=== PATIENT | male | born 1945 | race Caucasian/White ===

== ENCOUNTER 2018-01-01 09:21 | Emergency (ER) | payer BC ==
--- OUTSIDE RECORDS SUMMARY | 2018-01-01 09:54 | XMS REPORT | Continuity of Care Document ---
:1945 External Reference #:[id number] Author Name Dian Crystal Care Team Providers Name Role Phone Jax Hall MD Primary Care Physician Unavailable Payers Type Date Identification Numbers Payment Provider Subscriber Policy Number: [id number] Medicare Blue o Binh Silva PayID: [id number] [facility] [address] [place] [address] Advance Directives Description No Information Available Problems Date Description Provider Status Onset: 08/15/2010 Hyperlipidemia Jax Hall MD Active Onset: 08/15/2010 Obstructive sleep apnea syndrome Jax Hall MD Active Onset: 08/15/2010 Benign hypertensive heart disease without Jax Hall MD Active congestive heart failure Onset: 08/15/2010 Congenital insufficiency of mitral valve Jax Hall MD Active Onset: 08/15/2010 Mitral valve disorder Jax Hall MD Active Onset: 08/15/2010 Coronary arteriosclerosis Jax Hall MD Active Onset: 08/15/2010 Peripheral vascular disease Jax Hall MD Active Onset: 08/15/2010 Palpitations Jax Hall MD Active Onset: 08/15/2010 Carotid artery occlusion Jax Hall MD Active Onset: 08/15/2010 Sinus node dysfunction Jax Hall MD Active Onset: 08/15/2010 Phlebitis and thrombophlebitis Jax Hall MD Active Onset: 08/15/2010 Acute serous otitis media Jax Hall MD Active Onset: 08/15/2010 Primary pulmonary hypertension Jax Hall MD Active Onset: 08/15/2010 Backache Jax Hall MD Active Onset: 08/15/2010 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 Onset: 08/15/2010 Rheumatic disease of tricuspid valve Jax Hall MD Active Onset: 08/15/2010 Hyperkalemia Jax Hall MD Active Family History Date Family Member(s) Problem(s) Comments Father Diabetes Mellitus, II age 70 Father Heart Disease Mother due to Heart Disease () Social History Type Date Description Comments Sex Unknown Cigarette Use Pipe Smoker 30 Years Ago ETOH Use Denies alcohol use Recreational Drug Use Denies Drug Use Tobacco Use Start: Unknown End: Unknown Patient is a former smoker Smoking Status Reviewed: 12/25/16 Patient is a former smoker Seat Belt/Car Seat Always uses a seat belt Allergies, Adverse Reactions, Alerts Description No Known Drug Allergies Medications Medication Date Status Form Strength Qnty SIG Indications Ordering Provider Metformin HCL 10/29/ Active Tablets ER 1000mg 90tabs 1 by mouth E11.65 Jax F. ER (Mod) 2018 24HR every day MD Rafael Freestyle Lite 01/30/ Active 1units test one Jax F. Glucose Meter 2016 time MD Rafael daily. dx e11.65 Freestyle L;Ite 01/30/ Active 90unit test once Jax F. Strips 2016 s daily dx MD Rafael e11.65 Freestyle Lite 01/30/ Active 100uni test once Jax F. Lancets 2016 ts daily dx MD Rafael e11.65 Vitamin D-3 10/19/ Active Capsules 1000Unit 100cap 1 by mouth E55.9 Jax F. 2014 s every day MD Rafael Diltiazem HCL 11/17/ Active Caps ER 360mg 90caps 1 by mouth Jax F. ER Beads 2013 24HR every day MD Rafael Astepro 02/27/ Active Solution 0.15% 1units 1-2 sprays Jax F. 2010 to each MD Rafael nose daily. Enalapril 07/18/ Active Tablets 10mg 180tab 1 by mouth E78.5 Jax F. Maleate 2010 s twice a MD Rafael day Claritin 06/14/ Active Capsules 10mg 30caps 1 po qd Ajx FBlack 2009 MD Rafael Zocor 11/26/ Active Tablets 80mg 90tabs 1 by mouth Jax F. 2007 every day MD Rafael Multivitamins 05/09/ Active Caplets Jax Castellano 2005 MD Rafael Turmeric / Active Capsules 500mg Unknown 0000 Januvia 10/29/ Hx Tablets 50mg 90tabs 1 by mouth E11.65 Jax FBlack 2017 - every day MD Rafael 2017 Metformin HCL 06/26/ Hx Tablets ER 500mg 90tabs tab 1 by E11.65 Jax F. ER 2016 - 24HR mouth MD Rafael 2017 evening Metformin HCL 01/30/ Hx Tablets ER 500mg 90tabs 1 by mouth E11.65 Jax FBlack ER (Mod) 2015 - 24HR every day MD Rafael 2016 Calcium 600-D 10/19/ Hx Tablets 600-400mg- 180tab 1 po bid E55.9 Jax Castellano 2015 - Unit felicity Hall MD 2017 Diltiazem HCL 06/23/ Hx Caps ER 360mg 90caps 1 po qd Jax FBlack ER 2013 - 24HR MD Rafael 2013 Diltiazem XR 12/17/ Hx Caps ER 360mg 90caps 1 po qd Jax Castellano 2012 - 24HR MD Rafael 2012 Diltiazem HCL 12/17/ Hx Caps ER 360mg 90caps 1 po qd Jax Castellano 2012 - 24HR MD Rafael 2013 Zostavax 12/17/ Hx Solution [id number] 1units injection Jax Castellano 2012 - Rec .65ML as ordered MD Rafael 2013 Calcium 600 + D 02/27/ Hx Tablets 600-400mg- 180tab 1 po bid 268.9 Jax Castellano 2011 - Unit felicity Hall MD 2014 Ciprofloxacin 12/20/ Hx Tablets 500mg 20tabs 1 po bid 604.99 Jax Castellano HCL 2010 - MD Rafael 2010 Loratadine 07/13/ Hx Tablets 10mg 90tabs 1 PO qd Jax FBlack 2008 - prn MD Rafael 2008 Levaquin 03/14/ Hx Tablets 500mg 10tabs 1 po qd Josh 2005 Jamila Nguyen MD 2005 Zocor 08/28/ Hx Tablets 80mg 135tab 1 1/2 po q Jax Castellano 2006 - s day MD Rafael 2007 Ibuprofen 05/09/ Hx Caplets 200mg 2 Tabs PO Jax Castellano 2006 - Q 4 HRS MD Rafael 11/17/ prn 2013 Zocor 05/09/ Hx Tablets 80mg 90tabs 1 PO qd. Jax Hall MD 2005 Diltiazem SR 05/09/ Hx Tablets 360 90tabs 1 PO qd Jax Hall MD 2012 Immunizations CPT Code Status Date Vaccine Reaction Lot # [id number] Given 12/25/2016 Flulaval Q2035 Given 12/25/2016 Influenza Virus (Afluria) Split Virus 3 Years Of Age And Older Q2037 Given 01/31/2016 Influenza Vaccine (Fluvirin) 3 Years Of Age Or Older 59891 Given 11/01/2015 Tetanus,Diphtheria,Adut/Adol [id number] Pertussis Q2035 Given 12/23/2014 Influenza Virus (Afluria) Split Virus 3 Years Of Age And Older 26948 Given 10/29/2014 Pneumococcal Conjugate Vaccine [id number] 13 Valent For Intramuscular Use Q2037 Given 01/15/2014 Influenza Vaccine (Fluvirin) 2 Years Of Age Or Older 46912 Given 02/25/2013 Influenza Virus Vaccine Done at [facility] 9h2 (History Only) 16238 Given 02/14/2013 Zostavax Q2037 Given 12/25/2011 Influenza Vaccine (Fluvirin) 3 [id number] Years Of Age Or Older 94180 Given 02/27/2011 Pneumovax Polyvalent Inj Im [id number] Q2036 Given 01/03/2011 Flulaval [id number] 41670 Given 02/28/2010 Influenza Vaccine [id number] 75464 Given 01/01/2008 Influenza Vaccine 52804 42718 Given 01/17/2007 Influenza Vaccine 83393 08980 Given 01/12/2006 Influenza Vaccine 89268 Given 01/12/2006 Influenza Vaccine 22398 00367 Given 01/17/2005 Tetanus And Diptheria Toxiods [id number] 42642 Given 01/17/2005 Tetanus And Diptheria Toxiods Vital Signs Date Vital Result Comment 12/11/2017 2:34pm BP Systolic 110 mmHg BP Diastolic 54 mmHg Heart Rate 58 /min Height 66 inches 5'6" Weight 189.00 lb BMI (Body Mass Index) 30.5 kg/m2 O2 % BldC Oximetry 97 % 10/29/2017 2:18pm BP Systolic 110 mmHg BP Diastolic 58 mmHg Heart Rate 74 /min Height 66 inches 5'6" Weight 197.00 lb BMI (Body Mass Index) 31.8 kg/m2 O2 % BldC Oximetry 95 % 08/22/2017 11:45am BP Systolic 134 mmHg BP Diastolic 70 mmHg Height 66 inches 5'6" Weight 197.00 lb BMI (Body Mass Index) 31.8 kg/m2 07/24/2017 11:17am BP Systolic 144 mmHg BP Diastolic 76 mmHg Heart Rate 74 /min Respiratory Rate 18 /min Height 66 inches 5'6" Weight 197.00 lb BMI (Body Mass Index) 31.8 kg/m2 O2 % BldC Oximetry 97 % 04/30/2017 12:19pm BP Systolic 132 mmHg BP Diastolic 70 mmHg Height 66 inches 5'6" Weight 196.00 lb BMI (Body Mass Index) 31.6 kg/m2 12/25/2016 11:30am BP Systolic 138 mmHg BP Diastolic 70 mmHg Height 66 inches 5'6" Weight 192.00 lb BMI (Body Mass Index) 31.0 kg/m2 06/26/2016 10:41am BP Systolic 140 mmHg BP Diastolic 78 mmHg Height 66 inches 5'6" Weight 192.00 lb BMI (Body Mass Index) 31.0 kg/m2 02/21/2016 11:51am BP Systolic 138 mmHg BP Diastolic 76 mmHg 01/31/2016 11:08am BP Systolic 132 mmHg BP Diastolic 68 mmHg Height 66 inches 5'6" Weight 196.00 lb BMI (Body Mass Index) 31.6 kg/m2 11/01/2015 10:21am BP Systolic 120 mmHg BP Diastolic 62 mmHg Height 66 inches 5'6" Weight 192.00 lb BMI (Body Mass Index) 31.0 kg/m2 06/28/2015 2:21pm BP Systolic 132 mmHg BP Diastolic 68 mmHg Height 66 inches 5'6" Weight 186.00 lb BMI (Body Mass Index) 30.0 kg/m2 02/22/2015 10:19am BP Systolic 140 mmHg BP Diastolic 72 mmHg Height 66 inches 5'6" Weight 202.00 lb BMI (Body Mass Index) 32.6 kg/m2 10/19/2014 9:56am BP Systolic 130 mmHg BP Diastolic 64 mmHg Height 66 inches 5'6" Weight 202.00 lb BMI (Body Mass Index) 32.6 kg/m2 06/29/2014 1:24pm BP Systolic 124 mmHg BP Diastolic 60 mmHg Height 66 inches 5'6" Weight 205.00 lb BMI (Body Mass Index) 33.1 kg/m2 02/23/2014 11:19am BP Systolic 126 mmHg BP Diastolic 78 mmHg Height 66 inches 5'6" Weight 202.00 lb BMI (Body Mass Index) 32.6 kg/m2 11/17/2013 10:48am BP Systolic 118 mmHg BP Diastolic 60 mmHg Height 66 inches 5'6" Weight 204.00 lb BMI (Body Mass Index) 32.9 kg/m2 07/29/2013 9:59am BP Systolic 128 mmHg BP Diastolic 60 mmHg Height 66 inches 5'6" Weight 201.00 lb BMI (Body Mass Index) 32.4 kg/m2 06/23/2013 10:43am BP Systolic 134 mmHg BP Diastolic 80 mmHg Height 66 inches 5'6" Weight 205.00 lb BMI (Body Mass Index) 33.1 kg/m2 12/17/2012 10:01am BP Systolic 124 mmHg BP Diastolic 62 mmHg Height 66 inches 5'6" Weight 202.00 lb BMI (Body Mass Index) 32.6 kg/m2 05/13/2012 10:19am BP Systolic 118 mmHg BP Diastolic 68 mmHg Height 66 inches 5'6" Weight 203.00 lb BMI (Body Mass Index) 32.8 kg/m2 12/25/2011 10:47am BP Systolic 134 mmHg BP Diastolic 64 mmHg Height 66 inches 5'6" Weight 199.00 lb BMI (Body Mass Index) 32.1 kg/m2 06/26/2011 11:01am BP Systolic 142 mmHg BP Diastolic 80 mmHg Height 66 inches 5'6" Weight 198.00 lb BMI (Body Mass Index) 32.0 kg/m2 02/27/2011 11:26am BP Systolic 138 mmHg BP Diastolic 70 mmHg Height 66 inches 5'6" Weight 197.00 lb BMI (Body Mass Index) 31.8 kg/m2 01/03/2011 2:14pm BP Systolic 110 mmHg BP Diastolic 62 mmHg Height 66 inches 5'6" 12/20/2010 3:02pm BP Systolic 120 mmHg BP Diastolic 68 mmHg Body Temperature 97.8 F Height 66 inches 5'6" Weight 193.00 lb BMI (Body Mass Index) 31.1 kg/m2 10/24/2010 3:19pm BP Systolic 124 mmHg BP Diastolic 68 mmHg Height 66 inches 5'6" Weight 200.00 lb BMI (Body Mass Index) 32.3 kg/m2 08/15/2010 2:41pm BP Systolic 122 mmHg pt machine 142/73 BP Diastolic 68 mmHg pt machine 142/73 Height 66 inches 5'6" Weight 202.00 lb BMI (Body Mass Index) 32.6 kg/m2 07/18/2010 11:27am BP Systolic 158 mmHg with pt machine BP Diastolic 86 mmHg with pt machine BP Systolic Recheck 179 mmHg BP Diastolic Recheck 94 mmHg Height 66 inches 5'6" Weight 202.00 lb BMI (Body Mass Index) 32.6 kg/m2 06/27/2010 10:20am BP Systolic 148 mmHg BP Diastolic 80 mmHg Height 66 inches 5'6" Weight 198.00 lb BMI (Body Mass Index) 32.0 kg/m2 02/28/2010 10:43am BP Systolic 146 mmHg BP Diastolic 80 mmHg Height 66 inches 5'6" Weight 198.00 lb BMI (Body Mass Index) 32.0 kg/m2 10/25/2009 10:57am BP Systolic 142 mmHg BP Diastolic 84 mmHg Height 66 inches 5'6" Weight 185.00 lb BMI (Body Mass Index) 29.9 kg/m2 06/14/2009 10:34am BP Systolic 122 mmHg BP Diastolic 70 mmHg Height 66 inches 5'6" Weight 147.00 lb BMI (Body Mass Index) 23.7 kg/m2 03/08/2009 10:06am BP Systolic 126 mmHg BP Diastolic 62 mmHg Height 66 inches 5'6" Weight 193.00 lb BMI (Body Mass Index) 31.1 kg/m2 11/09/2008 10:32am BP Systolic 132 mmHg BP Diastolic 78 mmHg Height 66 inches 5'6" Weight 195.00 lb BMI (Body Mass Index) 31.5 kg/m2 07/13/2008 11:03am BP Systolic 138 mmHg BP Diastolic 78 mmHg Height 66 inches 5'6" Weight 197.00 lb BMI (Body Mass Index) 31.8 kg/m2 03/16/2008 10:15am BP Systolic 136 mmHg BP Diastolic 80 mmHg Height 66 inches 5'6" Weight 196.00 lb BMI (Body Mass Index) 31.6 kg/m2 01/14/2008 2:21pm BP Systolic 128 mmHg BP Diastolic 70 mmHg Height 66 inches 5'6" Weight 192.00 lb BMI (Body Mass Index) 31.0 kg/m2 01/01/2008 3:18pm BP Systolic 144 mmHg L Arm Machine BP Diastolic 72 mmHg L Arm Machine BP Systolic Recheck 128 mmHg R Arm Manual BP Diastolic Recheck 72 mmHg R Arm Manual Height 66 inches 5'6" Weight 190.00 lb BMI (Body Mass Index) 30.7 kg/m2 11/27/2007 11:42am BP Systolic 140 mmHg BP Diastolic 82 mmHg Height 66 inches 5'6" Weight 190.00 lb BMI (Body Mass Index) 30.7 kg/m2 11/05/2007 11:59am BP Systolic 112 mmHg BP Diastolic 64 mmHg Height 66 inches 5'6" Weight 187.00 lb BMI (Body Mass Index) 30.2 kg/m2 12/19/2006 11:07am BP Systolic 122 mmHg BP Diastolic 62 mmHg Height 66 inches 5'6" Weight 191.00 lb BMI (Body Mass Index) 30.8 kg/m2 08/07/2006 3:21pm BP Systolic 112 mmHg BP Diastolic 64 mmHg Height 66 inches 5'6" Weight 192.00 lb BMI (Body Mass Index) 31.0 kg/m2 03/14/2006 10:51am Heart Rate 88 /min Body Temperature 98.2 F Height 66 inches 5'6" O2 % BldC Oximetry 96 % 01/23/2006 10:50am BP Systolic 116 mmHg BP Diastolic 70 mmHg Height 66 inches 5'6" Weight 190.00 lb BMI (Body Mass Index) 30.7 kg/m2 09/12/2005 3:09pm BP Systolic 118 mmHg BP Diastolic 68 mmHg Height 66 inches 5'6" Weight 186.00 lb BMI (Body Mass Index) 30.0 kg/m2 08/28/2005 10:57am BP Systolic 128 mmHg BP Diastolic 80 mmHg Height 66 inches 5'6" Weight 189.00 lb BMI (Body Mass Index) 30.5 kg/m2 2005 10:05am BP Systolic 138 mmHg BP Diastolic 78 mmHg Height 66 inches 5'6" Weight 190.00 lb BMI (Body Mass Index) 30.7 kg/m2 05/10/2005 10:52am BP Systolic 144 mmHg BP Diastolic 84 mmHg Results Test Date Facility Test Result H/L Range Note Laboratory test 10/15/2017 [facility] Hemoglobin A1c 8.4 % High 0-5.[address] [place] [address] [phone] Lipid Panel 10/15/2017 [facility] Cholesterol 161 mg/dL <[address] [place] [address] [phone] HDL Cholesterol 41 mg/dL >40 Cholesterol/HDL Ratio 3.9 CALC <5.0 LDL Chol,Calculated 93 mg/dL 0-100 2 Triglycerides 175 mg/dL High <150 Non-HDL Cholesterol 120 mg/dL <130 3 Basic Metabolic Panel 10/15/2017 [facility] Sodium 141 mmol/L 135-[address] [place] [address] [phone] Potassium 4.2 mmol/L 3.5-5.3 Chloride 106 mmol/L 98-110 Carbon Dioxide 28 mmol/L 20-31 Calcium 9.2 mg/dL 8.6-10.3 Glucose 148 mg/dL High 65-99 4 Urea Nitrogen (BUN) 26 mg/dL High 7-25 Creatinine 1.69 mg/dL High 0.70-1.18 5 BUN/Creatinine Ratio 15.3 6-22 Egfr Non-Afr. [place] 39 ML/MIN/1.73M2 Low > Or=60 Egfr 46 ML/MIN/1.73M2 Low > Or=60 Laboratory test 07/12/2017 [facility] Hemoglobin A1c 8.0 % High 0-5.6 6, [address] [place] [address] [phone] Basic Metab W/O 07/12/2017 [facility] Sodium 139 135-[address] mmol/[place] [address] [phone] Potassium 4.2 mmol/L 3.5-5.3 Chloride 104 mmol/L 98-110 Carbon Dioxide 31 mmol/L 20-31 Glucose 139 mg/dL High 65-99 8 Urea Nitrogen (BUN) 18 mg/dL 7-25 Creatinine 1.43 mg/dL High 0.70-1.18 9 BUN/Creatinine Ratio 12.7 6-22 Lipid Panel 07/12/2017 [facility] Cholesterol 186 mg/dL <199 [address] [place] [address] [phone] HDL Cholesterol 44 mg/dL >40 Cholesterol/HDL Ratio 4.2 CALC <5.0 LDL Chol,Calculated 110 mg/dL High 0-100 10 Triglycerides 196 mg/dL High <150 Non-HDL Cholesterol 142 mg/dL High <130 11 Laboratory test 04/23/2017 [facility] Hemoglobin A1c 7.9 % High 0-5.6 12 finding [address] [facility] [place] [address] [phone] Lipid Panel 04/23/2017 [facility] Cholesterol 152 mg/dL <199 [address] [facility] [place] [address] [phone] HDL Cholesterol 45 mg/dL >40 Cholesterol/HDL Ratio 3.4 CALC <5.0 LDL Chol,Calculated 86 mg/dL 0-100 13 Triglycerides 112 mg/dL <150 Non-HDL Cholesterol 107 mg/dL <130 14 Basic Metabolic Panel 04/23/2017 [facility] Sodium 142 mmol/L 135-146 [address] [facility] [place] [address] [phone] Potassium 5.0 mmol/L 3.5-5.3 Chloride 110 mmol/L 98-110 Carbon Dioxide 28 mmol/L 20-31 Calcium 9.6 mg/dL 8.6-10.3 Glucose 141 mg/dL High 65-99 15 Urea Nitrogen (BUN) 26 mg/dL High 7-25 Creatinine 1.52 mg/dL High 0.70-1.18 16 BUN/Creatinine Ratio 17.4 6-22 Egfr Non-Afr. [place] 45 ML/MIN/1.73M2 Low > Or=60 Egfr 52 ML/MIN/1.73M2 Low > Or=60 Comp Metabolic Panel 11/21/2016 [facility] Sodium 139 mmol/L 135-146 [address] [facility] [place] [address] [phone] Potassium 4.1 mmol/L 3.5-5.3 Chloride 104 mmol/L 98-110 Carbon Dioxide 27 mmol/L 20-31 Calcium 9.2 mg/dL 8.6-10.3 Alkaline Phosphatase 102 U/L 40-115 Ast 25 U/L 10-35 Alt 16 U/L 9-46 Bilirubin,Total 0.5 mg/dL 0.2-1.2 Glucose 131 mg/dL High 65-99 17 Urea Nitrogen 23 mg/dL 7-25 Creatinine 1.45 mg/dL High 0.70-1.18 18 BUN/Creatinine Ratio 15.6 6-22 Protein,Total 7.0 g/dL 6.1-8.1 Albumin 4.1 g/dL 3.6-5.1 Globulin,Calculated 2.9 g/dL 1.9-3.7 A/G Ratio 1.4 1.0-2.5 Egfr Non-Afr. [place] 48 ML/MIN/1.73M2 Low > Or=60 Egfr 55 ML/MIN/1.73M2 Low > Or=60 CBC W/ Diff & PLT 11/21/2016 [facility] WBC 6.7 thous/L 3.8-10.8 [address] [place] [address] [phone] RBC 4.55 mill/L 4.20-5.80 Hemoglobin 13.9 g/dL 13.2-17.1 Hematocrit 41.4 % 38.5-50.0 MCV 91.0 FL 80.0-100.0 MCH 30.6 pg 27.0-33.0 MCHC 33.6 g/dL 32.0-36.0 RDW 14.3 % 11.0-15.0 Platelet Count 151 thous/L 140-400 Platelet Sufficiency PENDING MPV 9.7 FL 7.5-12.5 Neutrophils,Absolute 4290 cells/L 1369-6647 Bands,Absolute PENDING Metamyelocytes,Absolute PENDING Myelocytes,Absolute PENDING Promyelocytes,Absolute PENDING Lymphocytes,Absolute 1690 cells/L 850-3900 Monocytes,Absolute 540 cells/L 200-950 Eosinophils,Absolute 110 cells/L 15-500 Basophils,Absolute 50 cells/L 0-200 Blast Cells,Absolute PENDING Nucleated RBC,Absolute PENDING Total Neutrophils,% 64 % 40-75 Bands,% PENDING Metamyelocytes,% PENDING Myelocytes,% PENDING Promyelocytes,% PENDING Total Lymphocytes,% 25 % 12-47 Monocytes,% 8 % 4-12 Eosinophils,% 2 % 0-4 Basophils,% 1 % 0-1 19 Blasts,% PENDING Nucleated RBC PENDING RBC Morphology PENDING Anisocytosis PENDING Poikilocytosis PENDING Microcytosis PENDING Macrocytosis PENDING Polychromasia PENDING Hypochromasia PENDING Target Cells PENDING Basophilic Stippling PENDING Comment PENDING Laboratory test 11/21/2016 [facility] Hemoglobin A1c 6.9 % High 0-5.6 [address] [place] [address] [phone] Laboratory test 11/21/2016 [facility] Testosterone,To 552 432-[address] elba,LC/MS/MS ng/dL [place], [place] [id number] [phone] Vitamin D,25-Hydroxy,Total,Immunoassay 34 NG/ML 30-100 22 PSA,Total 1.6 NG/ML < Or=4.0 23 Lipid Panel 11/21/2016 [facility] Cholesterol 133 mg/dL 125-[address] [place] [address] [phone] HDL Cholesterol 43 mg/dL > Or=40 Cholesterol/HDL Ratio 3.1 < Or=5.0 LDL Chol,Calculated 65 mg/dL <130 24 Triglycerides 126 mg/dL <150 Non-HDL Cholesterol 90 mg/dL 25 Basic Metabolic Panel 06/19/2016 [facility] Sodium 142 mmol/L 135-[address] [place] [address] [phone] Potassium 4.3 mmol/L 3.5-5.3 Chloride 106 mmol/L 98-110 Carbon Dioxide 28 mmol/L 20-31 Calcium 9.4 mg/dL 8.6-10.3 Glucose 116 mg/dL High 65-99 26 Urea Nitrogen 25 mg/dL 7-25 Creatinine 1.59 mg/dL High 0.70-1.18 27 BUN/Creatinine Ratio 15.5 6-22 Egfr Non-Afr. [place] 43 ML/MIN/1.73M2 Low > Or=60 Egfr 50 ML/MIN/1.73M2 Low > Or=60 Laboratory test 06/19/2016 [facility] Cholesterol 142 mg/dL 125-[address] [place], [place] [address] [phone] Hemoglobin A1c 7.1 % High 0.0-5.6 28 Basic Metabolic Panel 02/14/2016 [facility] Sodium 141 mmol/L 135-[address] [place], [place] [address] [phone] Potassium 4.3 mmol/L 3.5-5.3 Chloride 107 mmol/L 98-110 Carbon Dioxide 28 mmol/L 20-31 Calcium 9.4 mg/dL 8.6-10.3 Glucose 123 mg/dL High 65-99 29 Urea Nitrogen 23 mg/dL 7-25 Creatinine 1.42 mg/dL High 0.70-1.18 30 BUN/Creatinine Ratio 15.9 6-22 Egfr Non-Afr. [place] 49 ML/MIN/1.73M2 Low > Or=60 Egfr 57 ML/MIN/1.73M2 Low > Or=60 Laboratory test 01/24/2016 [facility] Hemoglobin A1c 7.1 % High 0.0-5.6 [address] [place], [place] [address] [phone] Basic Metabolic 01/24/2016 [facility] Sodium 142 135-[address] mmol/[place] [address] [phone] Potassium 4.4 mmol/L 3.5-5.3 Chloride 109 mmol/L 98-110 Carbon Dioxide 26 mmol/L 20-31 Calcium 9.3 mg/dL 8.6-10.3 Glucose 129 mg/dL High 65-99 32 Urea Nitrogen 26 mg/dL High 7-25 Creatinine 1.36 mg/dL High 0.70-1.18 33 BUN/Creatinine Ratio 19.3 6-22 Egfr Non-Afr. [place] 52 ML/MIN/1.73M2 Low > Or=60 Egfr 60 ML/MIN/1.73M2 > Or=60 TSH & T4,Free 10/22/2015 [facility] TSH 2.98 mIU/L 0.40-4.[address] [place] [address] [phone] T4,Free 1.0 ng/dL 0.8-1.8 Laboratory 10/22/2015 [facility] Testosterone,Total,LC/MS/MS 462 250- 1100 34 test finding [address] ng/[place] [address] [phone] PSA,Total 2.1 NG/ML < Or=4.0 35 Vitamin D,25-Hydroxy,Total,Immunoassay 34 NG/ML 30-100 36 CBC W/ Diff & PLT 10/22/2015 [facility] WBC 6.2 thous/L 3.8-10.[address] [place] [address] [phone] RBC 4.51 mill/L 4.20-5.80 Hemoglobin 13.9 g/dL 13.2-17.1 Hematocrit 42.1 % 38.5-50.0 MCV 93.4 FL 80.0-100.0 MCH 30.8 pg 27.0-33.0 MCHC 33.0 g/dL 32.0-36.0 RDW 15.8 % High 11.0-15.0 Platelet Count 167 thous/L 140-400 Platelet Sufficiency PENDING MPV 9.7 FL 7.5-11.5 Neutrophils,Absolute 3790 cells/L [phone] Bands,Absolute PENDING Metamyelocytes,Absolute PENDING Myelocytes,Absolute PENDING Promyelocytes,Absolute PENDING Lymphocytes,Absolute 1640 cells/L 850-3900 Monocytes,Absolute 590 cells/L 200-950 Eosinophils,Absolute 110 cells/L 15-500 Basophils,Absolute 40 cells/L 0-200 Blast Cells,Absolute PENDING Nucleated RBC,Absolute PENDING Total Neutrophils,% 61 % 40-75 Bands,% PENDING Metamyelocytes,% PENDING Myelocytes,% PENDING Promyelocytes,% PENDING Total Lymphocytes,% 27 % 12-47 Monocytes,% 10 % 4-12 Eosinophils,% 2 % 0-4 Basophils,% 1 % 0-1 37 Blasts,% PENDING Nucleated RBC PENDING RBC Morphology PENDING Anisocytosis PENDING Poikilocytosis PENDING Microcytosis PENDING Macrocytosis PENDING Polychromasia PENDING Hypochromasia PENDING Target Cells PENDING Basophilic Stippling PENDING Comment PENDING CMP W/O Egfr 10/22/2015 [facility] Sodium 143 mmol/L 135-[address] [place] [address] [phone] Potassium 4.2 mmol/L 3.5-5.3 Chloride 108 mmol/L 98-110 Carbon Dioxide 24 mmol/L 19-30 Calcium 9.5 mg/dL 8.6-10.3 Alkaline Phosphatase 89 U/L 40-115 Ast 29 U/L 10-35 Alt 18 U/L 9-46 Bilirubin,Total 0.8 mg/dL 0.2-1.2 Glucose 115 mg/dL High 65-99 38 Urea Nitrogen 29 mg/dL High 7-25 Creatinine 1.51 mg/dL High 0.70-1.18 39 BUN/Creatinine Ratio 19.1 6-22 Protein,Total 7.0 g/dL 6.1-8.1 Albumin 4.1 g/dL 3.6-5.1 Globulin,Calculated 2.9 g/dL 1.9-3.7 A/G Ratio 1.4 1.0-2.5 Lipid Panel 10/22/2015 [facility] Cholesterol 165 mg/dL 125-200 [address] [facility] [place] [address] [phone] HDL Cholesterol 50 mg/dL > Or=40 Cholesterol/HDL Ratio 3.3 < Or=5.0 LDL Chol,Calculated 94 mg/dL <130 40 Triglycerides 107 mg/dL <150 Non-HDL Cholesterol 115 mg/dL 41 Lipid Panel 06/21/2015 [facility] Cholesterol 221 mg/dL High 125-200 [address] [facility] [place] [address] [phone] HDL Cholesterol 41 mg/dL > Or=40 Cholesterol/HDL Ratio 5.4 High < Or=5.0 LDL Chol,Calculated 143 mg/dL High <130 42 Triglycerides 185 mg/dL High <150 Non-HDL Cholesterol 180 mg/dL High 43 Lipid Panel 02/08/2015 [facility] Cholesterol 130 mg/dL 125-200 [address] [facility] [place] [address] [phone] HDL Cholesterol 37 mg/dL Low > Or=40 Cholesterol/HDL Ratio 3.5 < Or=5.0 LDL Chol,Calculated 64 mg/dL <130 44 Triglycerides 145 mg/dL <150 Non-HDL Cholesterol 93 mg/dL 45 Laboratory test 10/07/2014 [facility] PSA,Total 1.4 NG/ML 0.0-4.0 46 finding [address] [facility] [place] [address] [phone] Testosterone,Total,LC/MS/MS 446 ng/dL 250-1100 47 Vitamin D,25-Hydroxy,Total,Immunoassay 22 NG/ML Low 30-100 48 CMP W/O Egfr 10/07/2014 [facility] Sodium 140 mmol/L 135-[address] [place] [address] [phone] Potassium 4.1 mmol/L 3.5-5.3 Chloride 105 mmol/L 98-110 Carbon Dioxide 24 mmol/L 19-30 Calcium 9.1 mg/dL 8.6-10.3 Alkaline Phosphatase 87 U/L 40-115 Ast 31 U/L 10-35 Alt 21 U/L 9-46 Bilirubin,Total 0.7 mg/dL 0.2-1.2 Glucose 134 mg/dL High 65-99 49 Urea Nitrogen 17 mg/dL 7-25 Creatinine 1.37 mg/dL High 0.70-1.18 50 BUN/Creatinine Ratio 12.0 6-22 Protein,Total 6.9 g/dL 6.1-8.1 Albumin 3.9 g/dL 3.6-5.1 Globulin,Calculated 3.0 g/dL 1.9-3.7 A/G Ratio 1.3 1.0-2.5 CBC W/ Diff & PLT 10/07/2014 [facility] WBC 6.4 thous/L 3.8-10.[address] [place] [address] [phone] RBC 4.62 mill/L 4.20-5.80 Hemoglobin 14.1 g/dL 13.2-17.1 Hematocrit 43.1 % 38.5-50.0 MCV 93.3 FL 80.0-100.0 MCH 30.5 pg 27.0-33.0 MCHC 32.7 g/dL 32.0-36.0 RDW 15.8 % High 11.0-15.0 Platelet Count 150 thous/L 140-400 Platelet Sufficiency PENDING MPV 10.1 FL 7.5-11.5 Neutrophils,Absolute 4140 cells/L [phone] Bands,Absolute PENDING Metamyelocytes,Absolute PENDING Myelocytes,Absolute PENDING Promyelocytes,Absolute PENDING Lymphocytes,Absolute 1510 cells/L 850-3900 Monocytes,Absolute 560 cells/L 200-950 Eosinophils,Absolute 110 cells/L 15-500 Basophils,Absolute 40 cells/L 0-200 Blast Cells,Absolute PENDING Nucleated RBC,Absolute PENDING Total Neutrophils,% 65 % Not Established Bands,% PENDING Metamyelocytes,% PENDING Myelocytes,% PENDING Promyelocytes,% PENDING Total Lymphocytes,% 24 % Not Established Monocytes,% 9 % Not Established Eosinophils,% 2 % Not Established Basophils,% 1 % Not Established Blasts,% PENDING Nucleated RBC PENDING RBC Morphology PENDING Anisocytosis PENDING Poikilocytosis PENDING Microcytosis PENDING Macrocytosis PENDING Polychromasia PENDING Hypochromasia PENDING Target Cells PENDING Basophilic Stippling PENDING Comment PENDING Lipid Panel 10/07/2014 [facility] Cholesterol 175 mg/dL 125-[address] [place] [address] [phone] HDL Cholesterol 43 mg/dL > Or=40 Cholesterol/HDL Ratio 4.1 < Or=5.0 LDL Chol,Calculated 97 mg/dL <130 51 Triglycerides 173 mg/dL High <150 Non-HDL Cholesterol 132 mg/dL 52 BMP W/O Egfr 06/22/2014 [facility] Sodium 140 mmol/L 135-[address] [place] [address] [phone] Potassium 4.4 mmol/L 3.5-5.3 Chloride 105 mmol/L 98-110 Carbon Dioxide 27 mmol/L 19-30 Calcium 9.0 mg/dL 8.6-10.3 Glucose 149 mg/dL High 65-99 53 Urea Nitrogen 15 mg/dL 7-25 Creatinine 1.35 mg/dL High 0.70-1.18 54 BUN/Creatinine Ratio 10.8 6-22 Lipid Panel 06/22/2014 [facility] Cholesterol 137 mg/dL 125-200 [address] [facility] [place] [address] [phone] HDL Cholesterol 40 mg/dL > Or=40 Cholesterol/HDL Ratio 3.4 < Or=5.0 LDL Chol,Calculated 71 mg/dL <130 55 Triglycerides 129 mg/dL <150 Non-HDL Cholesterol 97 mg/dL 56 Comp Metabolic Panel 02/16/2014 [facility] Sodium 141 mmol/L 135-[address] [place] [address] [phone] Potassium 4.4 mmol/L 3.5-5.3 Chloride 105 mmol/L 98-110 Carbon Dioxide 26 mmol/L 19-30 Calcium 9.1 mg/dL 8.6-10.3 Alkaline Phosphatase 100 U/L 40-115 Ast 29 U/L 10-35 Alt 19 U/L 9-46 Bilirubin,Total 0.4 mg/dL 0.2-1.2 Glucose 111 mg/dL High 65-99 57 Urea Nitrogen 15 mg/dL 7-25 Creatinine 1.32 mg/dL High 0.70-1.25 58 BUN/Creatinine Ratio 11.3 6-22 Protein,Total 7.1 g/dL 6.1-8.1 Albumin 4.0 g/dL 3.6-5.1 Globulin,Calculated 3.1 g/dL 1.9-3.7 A/G Ratio 1.3 1.0-2.5 Egfr Non-Afr. [place] 55 ML/MIN/1.73M2 Low > Or=60 Egfr 63 ML/MIN/1.73M2 > Or=60 Lipid Panel 02/16/2014 [facility] Cholesterol 139 mg/dL 125-[address] [place] [address] [phone] HDL Cholesterol 43 mg/dL > Or=40 Cholesterol/HDL Ratio 3.2 < Or=5.0 LDL Chol,Calculated 71 mg/dL <130 59 Triglycerides 127 mg/dL <150 Non-HDL Cholesterol 97 mg/dL 60 Lipid Panel 11/04/2013 [facility] Cholesterol 128 mg/dL 125-[address] [place] [address] [phone] HDL Cholesterol 37 mg/dL Low > Or=40 Cholesterol/HDL Ratio 3.5 < Or=5.0 LDL Chol,Calculated 62 mg/dL <130 61 Triglycerides 146 mg/dL <150 Non-HDL Cholesterol 91 mg/dL 62 BMP W/O Egfr 11/04/2013 [facility] Sodium 142 mmol/L 135-[address] [place] [address] [phone] Potassium 4.3 mmol/L 3.5-5.3 Chloride 108 mmol/L 98-110 Carbon Dioxide 23 mmol/L 19-30 Calcium 9.2 mg/dL 8.6-10.3 Glucose 109 mg/dL High 65-99 63 Urea Nitrogen 21 mg/dL 7-25 Creatinine 1.42 mg/dL High 0.70-1.25 64 BUN/Creatinine Ratio 14.4 6-22 Comp Metabolic Panel 06/16/2013 [facility] Sodium 143 mmol/L 135-[address] [place] [address] [phone] Potassium 4.5 mmol/L 3.5-5.3 Chloride 107 mmol/L 98-110 Carbon Dioxide 27 mmol/L 19-30 Calcium 9.0 mg/dL 8.6-10.3 Alkaline Phosphatase 99 U/L 40-115 Ast 24 U/L 10-35 Alt 25 U/L 9-46 Bilirubin,Total 0.6 mg/dL 0.2-1.2 Glucose 115 mg/dL High 65-99 65 Urea Nitrogen 14 mg/dL 7-25 Creatinine 1.23 mg/dL 0.70-1.25 66 BUN/Creatinine Ratio 11.5 6-22 Protein,Total 6.6 g/dL 6.1-8.1 Albumin 3.9 g/dL 3.6-5.1 Globulin,Calculated 2.7 g/dL 1.9-3.7 A/G Ratio 1.4 1.0-2.5 Egfr Non-Afr. [place] 60 ML/MIN/1.73M2 > Or=60 Egfr 69 ML/MIN/1.73M2 > Or=60 Lipid Panel 06/16/2013 [facility] Cholesterol 146 mg/dL 125-[address] [place], [place] [id number] [phone] HDL Cholesterol 43 mg/dL > Or=40 Cholesterol/HDL Ratio 3.4 < Or=5.0 LDL Chol,Calculated 74 mg/dL <130 67 Triglycerides 143 mg/dL <150 Non-HDL Cholesterol 104 mg/dL 68 Laboratory test 06/16/2013 [facility] Hemoglobin A1c 7.2 % High 0.0-5.6 [address] [place] [address] [phone] CBC W/ Diff & 06/16/2013 [facility] WBC 6.8 3.8-10.[address] [facility] [place] [address] L [phone] RBC 4.98 mill/L 4.20-5.80 Hemoglobin 15.3 g/dL 13.2-17.1 Hematocrit 45.6 % 38.5-50.0 MCV 91.5 FL 80.0-100.0 MCH 30.6 pg 27.0-33.0 MCHC 33.5 g/dL 32.0-36.0 RDW 13.7 % 11.0-15.0 Platelet Count 152 thous/L 140-400 Neutrophils,Absolute 4330 cells/L 3575-8201 Lymphocytes,Absolute 1610 cells/L 850-3900 Monocytes,Absolute 550 cells/L 200-950 Eosinophils,Absolute 240 cells/L 15-500 Basophils,Absolute 60 cells/L 0-200 Total Neutrophils,% 64 % Not Established Total Lymphocytes,% 24 % Not Established Monocytes,% 8 % Not Established Eosinophils,% 4 % Not Established Basophils,% 1 % Not Established TSH & T4,Free 06/16/2013 [facility] TSH 2.11 mIU/L 0.40-4.[address] [place] [address] [phone] T4,Free 1.1 ng/dL 0.8-1.8 Laboratory 06/16/2013 [facility] Testosterone,Total,LC/MS/MS 428 250- 1100 70 test finding [address] ng/[place] [address] [phone] PSA,Total 1.9 NG/ML 0.0-4.0 71 [facility] 06/16/2013 [facility] Vitamin 30 ng/mL 30-100 25-Hydroxy D [address] D,25-Oh,Total (D2,D3) LC/[place] [address] [phone] Vitamin D,25-Oh,D3 30 ng/mL Vitamin D,25-Oh,D2 <4 ng/mL 72 Laboratory test finding 12/09/2012 [facility] Direct LDL 74 mg/dL <[address] [place], [place] [id number] [phone] Glucose 113 mg/dL High 65-99 74 Vitamin D, 25 04/25/2012 [facility] Vitamin 32 ng/mL 30-[address] D,25-Oh,[place] [address] [phone] Vitamin D,25-Oh,D3 32 ng/mL Vitamin D,25-Oh,D2 <4 ng/mL 75 Comp Metabolic Panel 04/25/2012 [facility] Sodium 143 mmol/L 135-[address] [place] [address] [phone] Potassium 4.4 mmol/L 3.5-5.3 Chloride 109 mmol/L 98-110 Carbon Dioxide 24 mmol/L 21-33 Calcium 9.1 mg/dL 8.6-10.3 Alkaline Phosphatase 90 U/L 40-115 Ast 24 U/L 10-35 Alt 22 U/L 9-60 Bilirubin,Total 0.6 mg/dL 0.2-1.2 Glucose 107 mg/dL High 65-99 76 Urea Nitrogen 21 mg/dL 7-25 Creatinine 1.29 mg/dL High 0.70-1.25 77 BUN/Creatinine Ratio 16.0 6-22 Protein,Total 7.2 g/dL 6.1-8.1 Albumin 4.2 g/dL 3.6-5.1 Globulin,Calculated 3.0 g/dL 1.9-3.7 A/G Ratio 1.4 1.0-2.5 Egfr Non-Afr. [place] 57 ML/MIN/1.73M2 Low > Or=60 Egfr 66 ML/MIN/1.73M2 > Or=60 CBC W/ Diff & PLT 04/25/2012 [facility] WBC 6.8 thous/L 3.8-10.[address] [place] [address] [phone] RBC 4.42 mill/L 4.20-5.80 Hemoglobin 13.7 g/dL 13.2-17.1 Hematocrit 40.5 % 38.5-50.0 MCV 91.8 FL 80.0-100.0 MCH 30.9 pg 27.0-33.0 MCHC 33.7 g/dL 32.0-36.0 RDW 14.9 % 11.0-15.0 Platelet Count 156 thous/L 140-400 Neutrophils,Absolute 4490 cells/L 8497-9703 Lymphocytes,Absolute 1580 cells/L 850-3900 Monocytes,Absolute 490 cells/L 200-950 Eosinophils,Absolute 180 cells/L 15-500 Basophils,Absolute 50 cells/L 0-200 Total Neutrophils,% 66 % 38-80 Total Lymphocytes,% 23 % 15-49 Monocytes,% 7 % 0-13 Eosinophils,% 3 % 0-8 Basophils,% 1 % 0-2 TSH & T4,Free 04/25/2012 [facility] TSH 2.31 mIU/L 0.40-4.50 [address] [facility] [place] [address] [phone] T4,Free 1.2 ng/dL 0.8-1.8 78 Laboratory test 04/25/2012 [facility] PSA,Total 2.0 NG/ML 0.0-4.0 79 finding [address] [facility] [place] [address] [phone] Testosterone,Total,LC/MS/MS 337 ng/dL 250-1100 80 Laboratory 12/11/2011 [facility] LDL Cholesterol,Direct 87 mg/dL <130 81 test finding [address] [facility] [place] [address] [phone] Hepatic 06/12/2011 [facility] Alkaline Phosphatase 98 U/L 40-115 Function Panel [address] [facility] [place] [address] [phone] Ast 21 U/L 10-35 Alt 16 U/L 9-60 Bilirubin,Total 0.6 mg/dL 0.2-1.2 Bilirubin,Direct 0.1 mg/dL < Or=0.2 Protein,Total 7.1 g/dL 6.2-8.3 Albumin 4.0 g/dL 3.6-5.1 Globulin,Calculated 3.1 g/dL 2.1-3.7 A/G Ratio 1.3 1.0-2.1 Lipid Panel 06/12/2011 [facility] Cholesterol 152 mg/dL 125-200 [address] [facility] [place] [address] [phone] HDL Cholesterol 46 mg/dL > Or=40 Cholesterol/HDL Ratio 3.3 < Or=5.0 LDL Chol,Calculated 82 mg/dL <130 82 Triglycerides 120 mg/dL <150 Comp Metabolic Panel 02/09/2011 [facility] Sodium 142 mmol/L 135-146 [address] [place] [address] [phone] Potassium 3.8 mmol/L 3.5-5.3 Chloride 106 mmol/L 98-110 Carbon Dioxide 26 mmol/L 21-33 Calcium 9.0 mg/dL 8.6-10.2 Alkaline Phosphatase 101 U/L 40-115 Ast 26 U/L 10-35 Alt 25 U/L 9-60 Bilirubin,Total 0.7 mg/dL 0.2-1.2 Glucose 86 mg/dL 65-99 83 Urea Nitrogen 18 mg/dL 7-25 Creatinine 1.24 mg/dL 0.76-1.46 BUN/Creatinine Ratio 14.4 6-22 Protein,Total 7.0 g/dL 6.2-8.3 Albumin 4.0 g/dL 3.6-5.1 Globulin,Calculated 3.0 g/dL 2.1-3.7 A/G Ratio 1.3 1.0-2.1 Egfr Non-Afr. [place] 60 ML/MIN/1.73M2 > Or=60 Egfr 70 ML/MIN/1.73M2 > Or=60 CBC W/ Diff & PLT 02/09/2011 [facility] WBC 6.7 thous/L 3.8-10.8 [address] [place] [address] [phone] RBC 4.53 mill/L 4.20-5.80 Hemoglobin 14.4 g/dL 13.2-17.1 Hematocrit 42.8 % 38.5-50.0 MCV 94.6 FL 80.0-100.0 MCH 31.8 pg 27.0-33.0 MCHC 33.6 g/dL 32.0-36.0 RDW 14.6 % 11.0-15.0 Platelet Count 168 thous/L 140-400 Neutrophils,Absolute 4340 cells/L 6998-4485 Lymphocytes,Absolute 1390 cells/L 850-3900 Monocytes,Absolute 600 cells/L 200-950 Eosinophils,Absolute 260 cells/L 15-500 Basophils,Absolute 60 cells/L 0-200 Total Neutrophils,% 65 % 38-80 Total Lymphocytes,% 21 % 15-49 Monocytes,% 9 % 0-13 Eosinophils,% 4 % 0-8 Basophils,% 1 % 0-2 Laboratory 02/09/2011 [facility] LDL Cholesterol,Direct 90 mg/dL <130 84 test finding [address] [place], [place] [address] [phone] Hepatic 02/09/2011 [facility] Alkaline Phosphatase 101 U/L 40-115 Function Panel [address] [place] [address] [phone] Ast 26 U/L 10-35 Alt 25 U/L 9-60 Bilirubin,Total 0.7 mg/dL 0.2-1.2 Bilirubin,Direct 0.2 mg/dL < Or=0.2 Protein,Total 7.0 g/dL 6.2-8.3 Albumin 4.0 g/dL 3.6-5.1 Globulin,Calculated 3.0 g/dL 2.1-3.7 A/G Ratio 1.3 1.0-2.1 TSH & T4,Free 02/09/2011 [facility] TSH,3RD 1.80 mIU/L 0.40-4.[address] [place] [address] [phone] T4,Free 1.2 ng/dL 0.8-1.8 Laboratory 02/09/2011 [facility] Testosterone,Total,Males 394 241-827 85 test finding [address] ng/[place] [address] [phone] Vitamin D, 02/09/2011 [facility] Vitamin D,25-Oh,Total 28 Low 30-[address] ng/[place] [address] [phone] Vitamin D,25-Oh,D3 28 ng/mL Vitamin D,25-Oh,D2 <4 ng/mL 86 Laboratory test 10/13/2010 [facility] LDL Cholesterol,Direct 79 mg/dL < 130 [address] [place] [address] [phone] HDL Cholesterol 41 mg/dL > Or=40 Cholesterol 141 mg/dL 125-200 Triglycerides 139 mg/dL <150 Comp Metabolic Panel 10/13/2010 [facility] Sodium 140 mmol/L 135-[address] [place] [address] [phone] Potassium 4.6 mmol/L 3.5-5.3 Chloride 104 mmol/L 98-110 Carbon Dioxide 27 mmol/L 21-33 Calcium 9.6 mg/dL 8.6-10.2 Alkaline Phosphatase 100 U/L 40-115 Ast 25 U/L 10-35 Alt 27 U/L 9-60 Bilirubin,Total 0.5 mg/dL 0.2-1.2 Glucose 98 mg/dL 65-99 88 Urea Nitrogen 16 mg/dL 7-25 Creatinine 1.31 mg/dL 0.76-1.46 BUN/Creatinine Ratio 12.0 6-22 Protein,Total 7.1 g/dL 6.2-8.3 Albumin 4.2 g/dL 3.6-5.1 Globulin,Calculated 2.9 g/dL 2.1-3.7 A/G Ratio 1.4 1.0-2.1 Egfr Non-Afr. [place] 56 ML/MIN/1.73M2 Low > Or=60 Egfr 65 ML/MIN/1.73M2 > Or=60 Hepatic Function 10/13/2010 [facility] Alkaline 100 U/L 40-[address] [place] [address] [phone] Ast 25 U/L 10-35 Alt 27 U/L 9-60 Bilirubin,Total 0.5 mg/dL 0.2-1.2 Bilirubin,Direct 0.1 mg/dL < Or=0.2 Protein,Total 7.1 g/dL 6.2-8.3 Albumin 4.2 g/dL 3.6-5.1 Globulin,Calculated 2.9 g/dL 2.1-3.7 A/G Ratio 1.4 1.0-2.1 Basic Metabolic Panel 08/08/2010 [facility] Sodium 146 mmol/L 135-[address] [place] [address] [phone] Potassium 4.3 mmol/L 3.5-5.3 Chloride 109 mmol/L 98-110 Carbon Dioxide 28 mmol/L 21-33 Calcium 9.6 mg/dL 8.6-10.2 Glucose 106 mg/dL High 65-99 89 Urea Nitrogen 18 mg/dL 7-25 Creatinine 1.29 mg/dL 0.76-1.46 BUN/Creatinine Ratio 13.6 6-22 Egfr Non-Afr. [place] 57 ML/MIN/1.73M2 Low > Or=60 Egfr 67 ML/MIN/1.73M2 > Or=60 Hepatic Function 06/14/2010 [facility] Alkaline 111 U/L 40-[address] [place] [address] [phone] Ast 34 U/L 10-35 Alt 41 U/L 9-60 Bilirubin,Total 0.5 mg/dL 0.2-1.2 Bilirubin,Direct 0.0 mg/dL < Or=0.2 Protein,Total 7.1 g/dL 6.2-8.3 Albumin 4.0 g/dL 3.6-5.1 Globulin,Calculated 3.1 g/dL 2.1-3.7 A/G Ratio 1.3 1.0-2.1 Laboratory test 02/21/2010 [facility] PSA,Total 2.3 NG/ML 0.0-4.0 [address] [place] [address] [phone] CBC W/ Diff & PLT 02/21/2010 [facility] WBC 5.9 thous/L 3.8-10.[address] [place] [address] [phone] RBC 4.38 mill/L 4.20-5.80 Hemoglobin 14.3 g/dL 13.2-17.1 Hematocrit 41.1 % 38.5-50.0 MCV 94.0 FL 80.0-100.0 MCH 32.6 pg 27.0-33.0 MCHC 34.7 g/dL 32.0-36.0 RDW 14.5 % 11.0-15.0 Platelet Count 181 thous/L 140-400 Platelet Sufficiency NORMAL Normal Neutrophils,Absolute 3820 cells/L [phone] Bands,Absolute DNR cells/L 0-750 Metamyelocytes,Absolute DNR cells/L 0 Myelocytes,Absolute DNR cells/L 0 Promyelocytes,Absolute DNR cells/L 0 Lymphocytes,Absolute 1330 cells/L 850-3900 Monocytes,Absolute 550 cells/L 200-950 Eosinophils,Absolute 210 cells/L 15-500 Basophils,Absolute 40 cells/L 0-200 Blast Cells,Absolute DNR cells/L 0 Nucleated RBC,Absolute DNR cells/L 0 Total Neutrophils,% 64 % 38-80 Bands,% DNR % 0-10 Metamyelocytes,% DNR % Myelocytes,% DNR % Promyelocytes,% DNR % Total Lymphocytes,% 22 % 15-49 Monocytes,% 9 % 0-13 Eosinophils,% 4 % 0-8 Basophils,% 1 % 0-2 Blasts,% DNR % Nucleated RBC DNR /100WBC 0 RBC Morphology NORMAL Anisocytosis DNR Poikilocytosis DNR Microcytosis DNR Macrocytosis DNR Polychromasia DNR Hypochromasia DNR Target Cells DNR Basophilic Stippling DNR Comment DNR Comp Metabolic Panel 02/21/2010 [facility] Sodium 140 mmol/L 135-146 [address] [place] [address] [phone] Potassium 4.8 mmol/L 3.5-5.3 Chloride 104 mmol/L 98-110 Carbon Dioxide 29 mmol/L 21-33 Calcium 9.4 mg/dL 8.6-10.2 Alkaline Phosphatase 119 U/L High 40-115 Ast 27 U/L 10-35 Alt 27 U/L 9-60 Bilirubin,Total 0.5 mg/dL 0.2-1.2 Glucose 99 mg/dL 65-99 91 Urea Nitrogen 18 mg/dL 7-25 Creatinine 1.44 mg/dL 0.76-1.46 BUN/Creatinine Ratio 12.6 6-22 Protein,Total 7.0 g/dL 6.2-8.3 Albumin 4.1 g/dL 3.6-5.1 Globulin,Calculated 2.9 g/dL 2.1-3.7 A/G Ratio 1.4 1.0-2.1 Egfr Non-Afr. [place] 49 ML/MIN/1.73M2 Low > Or=60 Egfr 60 ML/MIN/1.73M2 > Or=60 Lipid Panel 02/21/2010 [facility] Cholesterol 148 mg/dL 125-200 [address] [place] [address] [phone] HDL Cholesterol 45 mg/dL > Or=40 Triglycerides 88 mg/dL <150 Cholesterol/HDL Ratio 3.3 < Or=5.0 LDL Chol,Calculated 85 mg/dL <130 92 Lipid Panel 10/04/2009 [facility] Cholesterol 147 mg/dL 125-[address] [place] [address] [phone] HDL Cholesterol 55 mg/dL > Or=40 Triglycerides 72 mg/dL <150 Cholesterol/HDL Ratio 2.7 < Or=5.0 LDL Chol,Calculated 78 mg/dL <130 93 Hepatic Function 10/04/2009 [facility] Alkaline 105 U/L 40-[address] [place] [address] [phone] Ast 32 U/L 10-35 Alt 25 U/L 9-60 Bilirubin,Total 0.4 mg/dL 0.2-1.2 Bilirubin,Direct 0.1 mg/dL < Or=0.2 Protein,Total 6.8 g/dL 6.2-8.3 Albumin 4.1 g/dL 3.6-5.1 Globulin,Calculated 2.7 g/dL 2.1-3.7 A/G Ratio 1.5 1.0-2.1 Hepatic 05/31/2009 [facility] Alkaline 124 U/L High 40-115 Function Panel [address] [place] [address] [phone] Ast 29 U/L 10-35 Alt 30 U/L 9-60 Bilirubin,Total 0.6 mg/dL 0.2-1.2 Bilirubin,Direct 0.1 mg/dL < Or=0.2 Protein,Total 7.3 g/dL 6.2-8.3 Albumin 4.2 g/dL 3.6-5.1 Globulin,Calculated 3.1 g/dL 2.1-3.7 A/G Ratio 1.4 1.0-2.1 Lipid Panel 05/31/2009 [facility] Cholesterol 157 mg/dL 125-[address] [place] [address] [phone] HDL Cholesterol 49 mg/dL > Or=40 Triglycerides 97 mg/dL <150 Cholesterol/HDL Ratio 3.2 < Or=5.0 LDL Chol,Calculated 89 mg/dL <130 94 Liver Function 02/22/2009 [facility] Total Protein 7.1 g/dL 6.3-8.[address] [place] [address] [phone] Albumin 3.7 g/dL 3.5-5.0 Bilirubin,Total 0.6 mg/dL 0.2-1.2 Bilirubin,Direct 0.1 mg/dL 0.1-0.4 Bilirubin,Indirect 0.5 mg/dL 0.0-0.9 Sgot/Ast 35 U/L 16-40 SGPT/Alt 48 U/L 30-65 Alkaline Phosphatase 122 U/L 50-136 Globulin 3.4 gm/dL 1.9-4.3 Alb/Glob 1.1 LDL Cholesterol 02/22/2009 [facility] Cholesterol 154 mg/dL 120-[address] [place], [place] [id number] [phone] Triglycerides 113 mg/dL 0-210 HDL Cholesterol 45 mg/dL 32-96 LDL-Cholesterol 86 mg/dL 62-185 CBC W/Automated 10/29/2008 [facility] White Blood 7.0 K/uL 3.4-10.[address] [place] [address] [phone] Red Blood Count 4.97 M/uL 4.20-5.80 Hemoglobin 15.4 gm/dL 12.8-17.0 Hematocrit 46.3 % 38.0-48.0 Mean Cell Volume 93.2 fl 80.0-96.0 Mean Corpuscular HGB 31.0 pg 27.0-33.0 Mean Corpuscular HGB Conc 33.3 g/dL 31.7-36.0 Platelet Count 188 K/uL 150-400 Red Cell Distri Width %CV 13.2 % 11.6-15.8 Mean Platelet Volume 11.3 fL High 6.6-10.6 Neut% 70.4 % 33.0-73.0 Lymph % 17.7 % 17.0-56.0 [place] % 9.6 % 0.0-10.0 Eo% 2.0 % 0.0-5.0 Bas% 0.3 % 0.1-1.0 Neut# 4.9 K/uL 1.8-7.0 Lymph # 1.2 K/uL 1.2-4.0 [place] # 0.7 K/uL High 0.0-0.6 Eos # 0.1 K/uL 0.0-0.5 Baso # 0.0 K/uL Low 0.1-0.2 Red Cell Distri Width SD 44 fl 36-51 LDL Cholesterol 10/29/2008 [facility] Cholesterol 168 mg/dL 120-[address] [place] [address] [phone] Triglycerides 85 mg/dL 0-210 HDL Cholesterol 51 mg/dL 32-96 LDL-Cholesterol 100 mg/dL 62-185 Liver Function 10/29/2008 [facility] Total Protein 7.8 g/dL 6.3-8.[address] [place] [address] [phone] Albumin 4.1 g/dL 3.5-5.0 Bilirubin,Total 0.7 mg/dL 0.2-1.2 Bilirubin,Direct 0.1 mg/dL 0.1-0.4 Bilirubin,Indirect 0.6 mg/dL 0.0-0.9 Sgot/Ast 31 U/L 16-40 SGPT/Alt 45 U/L 30-65 Alkaline Phosphatase 123 U/L 50-136 Globulin 3.7 gm/dL 1.9-4.3 Alb/Glob 1.1 Comprehensive 10/29/2008 [facility] Glucose 104 mg/ dL 76-115 Metabolic Panel [address] [place] [address] [phone] BUN 18 mg/dL 5-23 Creatinine 1.3 mg/dL 0.5-1.4 Glom Filtration Rate, Estimate 59 mL/min >60 If >60 mL/min >60 95 BUN/Creat 13.8 Sodium 143 mEq/L 136-145 Potassium 4.3 mEq/L 3.5-5.1 Chloride 109 mEq/L High 98-107 Carbon Dioxide 28 mEq/L 21-32 Anion Gap 10 mEq/L 8-16 Calcium 9.8 mg/dL 8.5-10.1 Total Protein 7.8 g/dL 6.3-8.0 Albumin 4.1 g/dL 3.5-5.0 Globulin 3.7 gm/dL 1.9-4.3 Alb/Glob 1.1 Bilirubin,Total 0.7 mg/dL 0.2-1.2 Sgot/Ast 31 U/L 16-40 SGPT/Alt 45 U/L 30-65 Alkaline Phosphatase 123 U/L 50-136 TSH+Free T4 10/29/2008 [facility] Thyroid Stim 1.89 uIU/mL 0.49-4.67 ([place] & [address] [facility]) [place] [address] [phone] Free T4 0.95 ng/dL 0.71-1.85 Laboratory test 10/29/2008 [facility] Prostate 2.4 ng /mL 0-4.0 [address] Specific Antigen [place], [place] [address] [phone] LDL Cholesterol 07/07/2008 [facility] Cholesterol 173 mg/dL 120-[address] [place] [address] [phone] Triglycerides 124 mg/dL 0-210 HDL Cholesterol 47 mg/dL 32-96 LDL-Cholesterol 101 mg/dL 62-185 Liver Function 07/07/2008 [facility] Total Protein 7.4 g/dL 6.3-8.[address] [place] [address] [phone] Albumin 3.8 g/dL 3.5-5.0 Bilirubin,Total 0.7 mg/dL 0.2-1.2 Bilirubin,Direct 0.1 mg/dL 0.1-0.4 Bilirubin,Indirect 0.6 mg/dL 0.0-0.9 Sgot/Ast 31 U/L 16-40 SGPT/Alt 49 U/L 30-65 Alkaline Phosphatase 127 U/L 50-136 Globulin 3.6 gm/dL 1.9-4.3 Alb/Glob 1.1 Hepatic Function 03/03/2008 [facility] Alkaline Phosphatase 98 U/L 40- [address] [place] [address] [phone] Ast 27 U/L 10-35 Alt 26 U/L 9-60 Bilirubin,Total 0.4 mg/dL 0.2-1.2 Bilirubin,Direct 0.1 mg/dL < Or=0.2 Protein,Total 6.7 g/dL 6.2-8.3 Albumin 3.9 g/dL 3.6-5.1 Globulin,Calculated 2.8 g/dL 2.1-3.7 A/G Ratio 1.4 1.0-2.1 Lipid Panel 03/03/2008 [facility] Cholesterol 158 mg/dL 125-[address] [place] [address] [phone] HDL Cholesterol 44 mg/dL > Or=40 Cholesterol/HDL Ratio 3.6 < Or=5.0 LDL Chol,Calculated 86 mg/dL <130 97 Triglycerides 138 mg/dL <150 CBC With 11/11/2007 [facility] White Blood 6.2 CUMM 4.8-10.8 Electronic Diff [address] [place] [address] [phone] Red Cell Count 4.64 CUMM 4.6-6.2 Hemoglobin 14.4 g/dL 14.0-18.0 Hematocrit 41 % Low 42-52 Mean Corpuscular Volume 89 um3 80-94 Mean Corpuscular Hemoglob 31 pg 27-31 Mean Corpuscular HGB Cone 35 g/dL 32-36 Redcell Distribution WDTH 13 % 10.5-15 Platelet Count 176 CUMM 150-450 Mean Platelet Volume 8.4 um3 7.4-10.4 Gran % 69.3 % 38-83 Lymph % 19.3 % Low 20-45 Mononuclear % 9.2 % High 1-9 Eosinophil % 1.6 % 0-6 Basophil % 0.6 % 0-2 Abs Lymphs 1.2 1.0-4.8 Abs Mononuclear 0.6 0-0.8 Absolute Neutrophil Count 4.3 1.5-7.7 Abs Eosinophils 0.1 0-0.6 Abs Basophils 0 0-0.2 98 Comp Metabolic Panel 11/11/2007 [facility] Sodium 137 mmol/L [phone] [place] [address] [phone] Potassium 4.2 mmol/L 3.5-5.0 Chloride 108 mmol/L 101-111 Co2 (Carbon Dioxide) 29.0 mmol/L 22-32 Anion Gap 0 mmol/L Low 2-11 99 Glucose 107 mg/dL High 70-105 BUN 18 mg/dL 6-24 Creatinine 1.3 mg/dL 0.5-1.4 One Over Creatinine 0.76 BUN/Creatinine Ratio 13.8 8-20 Calcium 8.8 mg/dL 8.1-9.9 100 Total Protein 7.0 GM/DL 6.2-8.1 Albumin 3.6 GM/DL 3.2-5.2 Globulin 3.4 GM/DL 2-4 Albumin/Globulin Ratio 1.1 1-3 Bilirubin Total 0.6 mg/dL 0.4-1.5 Alkaline Phosphatase 92 U/L 39-117 Alt (SGPT) 23 U/L 17-63 Ast (Sgot) 30 U/L 12-42 Lipid Profile 11/11/2007 [facility] Triglyceride 59 mg/dL 40- 200 (Trig/Chol/HDL) [address] [place] [phone] Cholesterol 152 mg/dL Less Than 200 101 High Density Lipoprotein 44 mg/dL 40-60 102 Cholesterol/HDL Ratio 3.45 AVERAGE 1-4.97 Low Density Lipoprotein 96 mg/dL Less Than 100 103 Liver Function 11/11/2007 [facility] Bilirubin Direct 0.2 mg/dL 0.1-0.[address] [place] [phone] Indirect Bilirubin 0.4 mg/dL 0.1-0.75 Laboratory test 11/11/2007 [facility] PSA Screening 3.20 NG/ML 0-4 [address] [place] [phone] Lipid Panel 11/15/2006 [facility] Cholesterol 159 mg/dL 125-200 [address] [place] [address] [phone] HDL Cholesterol 44 mg/dL > Or=40 105 Cholesterol/HDL Ratio 3.6 < Or=5.0 LDL Chol,Calculated 85 mg/dL <130 106 Triglycerides 148 mg/dL <150 Laboratory test finding 11/15/2006 [facility] TSH 2.03 mU/L 0.40-5.50 6 [place] [address] [phone] T4,Free 1.1 ng/dL 0.8-1.8 CBC W/ Diff & PLT 11/15/2006 [facility] WBC 6.5 thous/L 3.8-10.8 6 [place] [address] [phone] RBC 4.62 mill/L 4.20-5.80 Hemoglobin 14.8 g/dL 13.2-17.1 Hematocrit 42.8 % 38.5-50.0 MCV 92.7 FL 80.0-100.0 MCH 32.0 pg 27.0-33.0 MCHC 34.6 g/dL 32.0-36.0 RDW 14.2 % 11.0-15.0 Platelet Count 185 thous/L 140-400 Platelet Sufficiency NORMAL Normal Neutrophils,Absolute 4490 cells/L [phone] Bands,Absolute DNR cells/L 0-750 Metamyelocytes,Absolute DNR cells/L 0 Myelocytes,Absolute DNR cells/L 0 Promyelocytes,Absolute DNR cells/L 0 Lymphocytes,Absolute 1310 cells/L 850-3900 Monocytes,Absolute 550 cells/L 200-950 Eosinophils,Absolute 140 cells/L 15-500 Basophils,Absolute 30 cells/L 0-200 Blast Cells,Absolute DNR cells/L 0 Nucleated RBC,Absolute DNR cells/L 0 Total Neutrophils,% 70 % 38-80 Bands,% DNR % 0-10 Metamyelocytes,% DNR % Myelocytes,% DNR % Promyelocytes,% DNR % Total Lymphocytes,% 20 % 15-49 Monocytes,% 8 % 0-13 Eosinophils,% 2 % 0-8 Basophils,% 0 % 0-2 Blasts,% DNR % Nucleated RBC DNR /100WBC 0 RBC Morphology NORMAL Anisocytosis DNR Poikilocytosis DNR Microcytosis DNR Macrocytosis DNR Polychromasia DNR Hypochromasia DNR Target Cells DNR Basophilic Stippling DNR Comment DNR Comp Metabolic Panel 11/15/2006 [facility] Sodium 140 mmol/L 135-146 [address] [place], [place] [id number] [phone] Potassium 4.2 mmol/L 3.5-5.3 Chloride 106 mmol/L 98-110 Carbon Dioxide 26 mmol/L 21-33 Calcium 9.4 mg/dL 8.6-10.2 Alkaline Phosphatase 96 U/L 40-115 Ast 25 U/L 10-35 Alt 18 U/L 9-60 Bilirubin,Total 0.6 mg/dL 0.2-1.2 Glucose 103 mg/dL High 65-99 107 Urea Nitrogen 17 mg/dL 7-25 Creatinine 1.2 mg/dL 0.5-1.3 BUN/Creatinine Ratio 14.2 6-22 Protein,Total 7.3 g/dL 6.2-8.3 Albumin 4.1 g/dL 3.6-5.1 Globulin,Calculated 3.2 g/dL 2.1-3.7 A/G Ratio 1.3 1.0-2.1 GFR Estimated >60 ML/MIN/1.7 >59 108 Laboratory test 07/17/2006 [facility] PSA,Total 1.7 NG/ML 0.0-4.0 [address] [place] [address] [phone] Hepatic 07/17/2006 [facility] Alkaline 105 U/L 40-115 Function Panel [address] [place] [address] [phone] Ast 28 U/L 10-35 Alt 23 U/L 9-60 Bilirubin,Total 0.6 mg/dL 0.2-1.2 Bilirubin,Direct 0.1 mg/dL < Or=0.2 Protein,Total 7.3 g/dL 6.2-8.3 Albumin 4.1 g/dL 3.6-5.1 Lipid Panel 07/17/2006 [facility] Cholesterol 165 mg/dL 125-[address] [place] [address] [phone] HDL Cholesterol 46 mg/dL > Or=40 110 Cholesterol/HDL Ratio 3.6 < Or=5.0 LDL Chol,Calculated 96 mg/dL <130 111 Triglycerides 116 mg/dL <150 Basic Metabolic Panel 01/12/2006 [facility] Sodium 140 mmol/L 135-[address] [place] [address] [phone] Potassium 4.2 mmol/L 3.5-5.3 Chloride 104 mmol/L 98-110 Carbon Dioxide 28 mmol/L 21-33 Calcium 9.4 mg/dL 8.5-10.4 Glucose 84 mg/dL 65-99 112 Urea Nitrogen 15 mg/dL 7-25 Creatinine 1.3 mg/dL 0.5-1.4 BUN/Creatinine Ratio 11.8 6-25 GFR Estimated 60 ML/MIN/1.7 >59 113 Hepatic Function 01/12/2006 [facility] Alkaline 111 U/L 20-[address] [place] [address] [phone] Ast 35 U/L 3-50 Alt 39 U/L 3-60 Bilirubin,Total 0.6 mg/dL 0.2-1.5 Bilirubin,Direct 0.1 mg/dL 0.0-0.3 Protein,Total 7.3 g/dL 6.0-8.3 Albumin 4.2 g/dL 3.2-4.6 Lipid Panel 01/12/2006 [facility] Cholesterol 165 mg/dL <[address] [place] [address] [phone] HDL Cholesterol 49 mg/dL >40 114 Cholesterol/HDL Ratio 3.4 <5.0 LDL Chol,Calculated 98 mg/dL <130 115 Triglycerides 91 mg/dL <150 Basic Metabolic Panel 08/22/2005 [facility] One Over Creatinine 0.76 [email or web address] [address] [phone] Anion Gap 7.0 mmol/L 2-11 116 BUN 16 mg/dL 6-24 Calcium 8.9 mg/dL 8.7-10.2 Chloride 102 mmol/L 101-111 Co2 (Carbon Dioxide) 27.0 mmol/L 22-32 Glucose 89 mg/dL 70-105 Potassium 3.7 mmol/L 3.5-5.0 Sodium 136 mmol/L 135-145 BUN/Creatinine Ratio 12.3 8-20 Creatinine 1.3 mg/dL 0.5-1.4 Liver Function 08/22/2005 [facility] Albumin/Globulin Ratio 1.3 1-3 Panel [email or web address] [place] [address] [phone] Albumin 3.8 GM/DL 3.2-5.2 Alkaline Phosphatase 92 U/L 39-117 Alt (SGPT) 46 U/L 17-63 Ast (Sgot) 37 U/L 12-42 Bilirubin Direct < 0.1 mg/dL Low 0.1-0.5 Globulin 2.9 GM/DL 2-4 Bilirubin Total 0.7 mg/dL 0.4-1.5 Total Protein 6.7 GM/DL 6.2-8.1 Lipid Profile 08/22/2005 [facility] Cholesterol/HDL 5.10 High 1 -4.97 (Trig/Chol/HDL) [address] [place], [place] [id number] [phone] Cholesterol 204 mg/dL High Less Than 200 117 Triglyceride 165 mg/dL 40-200 High Density Lipoprotein 40 mg/dL 40-60 Low Density Lipoprotein 131 mg/dL High Less Than 100 118 Test Cancellation 05/11/2005 [facility] GONZALEZ [address] [place] [address] [phone] Date & Time 05/11/2005-11:25 Additional Comments DNR 1 For someone without known diabetes, a hemoglobin A1C value of 6.5% or greater indicates that they may have diabetes and this should be confirmed with a follow-up test. For someone with known diabetes, a value <7% indicates that their diabetes is well controlled and a value greater than or equal to 7% indicates suboptimal control. A1C targets should be individualized based on duration of diabetes, age, comorbid conditions, and other considerations. Currently, no consensus exists for use of hemoglobin A1C for diagnosis of diabetes for children. FOR DIAGNOSTIC PURPOSES: A1C VALUE(% OF TOTAL HEMOGLOBIN) INTERPRETATION < 5.7 CONSISTENT WITH THE ABSENCE OF DIABETES 5.7 - 6.4 CONSISTENT WITH INCREASED RISK OF DIABETES > OR=6.5 CONSISTENT WITH DIABETES FOR MONITORING PURPOSES (ADA GUIDELINNES): A1C VALUE(% OF TOTAL HEMOGLOBIN) INTERPRETATION < 6.5 ACHIEVES STRINGENT GLYCEMIC GOAL < 7.0 ACHIEVES GENERAL GLYCEMIC GOAL(NON- ADULTS) < 8.0 ACHIEVES LESS STRINGENT GLYCEMIC GOAL 2 LDL-C is now calculated using the Nohelia calculation, which is a validated novel method providing better accuracy than the Friedewald equation in the estimation of LDL-C. Toni DE OLIVEIRA et al.ARIEL.2013;310(19):7370-7273 Desirable range <100 mg/dL for primary prevention; <70 mg/dL for patients with CHD or diabetic patients with >or=2 CHD risk factors. For additional information, please refer to http://education.[employer]/faq/UTF348(This link is being provided for informational/educational purposes only.) 3 For patients with diabetes plus 1 major ASCVD risk factor, treating to a non-HDL-C goal of <100 mg/dL (LDL-C of <70 mg/ dL) is considered a therapeutic option. 4 GLUCOSE REFERENCE RANGE BASED ON FASTING SPECIMEN. 5 The upper reference limit for Creatinine is approximately 13% higher for people identified as -[place]. 6 FASTING 7 For someone without known diabetes, a hemoglobin A1C value of 6.5% or greater indicates that they may have diabetes and this should be confirmed with a follow-up test. For someone with known diabetes, a value <7% indicates that their diabetes is well controlled and a value greater than or equal to 7% indicates suboptimal control. A1C targets should be individualized based on duration of diabetes, age, comorbid conditions, and other considerations. Currently, no consensus exists for use of hemoglobin A1C for diagnosis of diabetes for children. FOR DIAGNOSTIC PURPOSES: A1C VALUE(% OF TOTAL HEMOGLOBIN) INTERPRETATION < 5.7 CONSISTENT WITH THE ABSENCE OF DIABETES 5.7 - 6.4 CONSISTENT WITH INCREASED RISK OF DIABETES > OR=6.5 CONSISTENT WITH DIABETES FOR MONITORING PURPOSES (ADA GUIDELINNES): A1C VALUE(% OF TOTAL HEMOGLOBIN) INTERPRETATION < 6.5 ACHIEVES STRINGENT GLYCEMIC GOAL < 7.0 ACHIEVES GENERAL GLYCEMIC GOAL(NON- ADULTS) < 8.0 ACHIEVES LESS STRINGENT GLYCEMIC GOAL 8 GLUCOSE REFERENCE RANGE BASED ON FASTING SPECIMEN. 9 The upper reference limit for Creatinine is approximately 13% higher for people identified as -[place]. 10 LDL-C is now calculated using the Toni-Robledo calculation, which is a validated novel method providing better accuracy than the Friedewald equation in the estimation of LDL-C. Toni DE OLIVEIRA et al.ARIEL.2013;310(19):4034-0033 (http://education.Edai.com/faq/LWC820) Desirable range <100 mg/dL for patients with CHD or Diabetes and <70 mg/dL for Diabetic patients with known heart disease 11 For patients with diabetes plus 1 major ASCVD risk factor, treating to a non-HDL-C goal of <100 mg/dL (LDL-C of <70 mg/ dL) is considered a therapeutic option. 12 For someone without known diabetes, a hemoglobin A1C value of 6.5% or greater indicates that they may have diabetes and this should be confirmed with a follow-up test. For someone with known diabetes, a value <7% indicates that their diabetes is well controlled and a value greater than or equal to 7% indicates suboptimal control. A1C targets should be individualized based on duration of diabetes, age, comorbid conditions, and other considerations. Currently, no consensus exists for use of hemoglobin A1C for diagnosis of diabetes for children. FOR DIAGNOSTIC PURPOSES: A1C VALUE(% OF TOTAL HEMOGLOBIN) INTERPRETATION < 5.7 CONSISTENT WITH THE ABSENCE OF DIABETES 5.7 - 6.4 CONSISTENT WITH INCREASED RISK OF DIABETES > OR=6.5 CONSISTENT WITH DIABETES FOR MONITORING PURPOSES (ADA GUIDELINNES): A1C VALUE(% OF TOTAL HEMOGLOBIN) INTERPRETATION < 6.5 ACHIEVES STRINGENT GLYCEMIC GOAL < 7.0 ACHIEVES GENERAL GLYCEMIC GOAL(NON- ADULTS) < 8.0 ACHIEVES LESS STRINGENT GLYCEMIC GOAL 13 LDL-C is now calculated using the Toni-Robledo calculation, which is a validated novel method providing better accuracy than the Friedewald equation in the estimation of LDL-C. Toni SS et al.ARIEL.2013;310(19):6214-8561 (http://education.[employer]i.[employer]track/faq/KYB809) Desirable range <100 mg/dL for patients with CHD or Diabetes and <70 mg/dL for Diabetic patients with known heart disease 14 For patients with diabetes plus 1 major ASCVD risk factor, treating to a non-HDL-C goal of <100 mg/dL (LDL-C of <70 mg/ dL) is considered a therapeutic option. 15 GLUCOSE REFERENCE RANGE BASED ON FASTING SPECIMEN. 16 The upper reference limit for Creatinine is approximately 13% higher for people identified as -[place]. 17 GLUCOSE REFERENCE RANGE BASED ON FASTING SPECIMEN. 18 The upper reference limit for Creatinine is approximately 13% higher for people identified as -[place]. 19 Relative blood cell counts (%) should be compared with absolute cell counts (cells/mcL). Relative counts may not be clinically meaningful if the absolute count of one or more cell type is decreased. Reference ranges for relative cell counts derived from: A Manual of Laboratory and Diagnostics Tests, 9th Ed, Stephanie Elian & Shearer, 2015. Pediatric Reference Intervals, 7th Ed, [employer], 2011. 20 For someone without known diabetes, a hemoglobin A1C value of 6.5% or greater indicates that they may have diabetes and this should be confirmed with a follow-up test. For someone with known diabetes, a value <7% indicates that their diabetes is well controlled and a value greater than or equal to 7% indicates suboptimal control. A1C targets should be individualized based on duration of diabetes, age, comorbid conditions, and other considerations. Currently, no consensus exists for use of hemoglobin A1C for diagnosis of diabetes for children. FOR DIAGNOSTIC PURPOSES: A1C VALUE(% OF TOTAL HEMOGLOBIN) INTERPRETATION < 5.7 CONSISTENT WITH THE ABSENCE OF DIABETES 5.7 - 6.4 CONSISTENT WITH INCREASED RISK OF DIABETES > OR=6.5 CONSISTENT WITH DIABETES FOR MONITORING PURPOSES (ADA GUIDELINNES): A1C VALUE(% OF TOTAL HEMOGLOBIN) INTERPRETATION < 6.5 ACHIEVES STRINGENT GLYCEMIC GOAL < 7.0 ACHIEVES GENERAL GLYCEMIC GOAL(NON- ADULTS) < 8.0 ACHIEVES LESS STRINGENT GLYCEMIC GOAL 21 Men with clinically significant hypogonadal symptoms and testosterone values repeatedly in the range of the 200-300 ng/dL or less, may benefit from testosterone treatment after adequate risk and benefits counseling. For more information on this test, go to http://education.[employer].com/faq/ TotalTestosteroneLCMSMS This test was developed and its analytical performance characteristics have been determined by [employer] [place], [place]. It has not been cleared or approved by the U.S. Food and Drug Administration. This assay has been validated pursuant to the CLIA regulations and is used for clinical purposes. 22 Vitamin D Status 25-OH Vitamin D: Deficiency: <20 ng/mL Insufficiency: 20-29 ng/mL Optimal: > or=30 ng/mL For 25-OH Vitamin D testing on patients on D2-supplementation and patients for whom quantitation of D2 and D3 fractions is required, the [facility] 25-OH Vit D, (D2,D3),LC/MS/MS is recommended: Order code 58695 (patients >2 yrs). 23 The total PSA value from this assay system is standardized against the WHO standard. The test result will be approximately 20% lower when compared to the equimolar-standardized total PSA (Siria Van Lear). Comparison of serial PSA results should be interpreted with this fact in mind. This test was performed using the Siemens chemiluminescent method. Values obtained from different assay methods be used interchangeably. PSA levels, regardless of value, should not be interpreted as absolute evidence of the presence or absence of disease. 24 LDL-CHOLESTEROL RISK CATEGORY* GOAL VERY HIGH (E.G. DIABETES + CVD) <70 MG/DL HIGH (DIABETICS; CHD RISK EQUIVALENTS) <100 MG/DL MODERATELY HIGH (MULTIPLE(2+) RISK FACTORS) <130 MG/DL 0 TO 1 RISK FACTORS <160 MG/DL * NCEP REPORT. CIRCULATION 2004; 110: 227-239 25 Target for non-HDL cholesterol is 30 mg/dL higher than LDL cholesterol target. 26 GLUCOSE REFERENCE RANGE BASED ON FASTING SPECIMEN. 27 The upper reference limit for Creatinine is approximately 13% higher for people identified as -[place]. 28 According to ADA guidelines, hemoglobin A1c <7.0% represents optimal control in non- diabetic patients. Different metrics may apply to specific patient populations. Standards of Medical Care in Diabetes-2013. Diabetes Care. 2013;36:s11-s66 For the purpose of screening for the presence of diabetes: A1C VALUE INTERPRETATION <5.7% Consistent with the absence of diabetes 5.7 - 6.4% Consistent with increased risk for diabetes (prediabetes) > or=6.5% Consistent with diabetes Currently, no consensus exists regarding use of hemoglobin A1C for diagnosis of diabetes in children. 29 GLUCOSE REFERENCE RANGE BASED ON FASTING SPECIMEN. 30 The upper reference limit for Creatinine is approximately 13% higher for people identified as -[place]. 31 According to ADA guidelines, hemoglobin A1c <7.0% represents optimal control in non- diabetic patients. Different metrics may apply to specific patient populations. Standards of Medical Care in Diabetes-2013. Diabetes Care. 2013;36:s11-s66 For the purpose of screening for the presence of diabetes: A1C VALUE INTERPRETATION <5.7% Consistent with the absence of diabetes 5.7 - 6.4% Consistent with increased risk for diabetes (prediabetes) > or=6.5% Consistent with diabetes Currently, no consensus exists regarding use of hemoglobin A1C for diagnosis of diabetes in children. 32 GLUCOSE REFERENCE RANGE BASED ON FASTING SPECIMEN. 33 The upper reference limit for Creatinine is approximately 13% higher for people identified as -[place]. 34 Men with clinically significant hypogonadal symptoms and testosterone values repeatedly in the range of the 200-300 ng/dL or less, may benefit from testosterone treatment after adequate risk and benefits counseling. For more information on this test, go to http://education.[employer].com/faq/ TotalTestosteroneLCMSMS 35 THIS TEST WAS PERFORMED USING THE SIEMENS CHEMILUMINESCENT METHOD. VALUES OBTAINED FROM DIFFERENT ASSAY METHODS CANNOT BE USED INTERCHANGEABLY. PSA LEVELS, REGARDLESS OF VALUE, SHOULD NOT BE INTERPRETED ABSOLUTE EVIDENCE OF THE PRESENCE OR ABSENCE OF DISEASE. 36 Vitamin D Status 25-OH Vitamin D: Deficiency: <20 ng/mL Insufficiency: 20-29 ng/mL Optimal: > or=30 ng/mL For 25-OH Vitamin D testing on patients on D2-supplementation and patients for whom quantitation of D2 and D3 fractions is required, the [facility] 25-OH Vit D, (D2,D3),LC/MS/MS is recommended: Order code [id number] (patients >2 yrs). 37 Relative blood cell counts (%) should be compared with absolute cell counts (cells/mcL). Relative counts may not be clinically meaningful if the absolute count of one or more cell type is decreased. Reference ranges for relative cell counts derived from: A Manual of Laboratory and Diagnostics Tests, 9th Ed, Stephanie Elian & Shearer, 2015. Pediatric Reference Intervals, 7th Ed, [employer], 2011. 38 GLUCOSE REFERENCE RANGE BASED ON FASTING SPECIMEN. 39 The upper reference limit for Creatinine is approximately 13% higher for people identified as -[place]. 40 LDL-CHOLESTEROL RISK CATEGORY* GOAL VERY HIGH (E.G. DIABETES + CVD) <70 MG/DL HIGH (DIABETICS; CHD RISK EQUIVALENTS) <100 MG/DL MODERATELY HIGH (MULTIPLE(2+) RISK FACTORS) <130 MG/DL 0 TO 1 RISK FACTORS <160 MG/DL * NCEP REPORT. CIRCULATION 2004; 110: 227-239 41 Target for non-HDL cholesterol is 30 mg/dL higher than LDL cholesterol target. 42 LDL-CHOLESTEROL RISK CATEGORY* GOAL VERY HIGH (E.G. DIABETES + CVD) <70 MG/DL HIGH (DIABETICS; CHD RISK EQUIVALENTS) <100 MG/DL MODERATELY HIGH (MULTIPLE(2+) RISK FACTORS) <130 MG/DL 0 TO 1 RISK FACTORS <160 MG/DL * NCEP REPORT. CIRCULATION 2004; 110: 227-239 43 Target for non-HDL cholesterol is 30 mg/dL higher than LDL cholesterol target. 44 LDL-CHOLESTEROL RISK CATEGORY* GOAL VERY HIGH (E.G. DIABETES + CVD) <70 MG/DL HIGH (DIABETICS; CHD RISK EQUIVALENTS) <100 MG/DL MODERATELY HIGH (MULTIPLE(2+) RISK FACTORS) <130 MG/DL 0 TO 1 RISK FACTORS <160 MG/DL * [facility]CEP REPORT. CIRCULATION 2004; 110: 227-239 45 Target for non-HDL cholesterol is 30 mg/dL higher than LDL cholesterol target. 46 THIS TEST WAS PERFORMED USING THE SIEMENS CHEMILUMINESCENT METHOD. VALUES OBTAINED FROM DIFFERENT ASSAY METHODS CANNOT BE USED INTERCHANGEABLY. PSA LEVELS, REGARDLESS OF VALUE, SHOULD NOT BE INTERPRETED ABSOLUTE EVIDENCE OF THE PRESENCE OR ABSENCE OF DISEASE. 47 Men with clinically significant hypogonadal symptoms and testosterone values repeatedly in the range of the 200-300 ng/dL or less, may benefit from testosterone treatment after adequate risk and benefits counseling. For more information on this test, go to http://education.[facility].com/faq/ TotalTestosteroneMSMS 48 Vitamin D Status 25-OH Vitamin D: Deficiency: <20 ng/mL Insufficiency: 20-29 ng/mL Optimal: > or=30 ng/mL For 25-OH Vitamin D testing on patients on D2-supplementation and patients for whom quantitation of D2 and D3 fractions is required, the [facility] 25-OH Vit D, (D2,D3),LC/MS/MS is recommended: Order code [id number] (patients >2 yrs). 49 GLUCOSE REFERENCE RANGE BASED ON FASTING SPECIMEN. 50 The upper reference limit for Creatinine is approximately 13% higher for people identified as -[place]. 51 LDL-CHOLESTEROL RISK CATEGORY* GOAL VERY HIGH (E.G. DIABETES + CVD) <70 MG/DL HIGH (DIABETICS; CHD RISK EQUIVALENTS) <100 MG/DL MODERATELY HIGH (MULTIPLE(2+) RISK FACTORS) <130 MG/DL 0 TO 1 RISK FACTORS <160 MG/DL * [facility]CEP REPORT. CIRCULATION 2004; 110: 227-239 52 Target for non-HDL cholesterol is 30 mg/dL higher than LDL cholesterol target. 53 GLUCOSE REFERENCE RANGE BASED ON FASTING SPECIMEN. 54 The upper reference limit for Creatinine is approximately 13% higher for people identified as -[place]. 55 LDL-CHOLESTEROL RISK CATEGORY* GOAL VERY HIGH (E.G. DIABETES + CVD) <70 MG/DL HIGH (DIABETICS; CHD RISK EQUIVALENTS) <100 MG/DL MODERATELY HIGH (MULTIPLE(2+) RISK FACTORS) <130 MG/DL 0 TO 1 RISK FACTORS <160 MG/DL * [facility]CEP REPORT. CIRCULATION 2004; 110: 227-239 56 Target for non-HDL cholesterol is 30 mg/dL higher than LDL cholesterol target. 57 GLUCOSE REFERENCE RANGE BASED ON FASTING SPECIMEN. 58 The upper reference limit for Creatinine is approximately 13% higher for people identified as -[place]. 59 LDL-CHOLESTEROL RISK CATEGORY* GOAL VERY HIGH (E.G. DIABETES + CVD) <70 MG/DL HIGH (DIABETICS; CHD RISK EQUIVALENTS) <100 MG/DL MODERATELY HIGH (MULTIPLE(2+) RISK FACTORS) <130 MG/DL 0 TO 1 RISK FACTORS <160 MG/DL * [facility]CEP REPORT. CIRCULATION 2004; 110: 227-239 60 Target for non-HDL cholesterol is 30 mg/dL higher than LDL cholesterol target. 61 LDL-CHOLESTEROL RISK CATEGORY* GOAL VERY HIGH (E.G. DIABETES + CVD) <70 MG/DL HIGH (DIABETICS; CHD RISK EQUIVALENTS) <100 MG/DL MODERATELY HIGH (MULTIPLE(2+) RISK FACTORS) <130 MG/DL 0 TO 1 RISK FACTORS <160 MG/DL * [facility]CEP REPORT. CIRCULATION 2004; 110: 227-239 62 Target for non-HDL cholesterol is 30 mg/dL higher than LDL cholesterol target. 63 GLUCOSE REFERENCE RANGE BASED ON FASTING SPECIMEN. 64 The upper reference limit for Creatinine is approximately 13% higher for people identified as -[place]. 65 GLUCOSE REFERENCE RANGE BASED ON FASTING SPECIMEN. 66 The upper reference limit for Creatinine is approximately 13% higher for people identified as -[place]. 67 LDL-CHOLESTEROL RISK CATEGORY* GOAL VERY HIGH (E.G. DIABETES + CVD) <70 MG/DL HIGH (DIABETICS; CHD RISK EQUIVALENTS) <100 MG/DL MODERATELY HIGH (MULTIPLE(2+) RISK FACTORS) <130 MG/DL 0 TO 1 RISK FACTORS <160 MG/DL * [facility]CEP REPORT. CIRCULATION 2004; 110: 227-239 68 Target for non-HDL cholesterol is 30 mg/dL higher than LDL cholesterol target. 69 According to ADA guidelines, hemoglobin A1c <7.0% represents optimal control in non- diabetic patients. Different metrics may apply to specific patient populations. Standards of Medical Care in Diabetes-2013. Diabetes Care. 2013;36:s11-s66 For the purpose of screening for the presence of diabetes: A1C VALUE INTERPRETATION <5.7% Consistent with the absence of diabetes 5.7 - 6.4% Consistent with increased risk for diabetes (prediabetes) > or=6.5% Consistent with diabetes Currently, no consensus exists regarding use of hemoglobin A1C for diagnosis of diabetes in children. 70 Men with clinically significant hypogonadal symptoms and testosterone values repeatedly in the range of the 200-300 ng/dL or less, may benefit from testosterone treatment after adequate risk and benefits counseling. For more information on this test, go to http://[email or web address]/ TotalTestosteroneLCMSMS 71 THIS TEST WAS PERFORMED USING THE SIEMENS CHEMILUMINESCENT METHOD. VALUES OBTAINED FROM DIFFERENT ASSAY METHODS CANNOT BE USED INTERCHANGEABLY. PSA LEVELS, REGARDLESS OF VALUE, SHOULD NOT BE INTERPRETED ABSOLUTE EVIDENCE OF THE PRESENCE OR ABSENCE OF DISEASE. 72 25-OHD3 indicates both endogenous production and supplementation. 25-OHD2 is an indicator of exogenous sources such as diet or supplementation. Therapy is based on measurement of Total 25-OHD, with levels <20 ng/mL indicative of Vitamin D deficiency while levels between 20 ng/mL and 30 ng/mL suggest insufficiency. Optimal levels are > or=30ng/mL. For more information on this test, go to http://Safehis/faq/25-OHVitaminD 73 LDL-CHOLESTEROL RISK CATEGORY* GOAL VERY HIGH (E.G. DIABETES + CVD) <70 MG/DL HIGH (DIABETICS; CHD RISK EQUIVALENTS) <100 MG/DL MODERATELY HIGH (MULTIPLE(2+) RISK FACTORS) <130 MG/DL 0 TO 1 RISK FACTORS <160 MG/DL * NCEP REPORT. CIRCULATION 2004; 110: 227-239 74 GLUCOSE REFERENCE RANGE BASED ON FASTING SPECIMEN. 75 25-OHD3 indicates both endogenous production and supplementation. 25-OHD2 is an indicator of exogenous sources such as diet or supplementation. Therapy is based on measurement of Total 25-OHD, with levels <20 ng/mL indicative of Vitamin D deficiency while levels between 20 ng/mL and 30 ng/mL suggest insufficiency. Optimal levels are > or=30ng/mL. For more information on this test, go to http://education.[employer].[email or web address]/25-OHVitaminD 76 GLUCOSE REFERENCE RANGE BASED ON FASTING SPECIMEN. 77 The upper reference limit for Creatinine is approximately 13% higher for people identified as -[place]. 78 THE CURRENT LOT OF FREE T4 REAGENT AVAILABLE FROM THE [employer]STRUCTION [employer] PRODUCES RESULTS THAT ARE APPROXIMATELY 9% HIGHER THAN PREVIOUS REAGENT LOTS. PLEASE INTERPRET THESE RESULTS ACCORDINGLY. 79 THIS TEST WAS PERFORMED USING THE SIEMENS CHEMILUMINESCENT METHOD. VALUES OBTAINED FROM DIFFERENT ASSAY METHODS CANNOT BE USED INTERCHANGEABLY. PSA LEVELS, REGARDLESS OF VALUE, SHOULD NOT BE INTERPRETED ABSOLUTE EVIDENCE OF THE PRESENCE OR ABSENCE OF DISEASE. 80 Aging men with clinically significant hypogonadal symptoms and testosterone values repeatedly in the range of the 200-300 ng/dL or less, may benefit from testosterone treatment after adequate risk and benefits counseling. For more information on this test, go to http://education.[facility].com/faq/ TotalTestosteroneLCMSMS 81 LDL-CHOLESTEROL RISK CATEGORY* GOAL VERY HIGH (E.G. DIABETES + CVD) <70 MG/DL HIGH (DIABETICS; CHD RISK EQUIVALENTS) <100 MG/DL MODERATELY HIGH (MULTIPLE(2+) RISK FACTORS) <130 MG/DL 0 TO 1 RISK FACTORS <160 MG/DL * NCEP REPORT. CIRCULATION 2004; 110: 227-239 82 LDL-CHOLESTEROL RISK CATEGORY* GOAL VERY HIGH (E.G. DIABETES + CVD) <70 MG/DL HIGH (DIABETICS; CHD RISK EQUIVALENTS) <100 MG/DL MODERATELY HIGH (MULTIPLE(2+) RISK FACTORS) <130 MG/DL 0 TO 1 RISK FACTORS <160 MG/DL * [facility]CEP REPORT. CIRCULATION 2004; 110: 227-239 83 GLUCOSE REFERENCE RANGE BASED ON FASTING SPECIMEN. 84 LDL-CHOLESTEROL RISK CATEGORY* GOAL VERY HIGH (E.G. DIABETES + CVD) <70 MG/DL HIGH (DIABETICS; CHD RISK EQUIVALENTS) <100 MG/DL MODERATELY HIGH (MULTIPLE(2+) RISK FACTORS) <130 MG/DL 0 TO 1 RISK FACTORS <160 MG/DL * NCEP REPORT. CIRCULATION 2004; 110: 227-239 85 AGING MEN WITH CLINICALLY SIGNIFICANT HYPOGONADAL SYMPTOMS AND TESTOSTERONE VALUES REPEATEDLY IN THE RANGE OF 200-300 NG/DL OR LESS, MAY BENEFIT FROM TESTOSTERONE TREATMENT AFTER ADEQUATE RISK AND BENEFITS COUNSELING. IN HYPOGONADAL MALES, TESTOSTERONE, TOTAL, LC/MS/MS, IS THE RECOMMENDED ASSAY. THIS TEST CODE (35811V) MUST BE COLLECTED IN A RED-TOP TUBE WITH NO GEL. THE ENDOCRINE SOCIETY RECOMMENDS OBTAINING AT LEAST TWO MORNING (8-10 A.M.) SAMPLES ON DIFFERENT DAYS WHEN SCREENING FOR HYPOGONADISM. 86 25-OHD3 indicates both endogenous production and supplementation. 25-OHD2 is an indicator of exogenous sources such as diet or supplementation. Therapy is based on measurement of Total 25-OHD, with levels <20 ng/mL indicative of Vitamin D deficiency while levels between 20 ng/mL and 30 ng/mL suggest insufficiency. Optimal levels are > or=30ng/mL. 87 LDL-CHOLESTEROL RISK CATEGORY* GOAL VERY HIGH (E.G. DIABETES + CVD) <70 MG/DL HIGH (DIABETICS; CHD RISK EQUIVALENTS) <100 MG/DL MODERATELY HIGH (MULTIPLE(2+) RISK FACTORS) <130 MG/DL 0 TO 1 RISK FACTORS <160 MG/DL * NCEP REPORT. CIRCULATION 2004; 110: 227-239 88 GLUCOSE REFERENCE RANGE BASED ON FASTING SPECIMEN. 89 GLUCOSE REFERENCE RANGE BASED ON FASTING SPECIMEN. 90 THIS TEST WAS PERFORMED USING THE [employer] CHEMILUMINESCENT METHOD. VALUES OBTAINED FROM DIFFERENT ASSAY METHODS CANNOT BE USED INTERCHANGEABLY. PSA LEVELS, REGARDLESS OF VALUE, SHOULD NOT BE INTERPRETED ABSOLUTE EVIDENCE OF THE PRESENCE OR ABSENCE OF DISEASE. 91 GLUCOSE REFERENCE RANGE BASED ON FASTING SPECIMEN. 92 LDL-CHOLESTEROL RISK CATEGORY* GOAL VERY HIGH (E.G. DIABETES + CVD) <70 MG/DL HIGH (DIABETICS; CHD RISK EQUIVALENTS) <100 MG/DL MODERATELY HIGH (MULTIPLE(2+) RISK FACTORS) <130 MG/DL 0 TO 1 RISK FACTORS <160 MG/DL * NCEP REPORT. CIRCULATION 2004; 110: 227-239 93 LDL-CHOLESTEROL RISK CATEGORY* GOAL VERY HIGH (E.G. DIABETES + CVD) <70 MG/DL HIGH (DIABETICS; CHD RISK EQUIVALENTS) <100 MG/DL MODERATELY HIGH (MULTIPLE(2+) RISK FACTORS) <130 MG/DL 0 TO 1 RISK FACTORS <160 MG/DL * NCEP REPORT. CIRCULATION 2004; 110: 227-239 94 LDL-CHOLESTEROL RISK CATEGORY* GOAL VERY HIGH (E.G. DIABETES + CVD) <70 MG/DL HIGH (DIABETICS; CHD RISK EQUIVALENTS) <100 MG/DL MODERATELY HIGH (MULTIPLE(2+) RISK FACTORS) <130 MG/DL 0 TO 1 RISK FACTORS <160 MG/DL * NCEP REPORT. CIRCULATION 2004; 110: 227-239 95 Note: Persistent reduction for 3 months or more in an eGFR <60 mL/min/1.73 m2 defines CKD. Patients with eGFR values >/=60 mL/min/1.73 m2 may also have CKD if evidence of persistent proteinuria is present. The original MDRD equation for estimated GFR is not valid for patients less than 18 years of age. Additional information may be found at [email or web address]. 96 THIS ASSAY IS NOT INTENDED A CANCER SCREENING TEST. *Total_PSA methodology Axsym-MEIA, standardized to WHO 1st IS for PSA 96/670 The concentration of PSA in a given specimen, determined with assays from different manufacturers, can vary due to differences in assay methods and reagent specificity. Values obtained from different assay methods cannot be used interchangeably. 97 LDL-CHOLESTEROL RISK CATEGORY* GOAL VERY HIGH (E.G. DIABETES + CVD) <70 MG/DL HIGH (DIABETICS; CHD RISK EQUIVALENTS) <100 MG/DL MODERATELY HIGH (MULTIPLE(2+) RISK FACTORS) <130 MG/DL 0 TO 1 RISK FACTORS <160 MG/DL * NCEP REPORT. CIRCULATION 2004; 110: 227-239 98 Lymphopenia % 99 Anion gap measurement may be of limited value in the presence of any alkalosis, especially in a combined acid base disorder. . 100 Please note change in reference range effective 07 . 101 CHOLESTEROL INTERPRETATION: Desirable: Less than 200 MG/DL Borderline-High Risk: 200-239 MG/DL High-Risk: 240 MG/DL and over 102 HDL INTERPRETATION: Undesirable: High Risk: Less than 40 MG/DL Desirable: Low Risk: Greater than 60 MG/DL 103 LDL INTERPRETATION: Low Risk Optimal Level: LDL Less than 100 MG/DL Near or Above Optimal: LDL 100-129 MG/DL Borderline High Risk: LDL 130-159 MG/DL High Risk: LDL 160-189 MG/DL Very High Risk: LDL Greater than 189 MG/DL 104 * SERUM LEVELS OF PSA MEASURED USING THE [employer] Complete ACCESS HYBRITECH IMMUNOASSAY SHOULD NOT BE INTERPRETED ABSOLUTE EVIDENCE OF THE PRESENCE OR ABSENCE OF DISEASE. THE PSA VALUE SHOULD BE USED IN CONJUNCTION WITH OTHER PERTINENT CLINICAL DIAGNOSTIC PROCEDURES. 105 HDL REFERENCE RANGES ADULTS (20 YEARS & OLDER) DESIRABLE: > OR=60 MG/DL HIGHER RISK: <40 MG/DL 106 LDL-CHOLESTEROL RISK CATEGORY* GOAL VERY HIGH (E.G. DIABETES + CVD) <70 MG/DL HIGH (DIABETICS; CHD RISK EQUIVALENTS) <100 MG/DL MODERATELY HIGH (MULTIPLE(2+) RISK FACTORS) <130 MG/DL 0 TO 1 RISK FACTORS <160 MG/DL * NCEP REPORT. CIRCULATION 2004; 110: 227-239 107 GLUCOSE REFERENCE RANGE BASED ON FASTING SPECIMEN. 108 THE GFR ESTIMATE IS NOT ADJUSTED FOR RACE, IF THE PATIENT RACE IS -MOZAMBICAN, THE GFR ESTIMATE MUST BE MULTIPLIED BY A FACTOR OF 1.21. 109 PSA VALUES FROM DIFFERENT ASSAY METHODS CANNOT BE USED INTERCHANGEABLY. THIS ASSAY WAS PERFORMED USING THE [employer] CHEMILUMINESCENCE METHOD. 110 HDL REFERENCE RANGES ADULTS (20 YEARS & OLDER) DESIRABLE: > OR=60 MG/DL HIGHER RISK: <40 MG/DL 111 LDL-CHOLESTEROL RISK CATEGORY* GOAL VERY HIGH (E.G. DIABETES + CVD) <70 MG/DL HIGH (DIABETICS; CHD RISK EQUIVALENTS) <100 MG/DL MODERATELY HIGH (MULTIPLE(2+) RISK FACTORS) <130 MG/DL 0 TO 1 RISK FACTORS <160 MG/DL * NCEP REPORT. CIRCULATION 2004; 110: 227-239 112 GLUCOSE REFERENCE RANGE BASED ON FASTING SPECIMEN. 113 THE GFR ESTIMATE IS NOT ADJUSTED FOR RACE, IF THE PATIENT RACE IS -MOZAMBICAN, THE GFR ESTIMATE MUST BE MULTIPLIED BY A FACTOR OF 1.21. 114 HDL REFERENCE RANGES ADULTS (20 YEARS & OLDER) DESIRABLE: > OR=60 MG/DL HIGHER RISK: <40 MG/DL 115 LDL-CHOLESTEROL RISK CATEGORY* GOAL VERY HIGH (E.G. DIABETES + CVD) <70 MG/DL HIGH (DIABETICS; CHD RISK EQUIVALENTS) <100 MG/DL MODERATELY HIGH (MULTIPLE(2+) RISK FACTORS) <130 MG/DL 0 TO 1 RISK FACTORS <160 MG/DL * NCEP REPORT. CIRCULATION 2004; 110: 227-239 116 Anion gap measurement may be of limited value in the presence of any alkalosis, especially in a combined acid base disorder. . 117 Classification: Borderline High . 118 CALCULATED LDL APPROXIMATES THE VALUE OF A DIRECT LDL MEASUREMENT. Classification: Borderline High . Procedures Date Code Description Status 11/21/2016 69145 EKG-Tracing & Report Completed 11/20/2016 46938 Holter Monitor Office Completed 11/09/2016 06977 Echocardiography Completed 11/06/2016 26924 Non-Invcorrotid/Comp /Bilat Study Completed 10/22/2015 28834 Spirometry Graphic Record/Max Voluntary Vent Completed 10/22/2015 88783 EKG-Tracing & Report Completed 10/21/2015 56692 PVR-Atrerial Study Completed 10/21/2015 87521 Holter Monitor Office Completed 10/14/2015 [id number] Bone Mineral Density Test Completed 10/14/2015 75579 Dxa Bone Density [employer] Vertebral Fracture Completed Assessment 10/11/2015 94359 Non-Invcorrotid/Comp /Bilat Study Completed 10/11/2015 86278 Echocardiography Completed 10/09/2014 97885 EKG-Tracing & Report Completed 10/07/2014 36695 Holter Monitor Office Completed 09/24/2014 24445 Non-Invcorrotid/Comp /Bilat Study Completed 09/21/2014 75117 Echocardiography Completed 07/15/2013 97031 EKG-Tracing & Report Completed 07/14/2013 32214 Holter Monitor Office Completed 07/10/2013 17857 Bone Density Completed 07/08/2013 06521 Spirometry Graphic Record/Max Voluntary Vent Completed 07/07/2013 71670 Echocardiography Completed 07/01/2013 35762 Non-Invcorrotid/Comp /Bilat Study Completed 06/30/2013 99228 PVR-Atrerial Study Completed 04/26/2012 87302 EKG-Tracing & Report Completed 04/25/2012 40787 PVR-Atrerial Study Completed 04/25/2012 97077 Spirometry Graphic Record/Max Voluntary Vent Completed 04/25/2012 54171 Holter Monitor Office Completed 04/25/2012 01886 Bone Density Completed 04/23/2012 69287 Non-Invcorrotid/Comp /Bilat Study Completed 04/23/2012 06087 Echocardiography Completed 02/09/2011 48720 Bone Density,Vertebral Fracture Completed 02/09/2011 11827 Bone Density Completed 02/08/2011 63090 EKG-Tracing & Report Completed 02/08/2011 14966 PVR-Atrerial Study Completed 02/08/2011 51844 Non-Invcorrotid/Comp /Bilat Study Completed 02/08/2011 19480 Echocardiography Completed 02/08/2011 38552 Holter Monitor Office Completed 02/21/2010 50334 PFT Evaluation Completed 02/21/2010 55554 PVR-Atrerial Study Completed 02/21/2010 47251 Holter Monitor Office Completed 02/21/2010 33270 EKG-Tracing & Report Completed 02/14/2010 49215 Non-Invcorrotid/Comp /Bilat Study Completed 02/14/2010 84316 Echocardiography Completed 10/29/2008 75417 Holter Monitor Office Completed 10/29/2008 12256 EKG-Tracing & Report Completed 10/21/2008 04578 Non-Invcorrotid/Comp /Bilat Study Completed 10/21/2008 49337 Echocardiography Completed 01/06/2008 27795 PVR-Atrerial Study Completed 11/11/2007 14115 PVR-Atrerial Study Completed 11/11/2007 87258 Holter Monitor Office Completed 11/11/2007 64086 EKG-Tracing & Report Completed 11/05/2007 91186 Doppler Color Flow Velocity Completed 11/05/2007 22193 Doppler/ECHO Completed 11/05/2007 82728 ECHO-2D W/Wo M-Mode Completed 11/05/2007 30466 Non-Invcorrotid/Comp /Bilat Study Completed 03/05/2007 [id number] Colonoscopy Completed 11/23/2006 77888 PFT Evaluation Completed 11/23/2006 30256 Non-Invcorrotid/Comp /Bilat Study Completed 11/23/2006 04474 Doppler Color Flow Velocity Completed 11/23/2006 90980 Doppler/ECHO Completed 11/23/2006 49611 ECHO-2D W/Wo M-Mode Completed 11/23/2006 82039 Holter Monitor Office Completed 11/23/2006 99515 EKG-Tracing & Report Completed 01/12/2006 86186 Non-Invcorrotid/Comp /Bilat Study Completed 01/12/2006 19854 Doppler Color Flow Velocity Completed 01/12/2006 63004 Doppler/ECHO Completed 01/12/2006 81143 ECHO-2D W/Wo M-Mode Completed 01/12/2006 43833 Holter Monitor Office Completed 01/12/2006 67600 EKG-Tracing & Report Completed 01/05/2005 45123 Holter Monitor Office Completed 01/05/2005 15058 EKG-Tracing & Report Completed 01/02/2005 47914 Non-Invcorrotid/Comp /Bilat Study Completed 01/02/2005 14947 Doppler Color Flow Velocity Completed 01/02/2005 54539 Doppler/ECHO Completed 01/02/2005 69698 ECHO-2D W/Wo M-Mode Completed Encounters Type Date Location Provider Dx Diagnosis Office Visit 12/11/2017 Main Office Jax Hall MD R10.30 Lower abdominal pain, 2:30p unspecified E78.5 Hyperlipidemia, unspecified G47.33 Obstructive sleep apnea (adult) (pediatric) E11.65 Type 2 diabetes mellitus with hyperglycemia E55.9 Vitamin D deficiency, unspecified I11.9 Hypertensive heart disease without heart failure Office Visit 10/29/2017 2:10p Main Office Jax Hall, E78.5 HyperlipidemiaMD unspecified I34.0 Nonrheumatic mitral (valve) insufficiency I65.23 Occlusion and stenosis of bilateral carotid arteries G47.33 Obstructive sleep apnea (adult) (pediatric) E11.65 Type 2 diabetes mellitus with hyperglycemia E55.9 Vitamin D deficiency, unspecified I11.9 Hypertensive heart disease without heart failure I35.0 Nonrheumatic aortic (valve) stenosis E66.09 Other obesity due to excess calories Office Visit 08/22/2017 11:10a Main Office Jax Hall E78.5 MD Feliz unspecified Office Visit 07/24/2017 11:10a Main Office Jax Hall E78.5 MD Feliz unspecified I34.0 Nonrheumatic mitral (valve) insufficiency I65.23 Occlusion and stenosis of bilateral carotid arteries G47.33 Obstructive sleep apnea (adult) (pediatric) E11.65 Type 2 diabetes mellitus with hyperglycemia E55.9 Vitamin D deficiency, unspecified I11.9 Hypertensive heart disease without heart failure I35.0 Nonrheumatic aortic (valve) stenosis Office Visit 04/30/2017 11:40a Main Office Jax Hall E78.5 MD Feliz unspecified I34.0 Nonrheumatic mitral (valve) insufficiency I65.23 Occlusion and stenosis of bilateral carotid arteries G47.33 Obstructive sleep apnea (adult) (pediatric) E11.65 Type 2 diabetes mellitus with hyperglycemia E55.9 Vitamin D deficiency, unspecified Office Visit 12/25/2016 11:30a Main Office Jax Hall E78.5 MD Feliz unspecified I34.0 Nonrheumatic mitral (valve) insufficiency I65.23 Occlusion and stenosis of bilateral carotid arteries G47.33 Obstructive sleep apnea (adult) (pediatric) I11.9 Hypertensive heart disease without heart failure I35.0 Nonrheumatic aortic (valve) stenosis Z23 Encounter for immunization Z00.00 Encntr for general adult medical exam w/o abnormal findings Office Visit 06/26/2016 10:40a Main Office Jax Hall G47.33 Obstructive sleep MD apnea (adult) (pediatric) Q23.3 Congenital mitral insufficiency I11.9 Hypertensive heart disease without heart failure E11.65 Type 2 diabetes mellitus with hyperglycemia E78.5 Hyperlipidemia, unspecified Office Visit 02/21/2016 11:50a Main Office Jax Hall, G47.33 Obstructive sleep apnea (adult) (pediatric) Q23.3 Congenital mitral insufficiency I11.9 Hypertensive heart disease without heart failure E11.65 Type 2 diabetes mellitus with hyperglycemia Office Visit 01/31/2016 11:00a Main Office Jax Hall G47.33 Obstructive sleep apnea (adult) (pediatric) Q23.3 Congenital mitral insufficiency I11.9 Hypertensive heart disease without heart failure E78.5 Hyperlipidemia, unspecified E11.65 Type 2 diabetes mellitus with hyperglycemia Office Visit 11/01/2015 10:20a Main Office Jax Hall, G47.33 Obstructive sleep MD apnea (adult) (pediatric) R00.2 Palpitations Q23.3 Congenital mitral insufficiency I11.9 Hypertensive heart disease without heart failure E78.5 Hyperlipidemia, unspecified I73.89 Other specified peripheral vascular diseases Z00.00 Encntr for general adult medical exam w/o abnormal findings E55.9 Vitamin D deficiency, unspecified Z23 Encounter for immunization Office Visit 06/28/2015 2:10p Main Office Jax Hall, G47.33 Obstructive sleep apnea (adult) (pediatric) E78.5 Hyperlipidemia, unspecified Q23.3 Congenital mitral insufficiency I11.9 Hypertensive heart disease without heart failure Office Visit 02/22/2015 10:10a Main Office Jax Hall, G47.33 Obstructive sleep apnea (adult) (pediatric) I11.9 Hypertensive heart disease without heart failure E78.5 Hyperlipidemia, unspecified Office Visit 10/19/2014 10:00a Main Office Jax Hall, 433.10 Occlusion & MD Stenosis Carotid Artery W/O Cerebral Infarction 424.0 Mitral Valve Disorder 327.23 Obstructive Sleep Apnea Adult Pediatric 402.10 Hypertensive Heart Disease Benign W/O Heart Failure 268.9 Vitamin D Deficiency Unspec 272.4 Hyperlipidemia Other Unspec Office Visit 06/29/2014 1:30p Main Office Jax Hall, 272.4 Hyperlipidemia Other Unspec 327.23 Obstructive Sleep Apnea Adult Pediatric 250.00 Diabetes Mellitus W/O Compl Type II Or Unspec Controlled Office Visit 02/23/2014 11:10a Main Office Jax Hall, 272.4 Hyperlipidemia Other Unspec 327.23 Obstructive Sleep Apnea Adult Pediatric 414.01 Coronary Atherosclerosis [place] 402.10 Hypertensive Heart Disease Benign W/O Heart Failure Office Visit 11/17/2013 10:30a Main Office Jax Hall, 402.10 Hypertensive Heart MD Disease Benign W/O Heart Failure 272.4 Hyperlipidemia Other Unspec 424.0 Mitral Valve Disorder Office Visit 07/29/2013 10:00a Main Office Jax Hall, 746.6 Mitral Insufficiency MD Congenital 402.10 Hypertensive Heart Disease Benign W/O Heart Failure 272.4 Hyperlipidemia Other Unspec 424.0 Mitral Valve Disorder 433.10 Occlusion & Stenosis Carotid Artery W/O Cerebral Infarction 327.23 Obstructive Sleep Apnea Adult Pediatric Office Visit 06/23/2013 10:40a Main Office Jax Hall, 272.4 Hyperlipidemia Other Unspec 327.23 Obstructive Sleep Apnea Adult Pediatric 402.10 Hypertensive Heart Disease Benign W/O Heart Failure 414.01 Coronary Atherosclerosis [place] 746.6 Mitral Insufficiency Congenital 433.10 Occlusion & Stenosis Carotid Artery W/O Cerebral Infarction 278.00 Obesity Unspec Office Visit 12/17/2012 10:00a Main Office Jax Hall, 272.4 Hyperlipidemia Other Unspec 327.23 Obstructive Sleep Apnea Adult Pediatric 402.10 Hypertensive Heart Disease Benign W/O Heart Failure 414.01 Coronary Atherosclerosis [place] Office Visit 05/13/2012 10:20a Main Office Jax Hall, 272.4 Hyperlipidemia Other Unspec 327.23 Obstructive Sleep Apnea Adult Pediatric 402.10 Hypertensive Heart Disease Benign W/O Heart Failure 414.01 Coronary Atherosclerosis [place] 746.6 Mitral Insufficiency Congenital Office Visit 12/25/2011 10:40a Main Office Jax Hall, 272.4 Hyperlipidemia Other Unspec 402.10 Hypertensive Heart Disease Benign W/O Heart Failure 414.01 Coronary Atherosclerosis [place] 327.23 Obstructive Sleep Apnea Adult Pediatric 746.6 Mitral Insufficiency Congenital Office Visit 06/26/2011 11:00a Main Office Jax Hall, 272.4 Hyperlipidemia Other Unspec Office Visit 02/27/2011 11:20a Main Office Jax Hall, 733.00 Osteoporosis Unspec MD 433.10 Occlusion & Stenosis Carotid Artery W/O Cerebral Infarction 272.4 Hyperlipidemia Other Unspec 402.10 Hypertensive Heart Disease Benign W/O Heart Failure 414.01 Coronary Atherosclerosis [place] 278.00 Obesity Unspec 327.23 Obstructive Sleep Apnea Adult Pediatric V03.82 Streptococcus Pneumoniae Vaccination Spec Other 268.9 Vitamin D Deficiency Unspec Office Visit 01/03/2011 2:00p Main Office Jax Hall, 272.4 Hyperlipidemia Other Unspec 402.10 Hypertensive Heart Disease Benign W/O Heart Failure 414.01 Coronary Atherosclerosis [place] 327.23 Obstructive Sleep Apnea Adult Pediatric 276.70 Hyperkalemia V04.81 Need For Prophylactic Vaccination & Inoculation/Influenza Office Visit 12/20/2010 2:50p Main Office Jax Hall, 604.99 Orchitis & MD Epididymitis Other Office Visit 10/24/2010 3:20p Main Office Jax Hall, 272.4 Hyperlipidemia Other Unspec 402.10 Hypertensive Heart Disease Benign W/O Heart Failure 414.01 Coronary Atherosclerosis [place] 327.23 Obstructive Sleep Apnea Adult Pediatric 746.6 Mitral Insufficiency Congenital 424.0 Mitral Valve Disorder 786.59 Pain Chest Other Office Visit 08/15/2010 2:40p Main Office Jax Hall, 272.4 Hyperlipidemia Other Unspec 402.10 Hypertensive Heart Disease Benign W/O Heart Failure 414.01 Coronary Atherosclerosis [place] 327.23 Obstructive Sleep Apnea Adult Pediatric Office Visit 07/18/2010 11:20a Main Office Jax Hall, 272.4 Hyperlipidemia Other Unspec 327.23 Obstructive Sleep Apnea Adult Pediatric 402.10 Hypertensive Heart Disease Benign W/O Heart Failure Office Visit 06/27/2010 10:20a Main Office Jax Hall, 272.4 Hyperlipidemia Other Unspec 327.23 Obstructive Sleep Apnea Adult Pediatric 746.6 Mitral Insufficiency Congenital 424.0 Mitral Valve Disorder 414.01 Coronary Atherosclerosis [place] Office Visit 02/28/2010 10:30a Main Office Jax Hall, 272.4 Hyperlipidemia Other Unspec 327.23 Obstructive Sleep Apnea Adult Pediatric 746.6 Mitral Insufficiency Congenital 424.0 Mitral Valve Disorder 402.10 Hypertensive Heart Disease Benign W/O Heart Failure 414.01 Coronary Atherosclerosis [place] V04.81 Need For Prophylactic Vaccination & Inoculation/Influenza Office Visit 10/25/2009 10:50a Main Office Jax Hall, 272.4 Hyperlipidemia Other Unspec 424.0 Mitral Valve Disorder 402.10 Hypertensive Heart Disease Benign W/O Heart Failure 327.23 Obstructive Sleep Apnea Adult Pediatric 427.81 Sinoatrial Node Dysfunction Office Visit 06/14/2009 10:00a Main Office Jax F. Gauss, 272.4 Hyperlipidemia Other Unspec 424.0 Mitral Valve Disorder 402.10 Hypertensive Heart Disease Benign W/O Heart Failure 327.23 Obstructive Sleep Apnea Adult Pediatric 414.01 Coronary Atherosclerosis [place] Office Visit 03/08/2009 10:10a Main Office Jax Hall, 272.4 Hyperlipidemia Other Unspec 424.0 Mitral Valve Disorder 402.10 Hypertensive Heart Disease Benign W/O Heart Failure 327.23 Obstructive Sleep Apnea Adult Pediatric Office Visit 11/09/2008 10:30a Main Office Jax Hall, 272.4 Hyperlipidemia Other Unspec 424.0 Mitral Valve Disorder 402.10 Hypertensive Heart Disease Benign W/O Heart Failure 414.01 Coronary Atherosclerosis [place] 327.23 Obstructive Sleep Apnea Adult Pediatric Office Visit 07/13/2008 10:50a Main Office Jax Hall, 402.10 Hypertensive Heart MD Disease Benign W/O Heart Failure 272.4 Hyperlipidemia Other Unspec 427.81 Sinoatrial Node Dysfunction GENERAL General Office Visit 03/16/2008 10:00a Main Office Jax Hall, 402.10 Hypertensive Heart MD Disease Benign W/O Heart Failure 272.4 Hyperlipidemia Other Unspec 427.81 Sinoatrial Node Dysfunction 746.6 Mitral Insufficiency Congenital Office Visit 01/14/2008 2:20p Main Office Jax Hall, 402.10 Hypertensive Heart MD Disease Benign W/O Heart Failure 272.4 Hyperlipidemia Other Unspec 427.81 Sinoatrial Node Dysfunction 746.6 Mitral Insufficiency Congenital 746.60 Mitral Regurgitation 272.40 Hyperlipidemia Office Visit 01/01/2008 3:10p Main Office Jax Hall, 402.10 Hypertensive Heart MD Disease Benign W/O Heart Failure 451.90 DVT-Unspec Site 381.01 Otitis Media Serous Acute V04.81 Need For Prophylactic Vaccination & Inoculation/Influenza Office Visit 11/27/2007 11:20a Main Office Jax Hall, 272.4 Hyperlipidemia Other MD Unspec 427.81 Sinoatrial Node Dysfunction 746.6 Mitral Insufficiency Congenital 746.60 Mitral Regurgitation 416.0 Hypertension Pulmonary Primary GENERAL General Office Visit 11/05/2007 11:30a Main Office Jax Hall, 746.6 Mitral Insufficiency MD Congenital 746.60 Mitral Regurgitation 433.10 Occlusion & Stenosis Carotid Artery W/O Cerebral Infarction 272.40 Hyperlipidemia 414.01 Coronary Atherosclerosis [place] 402.10 Hypertensive Heart Disease Benign W/O Heart Failure 724.5 Backache Unspec Office Visit 12/19/2006 11:00a Main Office Jax Hall, 746.60 Mitral Regurgitation 427.81 Sinoatrial Node Dysfunction 433.10 Occlusion & Stenosis Carotid Artery W/O Cerebral Infarction 427.90 Arrhythmia 272.40 Hyperlipidemia 414.01 Coronary Atherosclerosis [place] 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 276.70 Hyperkalemia 592.0 Calculus Of Kidney 402.10 Hypertensive Heart Disease Benign W/O Heart Failure Office Visit 08/07/2006 3:20p Main Office Jax Hall, 746.60 Mitral Regurgitation 272.40 Hyperlipidemia 414.01 Coronary Atherosclerosis [place] 427.90 Arrhythmia 397.0 Tricuspid Valve Disease 433.10 Occlusion & Stenosis Carotid Artery W/O Cerebral Infarction 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 276.70 Hyperkalemia 785.20 Heart Murmur Office Visit 03/14/2006 10:30a Main Office Josh Nguyen MD 465.9 URI Upper Respiratory Infections Acute Unspec Sites Office Visit 01/23/2006 10:40a Main Office Jax Hall, 746.60 Mitral Regurgitation 272.40 Hyperlipidemia 414.01 Coronary Atherosclerosis [place] 427.90 Arrhythmia 592.0 Calculus Of Kidney 724.30 Sciatica 397.0 Tricuspid Valve Disease Office Visit 09/12/2005 2:50p Main Office Jax Hall, 572.8 Liver Disease Chronic MD Other Sequelae Office Visit 08/28/2005 10:50a Main Office Jax Hall, 272.40 Hyperlipidemia 433.10 Occlusion & Stenosis Carotid Artery W/O Cerebral Infarction 414.01 Coronary Atherosclerosis [place] 786.59 Pain Chest Other 746.60 Mitral Regurgitation 427.90 Arrhythmia 402.10 Hypertensive Heart Disease Benign W/O Heart Failure 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 724.5 Backache Unspec 276.70 Hyperkalemia 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 Office Visit 2005 10:00a Main Office Jax Hall MD 592.0 Calculus Of Kidney V03.7 Tetanus Toxoid Vaccination & Inoculation 272.40 Hyperlipidemia 433.10 Occlusion & Stenosis Carotid Artery W/O Cerebral Infarction 414.01 Coronary Atherosclerosis [place] 786.59 Pain Chest Other 746.60 Mitral Regurgitation 427.90 Arrhythmia 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 724.5 Backache Unspec Office Visit 05/10/2005 10:40a Main Office Jax Hall, 592.0 Calculus Of Kidney MD Office Visit 01/17/2005 10:40a Main Office Jax Hall, 402.10 Hypertensive Heart MD Disease Benign W/O Heart Failure V03.7 Tetanus Toxoid Vaccination & Inoculation Office Visit 08/29/2004 10:50a Main Office Jax Castellano 414.01 Coronary MD Rafael Atherosclerosis [place] 272.40 Hyperlipidemia Office Visit 05/30/2004 10:10a Main Office Jax Hall, 276.70 Hyperkalemia MD Office Visit 05/02/2004 10:50a Main Office Jax Hall 402.10 Hypertensive Heart Disease Benign W/O Heart Failure Office Visit 03/28/2004 11:10a Main Office Jax Hall 272.40 Hyperlipidemia 402.10 Hypertensive Heart Disease Benign W/O Heart Failure Office Visit 03/08/2004 3:10p Main Office Jax Castellano 274.11 Nephrolithiasis Uric MD Rafael Acid Office Visit 12/28/2003 10:00a Main Office Jax Castellano 402.10 Hypertensive Heart MD Rafael Disease Benign W/O Heart Failure 272.40 Hyperlipidemia Office Visit 11/09/2003 11:30a Main Office Jax Hall MD 272.40 Hyperlipidemia Office Visit 07/29/2003 2:00p Main Office Jax Hall MD 272.40 Hyperlipidemia Office Visit 07/20/2003 3:20p Main Office Jax Hall MD 724.30 Sciatica 272.40 Hyperlipidemia Plan of Treatment Future Appointment(s):01/28/2018 1:30 pm - [facility] Kmcriz5501/24/2018 8:00 am - Nurse at Main Eezokq6601/23/2018 9:15 am - Nurse at Main [id number] 11:00 am - Jax Hall MD at Main Crijfv3512/11/2017 - Jax Hall, MDR10.30 Lower abdominal pain, unspecifiedNew Xrays:CT Abdomen/Pelvis With Contrast, Ordered: 12/11/17Comments:greater than 10 years since last colonoscopychange in bowel habits, bloating lower abdo sxE78.5 Hyperlipidemia, unspecifiedComments:Counselled on role of diet and excersize and importance to keep compliance with medication if prescribed and side effects. The importance of routine monitoring of blood lipids and liver tests to managetreatment and avoid side effects were discussed. Usual follow up is 3 months for LFT and Lipid profile. Patient education including dietary guidelines and materials provided.G47.33 Obstructive sleep apnea (adult) (pediatric)Comments:Continue CPAPWeight LossE11.65 Type 2 diabetes mellitus with hyperglycemiaComments: Continue with medication as directed. Continue with reduced carb diet. To continue with fingerstick monitoring Q Day Continue to follow reduced carbohydrate low fat diet. Exercise regularly. Needs annual blood sugar evaluation. Emphasized weight control to manage blood sugar longterm.E55.9 Vitamin D deficiency, [id number] Hypertensive heart disease without heart failureComments:CONT. TO MONITOR BP, CONT. LOW SALT DIET Discussed lifestyle factors and role of diet and excerns incontrol of disease and treatment goals and targets. Medication side effects and compliance issues addressed as indicated. The importance of ongoing self monitoring of BP and the symptoms of complications such as TIA, CVA and AMI reviewed. The importance of reporting changes in between visits and side effects stressed. monitoring of patient provided BP checks and laboratory tests related to medicationreviewed. Discussed lifestyle factors and role of diet and excerns in control of disease and treatment goals and targets. Medication side effects and compliance issues addressed as indicated. The importance of ongoing self monitoring of BP and the symptoms of complications such as TIA, CVA and AMI reviewed. The importance of reporting changes in between visits and side effects stressed. monitoring of patient provided BP checks and laboratory tests related to medication reviewed.
--- OUTSIDE RECORDS SUMMARY | 2018-01-01 09:56 | XMS REPORT | Continuity of Care Document ---
:1945 External Reference #:[id number] Author Name Do Ruiz Care Team Providers Name Role Phone Jax Hall MD Primary Care Physician Unavailable Payers Type Date Identification Numbers Payment Provider Subscriber Policy Number: [id number] Medicare Blue Ppo Binh Silva PayID: [id number] [facility] [address] [place] [id number] Advance Directives Description No Information Available Problems [...] 1 by mouth Jax F. ER Beads 2014 24HR every day MD Rafael Astepro 02/27/ Active Solution 0.15% 1units 1-2 sprays Jax F. 2010 to each MD Rafael nose daily. Enalapril 07/18/ Active Tablets 10mg 180tab 1 by mouth E78.5 Jax F. Maleate 2010 s twice a MD Rafael day Claritin 06/14/ Active Capsules 10mg 30caps 1 po qd Jax FBlack 2009 MD Rafael Zocor 11/26/ Active Tablets 80mg 90tabs 1 by mouth Jax F. 2007 every day MD Rafael Multivitamins 05/09/ Active Caplets Jax FBlack 2005 MD Rafael Turmeric / Active Capsules 500mg Unknown 0000 Januvia 10/29/ Hx Tablets 50mg 90tabs 1 by mouth E11.65 Jax F. 2017 - every day MD Rafael 2017 Metformin HCL 06/26/ Hx Tablets ER 500mg 90tabs tab 1 by E11.65 Jax F. ER 2017 - 24HR mouth MD Rafael 2017 evening Metformin HCL 01/30/ Hx Tablets ER 500mg 90tabs 1 by mouth E11.65 Jax F. ER (Mod) 2015 - 24HR every day MD Rafael 2016 Calcium 600-D 10/19/ Hx Tablets 600-400mg- 180tab 1 po bid E55.9 Jax F. 2015 - Unit felicity Hall MD 2017 Diltiazem HCL 06/23/ Hx Caps ER 360mg 90caps 1 po qd Jax FBlack ER 2013 - 24HR MD Rafael 2013 Diltiazem XR 12/17/ Hx Caps ER 360mg 90caps 1 po qd Jax FBlack 2012 - 24HR MD Rafael 2012 Diltiazem HCL 12/17/ Hx Caps ER 360mg 90caps 1 po qd Jax FBlack 2012 - 24HR MD Rafael 2013 Zostavax 12/17/ Hx Solution [id number] 1units injection Jax FBlack 2012 - Rec .65ML as ordered MD Rafael 2013 Calcium 600 + D 02/27/ Hx Tablets 600-400mg- 180tab 1 po bid 268.9 Jax FBlack 2011 - Unit felicity Hall MD 2014 Ciprofloxacin 12/20/ Hx Tablets 500mg 20tabs 1 po bid 604.99 Jax F. HCL 2010 - MD Rafael 2010 Loratadine 07/13/ Hx Tablets 10mg 90tabs 1 PO qd Jax F. 2008 - prnivia Hall MD 2008 Levaquin 03/14/ Hx Tablets 500mg 10tabs [...] (Fluvirin) 2 Years Of Age Or Older [address] Given 11/01/2015 Tetanus,Diphtheria,Adut/Adol [id number] Pertussis Q2035 Given 12/23/2014 Influenza Virus (Afluria) Split Virus 2 Years Of Age And Older 61447 Given 10/29/2014 Pneumococcal Conjugate Vaccine [id number] 13 Valent For Intramuscular Use Q2037 Given 01/15/2014 Influenza Vaccine (Fluvirin) 2 Years Of Age Or Older 49543 Given 02/25/2013 Influenza Virus Vaccine Done at [facility] [id number] (History Only) 01490 Given 02/14/2013 Zostavax Q2037 Given 12/25/2011 Influenza Vaccine (Fluvirin) 2 [id number] Years Of Age Or Older [address]1270 Given 02/27/2011 Pneumovax Polyvalent Inj Im [id number] Q2036 Given 01/03/2011 Flulaval [id number] 74304 Given 02/28/2010 Influenza Vaccine [id number] 14669 Given 01/01/2008 Influenza Vaccine 99953 74641 Given 01/17/2007 Influenza Vaccine 21535 92956 Given 01/12/2006 Influenza Vaccine 57155 Given 01/12/2006 Influenza Vaccine 22747 93900 Given 01/17/2005 Tetanus And Diptheria Toxiods [id number] 41112 Given 01/17/2005 Tetanus And Diptheria Toxiods Vital [...] Date Facility Test Result H/L Range Note Lipid Panel 10/15/2017 [facility] Cholesterol 161 mg/dL <[address] [place] [address] [phone] HDL Cholesterol 41 mg/dL >40 Cholesterol/HDL Ratio 3.9 CALC <5.0 LDL Chol,Calculated 93 mg/dL 0-100 1 Triglycerides 175 mg/dL High <150 Non-HDL Cholesterol 120 mg/dL <130 2 Basic Metabolic Panel 10/15/2017 [facility] Sodium 141 mmol/L 135-[address] [place] [address] [phone] Potassium 4.2 mmol/L 3.5-5.3 Chloride 106 mmol/L 98-110 Carbon Dioxide 28 mmol/L 20-31 Calcium 9.2 mg/dL 8.6-10.3 Glucose 148 mg/dL High 65-99 3 Urea Nitrogen (BUN) 26 mg/dL High 7-25 Creatinine 1.69 mg/dL High 0.70-1.18 4 BUN/Creatinine Ratio 15.3 6-22 Egfr Non-Afr. Guatemalan 39 ML/MIN/1.73M2 Low > Or=60 Egfr 46 ML/MIN/1.73M2 Low > Or=60 Laboratory test 10/15/2017 [facility] Hemoglobin A1c 8.4 % High 0-5.6 [address] [place] [address] [phone] Basic Metab W/O 07/12/2017 [facility] Sodium 139 135-146 [address] mmol/[place] [address] [phone] Potassium 4.2 mmol/L 3.5-5.3 Chloride 104 mmol/L 98-110 Carbon Dioxide 31 mmol/L 20-31 Glucose 139 mg/dL High 65-99 7 Urea Nitrogen (BUN) 18 mg/dL 7-25 Creatinine 1.43 mg/dL High 0.70-1.18 8 BUN/Creatinine Ratio 12.7 6-22 Lipid Panel 07/12/2017 [facility] Cholesterol 186 mg/dL <[address] [place] [address] [phone] HDL Cholesterol 44 mg/dL >40 Cholesterol/HDL Ratio 4.2 CALC <5.0 LDL Chol,Calculated 110 mg/dL High 0-100 9 Triglycerides 196 mg/dL High <150 Non-HDL Cholesterol 142 mg/dL High <130 10 Laboratory test 07/12/2017 [facility] Hemoglobin A1c 8.0 % High 0-5.6 [address] [place], [place] [address] [phone] Lipid Panel 04/23/2017 [facility] Cholesterol 152 mg/dL <[address] [place] [address] [phone] HDL Cholesterol 45 mg/dL >40 Cholesterol/HDL Ratio 3.4 CALC <5.0 LDL Chol,Calculated 86 mg/dL 0-100 12 Triglycerides 112 mg/dL <150 Non-HDL Cholesterol 107 mg/dL <130 13 Basic Metabolic Panel 04/23/2017 [facility] Sodium 142 mmol/L 135-[address] [place] [address] [phone] Potassium 5.0 mmol/L 3.5-5.3 Chloride 110 mmol/L 98-110 Carbon Dioxide 28 mmol/L 20-31 Calcium 9.6 mg/dL 8.6-10.3 Glucose 141 mg/dL High 65-99 14 Urea Nitrogen (BUN) 26 mg/dL High 7-25 Creatinine 1.52 mg/dL High 0.70-1.18 15 BUN/Creatinine Ratio 17.4 6-22 Egfr Non-Afr. Guatemalan 45 ML/MIN/1.73M2 Low > Or=60 Egfr 52 ML/MIN/1.73M2 Low > Or=60 Laboratory test 04/23/2017 [facility] Hemoglobin A1c 7.9 % High 0-5.6 [address] [place] [address] [phone] Comp Metabolic 11/21/2016 [facility] Sodium 139 135-[address] mmol/[place] [address] [phone] Potassium 4.1 mmol/L 3.5-5.3 Chloride 104 mmol/L [...] 1.9-3.7 A/G Ratio 1.4 1.0-2.5 Egfr Non-Afr. Guatemalan 48 ML/MIN/1.73M2 Low > Or=60 Egfr 55 ML/MIN/1.73M2 Low > Or=60 CBC W/ Diff & PLT 11/21/2016 [facility] WBC 6.7 thous/L 3.8-10.8 [address] [place] [address] [phone] RBC 4.55 mill/L 4.20-5.80 Hemoglobin 13.9 g/dL 13.2-17.1 Hematocrit 41.4 % 38.5-50.0 MCV 91.0 FL 80.0-100.0 MCH 30.6 pg 27.0-33.0 MCHC 33.6 g/dL 32.0-36.0 RDW 14.3 % 11.0-15.0 Platelet Count 151 thous/L 140-400 Platelet Sufficiency PENDING MPV 9.7 FL 7.5-12.5 Neutrophils,Absolute 4290 cells/L [phone] Bands,Absolute PENDING Metamyelocytes,Absolute PENDING Myelocytes,Absolute PENDING Promyelocytes,Absolute [...] PENDING Basophilic Stippling PENDING Comment PENDING Laboratory 11/21/2016 [facility] Testosterone,Total,LC/MS/MS 398 250- 1100 20 test finding [address] ng/[place] [address] [phone] Vitamin D,25-Hydroxy,Total,Immunoassay 34 NG/ML 30-100 21 PSA,Total 1.6 NG/ML < Or=4.0 22 Lipid Panel 11/21/2016 [facility] Cholesterol 133 mg/dL 125-[address] [place], [place] [id number] [phone] HDL Cholesterol 43 mg/dL > Or=40 Cholesterol/HDL Ratio 3.1 < Or=5.0 LDL Chol,Calculated 65 mg/dL <130 23 Triglycerides 126 mg/dL <150 Non-HDL Cholesterol 90 mg/dL 24 Laboratory test 11/21/2016 [facility] Hemoglobin A1c 6.9 % High 0-5.6 [address] [place] [address] [phone] Laboratory test 06/19/2016 [facility] Cholesterol 142 125-[address] mg/[place] [address] [phone] Hemoglobin A1c 7.1 % High 0.0-5.6 26 Basic Metabolic Panel 06/19/2016 [facility] Sodium 142 mmol/L 135-[address] [place] [address] [phone] Potassium 4.3 mmol/L 3.5-5.3 Chloride 106 mmol/L 98-110 Carbon Dioxide 28 mmol/L 20-31 Calcium 9.4 mg/dL 8.6-10.3 Glucose 116 mg/dL High 65-99 27 Urea Nitrogen 25 mg/dL 7-25 Creatinine 1.59 mg/dL High 0.70-1.18 28 BUN/Creatinine Ratio 15.5 6-22 Egfr Non-Afr. Guatemalan 43 ML/MIN/1.73M2 Low > Or=60 Egfr 50 ML/MIN/1.73M2 Low > Or=60 Basic Metabolic Panel 02/14/2016 [facility] Sodium 141 mmol/L 135-[address] [place] [address] [phone] Potassium 4.3 mmol/L 3.5-5.3 Chloride 107 mmol/L 98-110 Carbon Dioxide 28 mmol/L 20-31 Calcium 9.4 mg/dL 8.6-10.3 Glucose 123 mg/dL High 65-99 29 Urea Nitrogen 23 mg/dL 7-25 Creatinine 1.42 mg/dL High 0.70-1.18 30 BUN/Creatinine Ratio 15.9 6-22 Egfr Non-Afr. Guatemalan 49 ML/MIN/1.73M2 Low > Or=60 Egfr 57 ML/MIN/1.73M2 Low > Or=60 Laboratory test 01/24/2016 [facility] Hemoglobin A1c 7.1 % High 0.0-5.6 [address] [place] [address] [phone] Basic Metabolic 01/24/2016 [facility] Sodium 142 135-[address] mmol/[place] [address] [phone] Potassium 4.4 mmol/L 3.5-5.3 Chloride 109 mmol/L 98-110 Carbon Dioxide 26 mmol/L 20-31 Calcium 9.3 mg/dL 8.6-10.3 Glucose 129 mg/dL High 65-99 32 Urea Nitrogen 26 mg/dL High 7-25 Creatinine 1.36 mg/dL High 0.70-1.18 33 BUN/Creatinine Ratio 19.3 6-22 Egfr Non-Afr. Guatemalan 52 ML/MIN/1.73M2 Low > Or=60 Egfr 60 ML/MIN/1.73M2 > Or=60 Laboratory 10/22/2015 [facility] Testosterone,Total,LC/MS/MS 462 250- 1100 34 test finding [address] ng/[place] [address] [phone] PSA,Total 2.1 NG/ML < Or=4.0 35 Vitamin D,25-Hydroxy,Total,Immunoassay 34 NG/ML 30-100 36 CBC W/ Diff & PLT 10/22/2015 [facility] WBC 6.2 thous/L 3.8-10.8 6 [place] [address] [phone] RBC 4.51 mill/L 4.20-5.80 Hemoglobin 13.9 g/dL 13.2-17.1 Hematocrit 42.1 % 38.5-50.0 MCV 93.4 FL 80.0-100.0 MCH 30.8 pg 27.0-33.0 MCHC 33.0 g/dL 32.0-36.0 RDW 15.8 % High 11.0-15.0 Platelet Count 167 thous/L 140-400 Platelet Sufficiency PENDING MPV 9.7 FL 7.5-11.5 Neutrophils,Absolute 3790 cells/L 9739-3412 Bands,Absolute PENDING Metamyelocytes,Absolute PENDING Myelocytes,Absolute PENDING Promyelocytes,Absolute [...] Cells PENDING Basophilic Stippling PENDING Comment PENDING TSH & T4,Free 10/22/2015 [facility] TSH 2.98 mIU/L 0.40-4.50 6 [place] [address] [phone] T4,Free 1.0 ng/dL 0.8-1.8 Lipid Panel 10/22/2015 [facility] Cholesterol 165 mg/dL 125-200 6 [place] [address] [phone] HDL Cholesterol 50 mg/dL > Or=40 Cholesterol/HDL Ratio 3.3 < Or=5.0 LDL Chol,Calculated 94 mg/dL <130 38 Triglycerides 107 mg/dL <150 Non-HDL Cholesterol 115 mg/dL 39 CMP W/O Egfr 10/22/2015 [facility] Sodium 143 mmol/L 135-[address] [place] [address] [phone] Potassium 4.2 mmol/L 3.5-5.3 Chloride 108 mmol/L 98-110 Carbon Dioxide 24 mmol/L 19-30 Calcium 9.5 mg/dL 8.6-10.3 Alkaline Phosphatase 89 U/L 40-115 Ast 29 U/L 10-35 Alt 18 U/L 9-46 Bilirubin,Total 0.8 mg/dL 0.2-1.2 Glucose 115 mg/dL High 65-99 40 Urea Nitrogen 29 mg/dL High 7-25 Creatinine 1.51 mg/dL High 0.70-1.18 41 BUN/Creatinine Ratio 19.1 6-22 Protein,Total 7.0 g/dL 6.1-8.1 Albumin 4.1 g/dL 3.6-5.1 Globulin,Calculated 2.9 g/dL 1.9-3.7 A/G Ratio 1.4 1.0-2.5 Lipid Panel 06/21/2015 [facility] Cholesterol 221 mg/dL High 125-200 [address] [facility] [place] [address] [phone] HDL Cholesterol 41 mg/dL > Or=40 Cholesterol/HDL Ratio 5.4 High < Or=5.0 LDL Chol,Calculated 143 mg/dL High <130 42 Triglycerides 185 mg/dL High <150 Non-HDL Cholesterol 180 mg/dL High 43 Lipid Panel 02/08/2015 [facility] Cholesterol 130 mg/dL 125-[address] [place] [address] [phone] HDL Cholesterol 37 mg/dL Low > Or=40 Cholesterol/HDL Ratio 3.5 < Or=5.0 LDL Chol,Calculated 64 mg/dL <130 44 Triglycerides 145 mg/dL <150 Non-HDL Cholesterol 93 mg/dL 45 CMP W/O Egfr 10/07/2014 [facility] Sodium 140 mmol/L 135-146 [address] [facility] [place] [address] [phone] Potassium 4.1 mmol/L 3.5-5.3 Chloride 105 mmol/L 98-110 Carbon Dioxide 24 mmol/L 19-30 Calcium 9.1 mg/dL 8.6-10.3 Alkaline Phosphatase 87 U/L 40-115 Ast 31 U/L 10-35 Alt 21 U/L 9-46 Bilirubin,Total 0.7 mg/dL 0.2-1.2 Glucose 134 mg/dL High 65-99 46 Urea Nitrogen 17 mg/dL 7-25 Creatinine 1.37 mg/dL High 0.70-1.18 47 BUN/Creatinine Ratio 12.0 6-22 Protein,Total 6.9 g/dL 6.1-8.1 Albumin 3.9 g/dL 3.6-5.1 Globulin,Calculated 3.0 g/dL 1.9-3.7 A/G Ratio 1.3 1.0-2.5 CBC W/ Diff & PLT 10/07/2014 [facility] WBC 6.4 thous/L 3.8-10.8 [address] [place] [address] [phone] RBC 4.62 mill/L 4.20-5.80 Hemoglobin 14.1 g/dL 13.2-17.1 Hematocrit 43.1 % 38.5-50.0 MCV 93.3 FL 80.0-100.0 MCH 30.5 pg 27.0-33.0 MCHC 32.7 g/dL 32.0-36.0 RDW 15.8 % High 11.0-15.0 Platelet Count 150 thous/L 140-400 Platelet Sufficiency PENDING MPV 10.1 FL 7.5-11.5 Neutrophils,Absolute 4140 cells/L 7946-7629 Bands,Absolute PENDING Metamyelocytes,Absolute PENDING Myelocytes,Absolute PENDING Promyelocytes,Absolute [...] [facility] Cholesterol 175 mg/dL 125-[address] [place], [place] [id number] [phone] HDL Cholesterol 43 mg/dL > Or=40 Cholesterol/HDL Ratio 4.1 < Or=5.0 LDL Chol,Calculated 97 mg/dL <130 48 Triglycerides 173 mg/dL High <150 Non-HDL Cholesterol 132 mg/dL 49 Laboratory test 10/07/2014 [facility] PSA,Total 1.4 NG/ML 0.0-4.0 [address] [place] [address] [phone] Testosterone,Total,LC/MS/MS 446 ng/dL 250-1100 51 Vitamin D,25-Hydroxy,Total,Immunoassay 22 NG/ML Low 30-100 52 Lipid Panel 06/22/2014 [facility] Cholesterol 137 mg/dL 125-200 [address] [facility] [place] [address] [phone] HDL Cholesterol 40 mg/dL > Or=40 Cholesterol/HDL Ratio 3.4 < Or=5.0 LDL Chol,Calculated 71 mg/dL <130 53 Triglycerides 129 mg/dL <150 Non-HDL Cholesterol 97 mg/dL 54 BMP W/O Egfr 06/22/2014 [facility] Sodium 140 mmol/L 135-[address] [place] [address] [phone] Potassium 4.4 mmol/L 3.5-5.3 Chloride 105 mmol/L 98-110 Carbon Dioxide 27 mmol/L 19-30 Calcium 9.0 mg/dL 8.6-10.3 Glucose 149 mg/dL High 65-99 55 Urea Nitrogen 15 mg/dL 7-25 Creatinine 1.35 mg/dL High 0.70-1.18 56 BUN/Creatinine Ratio 10.8 6-22 Comp Metabolic Panel 02/16/2014 [facility] Sodium 141 mmol/L 135-[address] [place] [address] [phone] Potassium 4.4 mmol/L 3.5-5.3 Chloride 105 mmol/L [...] 1.9-3.7 A/G Ratio 1.3 1.0-2.5 Egfr Non-Afr. Guatemalan 55 ML/MIN/1.73M2 Low > Or=60 Egfr 63 ML/MIN/1.73M2 > Or=60 Lipid Panel 02/16/2014 [facility] Cholesterol 139 mg/dL 125-[address] [place] [address] [phone] HDL Cholesterol 43 mg/dL > Or=40 Cholesterol/HDL Ratio 3.2 < Or=5.0 LDL Chol,Calculated 71 mg/dL <130 59 Triglycerides 127 mg/dL <150 Non-HDL Cholesterol 97 mg/dL 60 Lipid Panel 11/04/2013 [facility] Cholesterol 128 mg/dL 125-[address] [place] [address] [phone] HDL Cholesterol 37 mg/dL Low > Or=40 Cholesterol/HDL Ratio 3.5 < Or=5.0 LDL Chol,Calculated 62 mg/dL <130 61 Triglycerides 146 mg/dL <150 Non-HDL Cholesterol 91 mg/dL 62 BMP W/O Egfr 11/04/2013 [facility] Sodium 142 mmol/L 135-[address] [place] [address] [phone] Potassium 4.3 mmol/L 3.5-5.3 Chloride 108 mmol/L 98-110 Carbon Dioxide 23 mmol/L 19-30 Calcium 9.2 mg/dL 8.6-10.3 Glucose 109 mg/dL High 65-99 63 Urea Nitrogen 21 mg/dL 7-25 Creatinine 1.42 mg/dL High 0.70-1.25 64 BUN/Creatinine Ratio 14.4 6-22 [facility] 06/16/2013 [facility] Vitamin 30 ng/mL 30-100 25-Hydroxy D [address] D,25-Oh,Total (D2,D3) LC/[place] [address] [phone] Vitamin D,25-Oh,D3 30 ng/mL Vitamin D,25-Oh,D2 <4 ng/mL 65 Laboratory 06/16/2013 [facility] Testosterone,Total,LC/MS/MS 428 250- 1100 66 test finding [address] ng/[place] [address] [phone] PSA,Total 1.9 NG/ML 0.0-4.0 67 TSH & T4,Free 06/16/2013 [facility] TSH 2.11 mIU/L 0.40-4.[address] [place] [address] [phone] T4,Free 1.1 ng/dL 0.8-1.8 CBC W/ Diff & PLT 06/16/2013 [facility] WBC 6.8 thous/L 3.8-10.[address] [place] [address] [phone] RBC 4.98 mill/L 4.20-5.80 Hemoglobin 15.3 g/dL 13.2-17.1 Hematocrit 45.6 % 38.5-50.0 MCV 91.5 FL 80.0-100.0 MCH 30.6 pg 27.0-33.0 MCHC 33.5 g/dL 32.0-36.0 RDW 13.7 % 11.0-15.0 Platelet Count 152 thous/L 140-400 Neutrophils,Absolute 4330 cells/L 1843-8414 Lymphocytes,Absolute 1610 cells/L 850-3900 Monocytes,Absolute 550 cells/L 200-950 Eosinophils,Absolute 240 cells/L 15-500 Basophils,Absolute 60 cells/L 0-200 Total Neutrophils,% 64 % Not Established Total Lymphocytes,% 24 % Not Established Monocytes,% 8 % Not Established Eosinophils,% 4 % Not Established Basophils,% 1 % Not Established Laboratory test 06/16/2013 [facility] Hemoglobin A1c 7.2 % High 0.0-5.6 [address] [place], [place] [id number] [phone] Lipid Panel 06/16/2013 [facility] Cholesterol 146 125-[address] mg/[place] [address] [phone] HDL Cholesterol 43 mg/dL > Or=40 Cholesterol/HDL Ratio 3.4 < Or=5.0 LDL Chol,Calculated 74 mg/dL <130 69 Triglycerides 143 mg/dL <150 Non-HDL Cholesterol 104 mg/dL 70 Comp Metabolic Panel 06/16/2013 [facility] Sodium 143 mmol/L 135-[address] [place], [place] [address] [phone] Potassium 4.5 mmol/L 3.5-5.3 Chloride 107 mmol/L 98-110 Carbon Dioxide 27 mmol/L 19-30 Calcium 9.0 mg/dL 8.6-10.3 Alkaline Phosphatase 99 U/L 40-115 Ast 24 U/L 10-35 Alt 25 U/L 9-46 Bilirubin,Total 0.6 mg/dL 0.2-1.2 Glucose 115 mg/dL High 65-99 71 Urea Nitrogen 14 mg/dL 7-25 Creatinine 1.23 mg/dL 0.70-1.25 72 BUN/Creatinine Ratio 11.5 6-22 Protein,Total 6.6 g/dL 6.1-8.1 Albumin 3.9 g/dL 3.6-5.1 Globulin,Calculated 2.7 g/dL 1.9-3.7 A/G Ratio 1.4 1.0-2.5 Egfr Non-Afr. Guatemalan 60 ML/MIN/1.73M2 > Or=60 Egfr 69 ML/MIN/1.73M2 > Or=60 Laboratory test finding 12/09/2012 [facility] Direct LDL 74 mg/dL <[address] [place] [address] [phone] Glucose 113 mg/dL High 65-99 74 Laboratory test 04/25/2012 [facility] PSA,Total 2.0 NG/ML 0.0-4.0 [address] [place] [address] [phone] Testosterone,Total,LC/MS/MS 337 ng/dL 250-1100 76 Vitamin D, 25 04/25/2012 [facility] Vitamin 32 ng/mL 30-[address] D,25-Oh,[place] [address] [phone] Vitamin D,25-Oh,D3 32 ng/mL Vitamin D,25-Oh,D2 <4 ng/mL 77 Comp Metabolic Panel 04/25/2012 [facility] Sodium 143 mmol/L 135-[address] [place] [address] [phone] Potassium 4.4 mmol/L 3.5-5.3 Chloride 109 mmol/L 98-110 Carbon Dioxide 24 mmol/L 21-33 Calcium 9.1 mg/dL 8.6-10.3 Alkaline Phosphatase 90 U/L 40-115 Ast 24 U/L 10-35 Alt 22 U/L 9-60 Bilirubin,Total 0.6 mg/dL 0.2-1.2 Glucose 107 mg/dL High 65-99 78 Urea Nitrogen 21 mg/dL 7-25 Creatinine 1.29 mg/dL High 0.70-1.25 79 BUN/Creatinine Ratio 16.0 6-22 Protein,Total 7.2 g/dL 6.1-8.1 Albumin 4.2 g/dL 3.6-5.1 Globulin,Calculated 3.0 g/dL 1.9-3.7 A/G Ratio 1.4 1.0-2.5 Egfr Non-Afr. Guatemalan 57 ML/MIN/1.73M2 Low > Or=60 Egfr 66 ML/MIN/1.73M2 > Or=60 CBC W/ Diff & PLT 04/25/2012 [facility] WBC 6.8 thous/L 3.8-10.[address] [place], [place] [address] [phone] RBC 4.42 mill/L 4.20-5.80 Hemoglobin 13.7 g/dL 13.2-17.1 Hematocrit 40.5 % 38.5-50.0 MCV 91.8 FL 80.0-100.0 MCH 30.9 pg 27.0-33.0 MCHC 33.7 g/dL 32.0-36.0 RDW 14.9 % 11.0-15.0 Platelet Count 156 thous/L 140-400 Neutrophils,Absolute 4490 cells/L 5597-7672 Lymphocytes,Absolute 1580 cells/L 850-3900 Monocytes,Absolute 490 cells/L 200-950 Eosinophils,Absolute 180 cells/L 15-500 Basophils,Absolute 50 cells/L 0-200 Total Neutrophils,% 66 % 38-80 Total Lymphocytes,% 23 % 15-49 Monocytes,% 7 % 0-13 Eosinophils,% 3 % 0-8 Basophils,% 1 % 0-2 TSH & T4,Free 04/25/2012 [facility] TSH 2.31 mIU/L 0.40-4.50 [address] [place] [address] [phone] T4,Free 1.2 ng/dL 0.8-1.8 80 Laboratory 12/11/2011 [facility] LDL Cholesterol,Direct 87 mg/dL <130 81 test finding [address] [place] [address] [phone] Hepatic 06/12/2011 [facility] Alkaline Phosphatase 98 U/L 40-115 Function Panel [address] [place] [address] [phone] Ast 21 U/L 10-35 Alt 16 U/L 9-60 Bilirubin,Total 0.6 mg/dL 0.2-1.2 Bilirubin,Direct 0.1 mg/dL < Or=0.2 Protein,Total 7.1 g/dL 6.2-8.3 Albumin 4.0 g/dL 3.6-5.1 Globulin,Calculated 3.1 g/dL 2.1-3.7 A/G Ratio 1.3 1.0-2.1 Lipid Panel 06/12/2011 [facility] Cholesterol 152 mg/dL 125-200 [address] [place] [address] [phone] HDL Cholesterol 46 mg/dL > Or=40 Cholesterol/HDL Ratio 3.3 < Or=5.0 LDL Chol,Calculated 82 mg/dL <130 82 Triglycerides 120 mg/dL <150 Comp Metabolic Panel 02/09/2011 [facility] Sodium 142 mmol/L 135-146 [address] [facility] [place] [address] [phone] Potassium 3.8 mmol/L 3.5-5.3 Chloride 106 mmol/L [...] 2.1-3.7 A/G Ratio 1.3 1.0-2.1 Egfr Non-Afr. Guatemalan 60 ML/MIN/1.73M2 > Or=60 Egfr 70 ML/MIN/1.73M2 > Or=60 CBC W/ Diff & PLT 02/09/2011 [facility] WBC 6.7 thous/L 3.8-10.8 [address] [place] [address] [phone] RBC 4.53 mill/L 4.20-5.80 Hemoglobin 14.4 g/dL 13.2-17.1 Hematocrit 42.8 % 38.5-50.0 MCV 94.6 FL 80.0-100.0 MCH 31.8 pg 27.0-33.0 MCHC 33.6 g/dL 32.0-36.0 RDW 14.6 % 11.0-15.0 Platelet Count 168 thous/L 140-400 Neutrophils,Absolute 4340 cells/L 9913-4937 Lymphocytes,Absolute 1390 cells/L 850-3900 Monocytes,Absolute 600 cells/L 200-950 Eosinophils,Absolute 260 cells/L 15-500 Basophils,Absolute 60 cells/L 0-200 Total Neutrophils,% 65 % 38-80 Total Lymphocytes,% 21 % 15-49 Monocytes,% 9 % 0-13 Eosinophils,% 4 % 0-8 Basophils,% 1 % 0-2 Laboratory 02/09/2011 [facility] LDL Cholesterol,Direct 90 mg/dL <130 84 test finding [address] [place] [address] [phone] Hepatic 02/09/2011 [facility] Alkaline Phosphatase 101 U/L 40-115 Function Panel [address] [place] [address] [phone] Ast 26 U/L 10-35 Alt 25 U/L 9-60 Bilirubin,Total 0.7 mg/dL 0.2-1.2 Bilirubin,Direct 0.2 mg/dL < Or=0.2 Protein,Total 7.0 g/dL 6.2-8.3 Albumin 4.0 g/dL 3.6-5.1 Globulin,Calculated 3.0 g/dL 2.1-3.7 A/G Ratio 1.3 1.0-2.1 TSH & T4,Free 02/09/2011 [facility] TSH,3RD 1.80 mIU/L 0.40-4.[address] [place] [address] [phone] T4,Free 1.2 ng/dL 0.8-1.8 Laboratory 02/09/2011 [facility] Testosterone,Total,Males [phone] 85 test finding [address] ng/[place] [address] [phone] Vitamin D, 02/09/2011 [facility] Vitamin D,25-Oh,Total 28 Low 30-[address] ng/[place] [address] [phone] Vitamin D,25-Oh,D3 28 ng/mL Vitamin D,25-Oh,D2 <4 ng/mL 86 Laboratory test 10/13/2010 [facility] LDL Cholesterol,Direct 79 mg/dL < 130 [address] [place] [address] [phone] HDL Cholesterol 41 mg/dL > Or=40 Cholesterol 141 mg/dL 125-200 Triglycerides 139 mg/dL <150 Comp Metabolic Panel 10/13/2010 [facility] Sodium 140 mmol/L 135-[address] [place] [address] [phone] Potassium 4.6 mmol/L 3.5-5.3 Chloride 104 mmol/L [...] 2.1-3.7 A/G Ratio 1.4 1.0-2.1 Egfr Non-Afr. [place] 56 ML/MIN/1.73M2 Low > Or=60 Egfr 65 ML/MIN/1.73M2 > Or=60 Hepatic Function 10/13/2010 [facility] Alkaline 100 U/L 40-[address] [place] [address] [phone] Ast 25 U/L 10-35 Alt 27 U/L 9-60 Bilirubin,Total 0.5 mg/dL 0.2-1.2 Bilirubin,Direct 0.1 mg/dL < Or=0.2 Protein,Total 7.1 g/dL 6.2-8.3 Albumin 4.2 g/dL 3.6-5.1 Globulin,Calculated 2.9 g/dL 2.1-3.7 A/G Ratio 1.4 1.0-2.1 Basic Metabolic Panel 08/08/2010 [facility] Sodium 146 mmol/L 135-[address] [place] [address] [phone] Potassium 4.3 mmol/L 3.5-5.3 Chloride 109 mmol/L 98-110 Carbon Dioxide 28 mmol/L 21-33 Calcium 9.6 mg/dL 8.6-10.2 Glucose 106 mg/dL High 65-99 89 Urea Nitrogen 18 mg/dL 7-25 Creatinine 1.29 mg/dL 0.76-1.46 BUN/Creatinine Ratio 13.6 6-22 Egfr Non-Afr. [place] 57 ML/MIN/1.73M2 Low > Or=60 Egfr 67 ML/MIN/1.73M2 > Or=60 Hepatic Function 06/14/2010 [facility] Alkaline 111 U/L 40-[address] [place] [address] [phone] Ast 34 U/L 10-35 Alt 41 U/L 9-60 Bilirubin,Total 0.5 mg/dL 0.2-1.2 Bilirubin,Direct 0.0 mg/dL < Or=0.2 Protein,Total 7.1 g/dL 6.2-8.3 Albumin 4.0 g/dL 3.6-5.1 Globulin,Calculated 3.1 g/dL 2.1-3.7 A/G Ratio 1.3 1.0-2.1 Lipid Panel 02/21/2010 [facility] Cholesterol 148 mg/dL 125-[address] [place] [address] [phone] HDL Cholesterol 45 mg/dL > Or=40 Triglycerides 88 mg/dL <150 Cholesterol/HDL Ratio 3.3 < Or=5.0 LDL Chol,Calculated 85 mg/dL <130 90 Laboratory test 02/21/2010 [facility] PSA,Total 2.3 NG/ML 0.0-4.0 [address] [place] [address] [phone] CBC W/ Diff & PLT 02/21/2010 [facility] WBC 5.9 thous/L 3.8-10.[address] [place] [address] [phone] RBC 4.38 mill/L 4.20-5.80 Hemoglobin 14.3 g/dL 13.2-17.1 Hematocrit 41.1 % 38.5-50.0 MCV 94.0 FL 80.0-100.0 MCH 32.6 pg 27.0-33.0 MCHC 34.7 g/dL 32.0-36.0 RDW 14.5 % 11.0-15.0 Platelet Count 181 thous/L 140-400 Platelet Sufficiency NORMAL Normal Neutrophils,Absolute 3820 cells/L 4068-7208 Bands,Absolute DNR cells/L 0-750 Metamyelocytes,Absolute DNR cells/L [...] [facility] Sodium 140 mmol/L 135-146 [address], [place] [address] [phone] Potassium 4.8 mmol/L 3.5-5.3 Chloride 104 mmol/L 98-110 Carbon Dioxide 29 mmol/L 21-33 Calcium 9.4 mg/dL 8.6-10.2 Alkaline Phosphatase 119 U/L High 40-115 Ast 27 U/L 10-35 Alt 27 U/L 9-60 Bilirubin,Total 0.5 mg/dL 0.2-1.2 Glucose 99 mg/dL 65-99 92 Urea Nitrogen 18 mg/dL 7-25 Creatinine 1.44 mg/dL 0.76-1.46 BUN/Creatinine Ratio 12.6 6-22 Protein,Total 7.0 g/dL 6.2-8.3 Albumin 4.1 g/dL 3.6-5.1 Globulin,Calculated 2.9 g/dL 2.1-3.7 A/G Ratio 1.4 1.0-2.1 Egfr Non-Afr. Guatemalan 49 ML/MIN/1.73M2 Low > Or=60 Egfr 60 ML/MIN/1.73M2 > Or=60 Lipid Panel 10/04/2009 [facility] Cholesterol 147 mg/dL 125-[address] [place] [address] [phone] HDL Cholesterol 55 mg/dL > Or=40 Triglycerides 72 mg/dL <150 Cholesterol/HDL Ratio 2.7 < Or=5.0 LDL Chol,Calculated 78 mg/dL <130 93 Hepatic Function 10/04/2009 [facility] Alkaline 105 U/L 40-[address] [place] [place] [address] [phone] Ast 32 U/L 10-35 Alt 25 U/L 9-60 Bilirubin,Total 0.4 mg/dL 0.2-1.2 Bilirubin,Direct 0.1 mg/dL < Or=0.2 Protein,Total 6.8 g/dL 6.2-8.3 Albumin 4.1 g/dL 3.6-5.1 Globulin,Calculated 2.7 g/dL 2.1-3.7 A/G Ratio 1.5 1.0-2.1 Hepatic 05/31/2009 [facility] Alkaline 124 U/L High 40-115 Function Panel [address] [place] [place] [address] [phone] Ast 29 U/L 10-35 Alt 30 U/L 9-60 Bilirubin,Total 0.6 mg/dL 0.2-1.2 Bilirubin,Direct 0.1 mg/dL < Or=0.2 Protein,Total 7.3 g/dL 6.2-8.3 Albumin 4.2 g/dL 3.6-5.1 Globulin,Calculated 3.1 g/dL 2.1-3.7 A/G Ratio 1.4 1.0-2.1 Lipid Panel 05/31/2009 [facility] Cholesterol 157 mg/dL 125-[address] [place] [address] [phone] HDL Cholesterol 49 mg/dL > Or=40 Triglycerides 97 mg/dL <150 Cholesterol/HDL Ratio 3.2 < Or=5.0 LDL Chol,Calculated 89 mg/dL <130 94 Liver Function 02/22/2009 [facility] Total Protein 7.1 g/dL 6.3-8.[address] [place] [address] [phone] Albumin 3.7 g/dL 3.5-5.0 Bilirubin,Total 0.6 mg/dL 0.2-1.2 Bilirubin,Direct 0.1 mg/dL 0.1-0.4 Bilirubin,Indirect 0.5 mg/dL 0.0-0.9 Sgot/Ast 35 U/L 16-40 SGPT/Alt 48 U/L 30-65 Alkaline Phosphatase 122 U/L 50-136 Globulin 3.4 gm/dL 1.9-4.3 Alb/Glob 1.1 LDL Cholesterol 02/22/2009 [facility] Cholesterol 154 mg/dL 120-[address] [place] [address] [phone] Triglycerides 113 mg/dL 0-210 HDL Cholesterol 45 mg/dL 32-96 LDL-Cholesterol 86 mg/dL 62-185 CBC W/Automated 10/29/2008 [facility] White Blood 7.0 K/uL 3.4-10.[address] [place] [address] [phone] Red Blood Count 4.97 M/uL 4.20-5.80 Hemoglobin 15.4 gm/dL 12.8-17.0 Hematocrit 46.3 % 38.0-48.0 Mean Cell Volume 93.2 fl 80.0-96.0 Mean Corpuscular HGB 31.0 pg 27.0-33.0 Mean Corpuscular HGB Conc 33.3 g/dL 31.7-36.0 Platelet Count 188 K/uL 150-400 Red Cell Distri Width %CV 13.2 % 11.6-15.8 Mean Platelet Volume 11.3 fL High 6.6-10.6 Neut% 70.4 % 33.0-73.0 Lymph % 17.7 % 17.0-56.0 Rabun % 9.6 % 0.0-10.0 Eo% 2.0 % 0.0-5.0 Bas% 0.3 % 0.1-1.0 Neut# 4.9 K/uL 1.8-7.0 Lymph # 1.2 K/uL 1.2-4.0 Rabun # 0.7 K/uL High 0.0-0.6 Eos # 0.1 K/uL 0.0-0.5 Baso # 0.0 K/uL Low 0.1-0.2 Red Cell Distri Width SD 44 fl 36-51 Laboratory test 10/29/2008 [facility] Prostate 2.4 ng /mL 0-4.0 [address] Specific Antigen [place], [place] [id number] [phone] LDL Cholesterol 10/29/2008 [facility] Cholesterol 168 mg/dL 120-[address] [place] [address] [phone] Triglycerides 85 mg/dL 0-210 HDL Cholesterol 51 mg/dL 32-96 LDL-Cholesterol 100 mg/dL 62-185 Liver Function 10/29/2008 [facility] Total Protein 7.8 g/dL 6.3-8.[address] [place] [address] [phone] Albumin 4.1 g/dL 3.5-5.0 Bilirubin,Total 0.7 mg/dL 0.2-1.2 Bilirubin,Direct 0.1 mg/dL 0.1-0.4 Bilirubin,Indirect 0.6 mg/dL 0.0-0.9 Sgot/Ast 31 U/L 16-40 SGPT/Alt 45 U/L 30-65 Alkaline Phosphatase 123 U/L 50-136 Globulin 3.7 gm/dL 1.9-4.3 Alb/Glob 1.1 TSH+Free T4 10/29/2008 [facility] Thyroid Stim 1.89 uIU/mL 0.49-4.67 ([place] & [address] Hormone [facility] [place]) [place], [place] [id number] [phone] Free T4 0.95 ng/dL 0.71-1.85 Comprehensive 10/29/2008 [facility] Glucose 104 mg/ dL 76-115 Metabolic Panel [address] [place] [address] [phone] BUN 18 mg/dL 5-23 Creatinine 1.3 mg/dL 0.5-1.4 Glom Filtration Rate, Estimate 59 mL/min >60 If >60 mL/min >60 96 BUN/Creat 13.8 Sodium 143 mEq/L 136-145 Potassium 4.3 mEq/L 3.5-5.1 Chloride 109 mEq/L High 98-107 Carbon Dioxide 28 mEq/L 21-32 Anion Gap 10 mEq/L 8-16 Calcium 9.8 mg/dL 8.5-10.1 Total Protein 7.8 g/dL 6.3-8.0 Albumin 4.1 g/dL 3.5-5.0 Globulin 3.7 gm/dL 1.9-4.3 Alb/Glob 1.1 Bilirubin,Total 0.7 mg/dL 0.2-1.2 Sgot/Ast 31 U/L 16-40 SGPT/Alt 45 U/L 30-65 Alkaline Phosphatase 123 U/L 50-136 LDL Cholesterol 07/07/2008 [facility] Cholesterol 173 mg/dL 120-200 Profile [address] [facility] [place] [address] [phone] Triglycerides 124 mg/dL 0-210 HDL Cholesterol 47 mg/dL 32-96 LDL-Cholesterol 101 mg/dL 62-185 Liver Function 07/07/2008 [facility] Total Protein 7.4 g/dL 6.3-8.[address] [place] [address] [phone] Albumin 3.8 g/dL 3.5-5.0 Bilirubin,Total 0.7 mg/dL 0.2-1.2 Bilirubin,Direct 0.1 mg/dL 0.1-0.4 Bilirubin,Indirect 0.6 mg/dL 0.0-0.9 Sgot/Ast 31 U/L 16-40 SGPT/Alt 49 U/L 30-65 Alkaline Phosphatase 127 U/L 50-136 Globulin 3.6 gm/dL 1.9-4.3 Alb/Glob 1.1 Lipid Panel 03/03/2008 [facility] Cholesterol 158 mg/dL 125-200 [address] [facility] [place] [address] [phone] HDL Cholesterol 44 mg/dL > Or=40 Cholesterol/HDL Ratio 3.6 < Or=5.0 LDL Chol,Calculated 86 mg/dL <130 97 Triglycerides 138 mg/dL <150 Hepatic Function 03/03/2008 [facility] Alkaline Phosphatase 98 U/L 40- [address] [place] [address] [phone] Ast 27 U/L 10-35 Alt 26 U/L 9-60 Bilirubin,Total 0.4 mg/dL 0.2-1.2 Bilirubin,Direct 0.1 mg/dL < Or=0.2 Protein,Total 6.7 g/dL 6.2-8.3 Albumin 3.9 g/dL 3.6-5.1 Globulin,Calculated 2.8 g/dL 2.1-3.7 A/G Ratio 1.4 1.0-2.1 Comp Metabolic Panel 11/11/2007 [facility] Sodium 137 mmol/L 203-106 [address] [place] [address] [phone] Potassium 4.2 mmol/L 3.5-5.0 Chloride 108 mmol/L 101-111 Co2 (Carbon Dioxide) 29.0 mmol/L 22-32 Anion Gap 0 mmol/L Low 2-11 98 Glucose 107 mg/dL High 70-105 BUN 18 mg/dL 6-24 Creatinine 1.3 mg/dL 0.5-1.4 One Over Creatinine 0.76 BUN/Creatinine Ratio 13.8 8-20 Calcium 8.8 mg/dL 8.1-9.9 99 Total Protein 7.0 GM/DL 6.2-8.1 Albumin 3.6 GM/DL 3.2-5.2 Globulin 3.4 GM/DL 2-4 Albumin/Globulin Ratio 1.1 1-3 Bilirubin Total 0.6 mg/dL 0.4-1.5 Alkaline Phosphatase 92 U/L 39-117 Alt (SGPT) 23 U/L 17-63 Ast (Sgot) 30 U/L 12-42 Lipid Profile 11/11/2007 [facility] Triglyceride 59 mg/dL 40- 200 (Trig/Chol/HDL) [address] [place] [address] [phone] Cholesterol 152 mg/dL Less Than 200 100 High Density Lipoprotein 44 mg/dL 40-60 101 Cholesterol/HDL Ratio 3.45 AVERAGE 1-4.97 Low Density Lipoprotein 96 mg/dL Less Than 100 102 Liver Function 11/11/2007 [facility] Bilirubin Direct 0.2 mg/dL 0.1-0.5 Panel [address] [place] [address] [phone] Indirect Bilirubin 0.4 mg/dL 0.1-0.75 CBC With 11/11/2007 [facility] White Blood 6.2 CUMM 4.8-10.8 Electronic Diff [address] [place] [address] [phone] Red Cell Count 4.64 CUMM 4.6-6.2 Hemoglobin [...] Eosinophils 0.1 0-0.6 Abs Basophils 0 0-0.2 103 Laboratory test 11/11/2007 [facility] PSA Screening 3.20 NG/ML 0-4 [address] [place] [address] [phone] Comp Metabolic 11/15/2006 [facility] Sodium 140 mmol/L 135-[address] [place] [address] [phone] Potassium 4.2 mmol/L 3.5-5.3 Chloride 106 mmol/L 98-110 Carbon Dioxide 26 mmol/L 21-33 Calcium 9.4 mg/dL 8.6-10.2 Alkaline Phosphatase 96 U/L 40-115 Ast 25 U/L 10-35 Alt 18 U/L 9-60 Bilirubin,Total 0.6 mg/dL 0.2-1.2 Glucose 103 mg/dL High 65-99 105 Urea Nitrogen 17 mg/dL 7-25 Creatinine 1.2 mg/dL 0.5-1.3 BUN/Creatinine Ratio 14.2 6-22 Protein,Total 7.3 g/dL 6.2-8.3 Albumin 4.1 g/dL 3.6-5.1 Globulin,Calculated 3.2 g/dL 2.1-3.7 A/G Ratio 1.3 1.0-2.1 GFR Estimated >60 ML/MIN/1.7 >59 106 CBC W/ Diff & PLT 11/15/2006 [facility] WBC 6.5 thous/L 3.8-10.8 [address] [place] [address] [phone] RBC 4.62 mill/L 4.20-5.80 Hemoglobin 14.8 g/dL 13.2-17.1 Hematocrit 42.8 % 38.5-50.0 MCV 92.7 FL 80.0-100.0 MCH 32.0 pg 27.0-33.0 MCHC 34.6 g/dL 32.0-36.0 RDW 14.2 % 11.0-15.0 Platelet Count 185 thous/L 140-400 Platelet Sufficiency NORMAL Normal Neutrophils,Absolute 4490 cells/L 0867-2218 Bands,Absolute DNR cells/L 0-750 Metamyelocytes,Absolute DNR cells/L [...] Cells DNR Basophilic Stippling DNR Comment DNR Lipid Panel 11/15/2006 [facility] Cholesterol 159 mg/dL 125-200 [address] [place] [address] [phone] HDL Cholesterol 44 mg/dL > Or=40 107 Cholesterol/HDL Ratio 3.6 < Or=5.0 LDL Chol,Calculated 85 mg/dL <130 108 Triglycerides 148 mg/dL <150 Laboratory test finding 11/15/2006 [facility] TSH 2.03 mU/L 0.40-5.[address] [place] [address] [phone] T4,Free 1.1 ng/dL 0.8-1.8 Laboratory test 07/17/2006 [facility] PSA,Total 1.7 NG/ML 0.0-4.0 [address] [place] [address] [phone] Hepatic 07/17/2006 [facility] Alkaline 105 U/L 40-115 Function Panel [address] [place] [place] [address] [phone] Ast 28 U/L 10-35 Alt 23 U/L 9-60 Bilirubin,Total 0.6 mg/dL 0.2-1.2 Bilirubin,Direct 0.1 mg/dL < Or=0.2 Protein,Total 7.3 g/dL 6.2-8.3 Albumin 4.1 g/dL 3.6-5.1 Lipid Panel 07/17/2006 [facility] Cholesterol 165 mg/dL 125-[address] [place] [address] [phone] HDL Cholesterol 46 mg/dL > Or=40 110 Cholesterol/HDL Ratio 3.6 < Or=5.0 LDL Chol,Calculated 96 mg/dL <130 111 Triglycerides 116 mg/dL <150 Basic Metabolic Panel 01/12/2006 [facility] Sodium 140 mmol/L 135-[address] [place] [address] [phone] Potassium 4.2 mmol/L 3.5-5.3 Chloride 104 mmol/L 98-110 Carbon Dioxide 28 mmol/L 21-33 Calcium 9.4 mg/dL 8.5-10.4 Glucose 84 mg/dL 65-99 112 Urea Nitrogen 15 mg/dL 7-25 Creatinine 1.3 mg/dL 0.5-1.4 BUN/Creatinine Ratio 11.8 6-25 GFR Estimated 60 ML/MIN/1.7 >59 113 Hepatic Function 01/12/2006 [facility] Alkaline 111 U/L 20-[address] [place] [place] [address] [phone] Ast 35 U/L 3-50 Alt 39 U/L 3-60 Bilirubin,Total 0.6 mg/dL 0.2-1.5 Bilirubin,Direct 0.1 mg/dL 0.0-0.3 Protein,Total 7.3 g/dL 6.0-8.3 Albumin 4.2 g/dL 3.2-4.6 Lipid Panel 01/12/2006 [facility] Cholesterol 165 mg/dL <[address] [place] [address] [phone] HDL Cholesterol 49 mg/dL >40 114 Cholesterol/HDL Ratio 3.4 <5.0 LDL Chol,Calculated 98 mg/dL <130 115 Triglycerides 91 mg/dL <150 Basic Metabolic Panel 08/22/2005 [facility] One Over Creatinine 0.76 [address] [place] [address] [phone] Anion Gap 7.0 mmol/L 2-11 116 BUN 16 mg/dL 6-24 Calcium 8.9 mg/dL 8.7-10.2 Chloride 102 mmol/L 101-111 Co2 (Carbon Dioxide) 27.0 mmol/L 22-32 Glucose 89 mg/dL 70-105 Potassium 3.7 mmol/L 3.5-5.0 Sodium 136 mmol/L 135-145 BUN/Creatinine Ratio 12.3 8-20 Creatinine 1.3 mg/dL 0.5-1.4 Liver Function 08/22/2005 [facility] Albumin/Globulin Ratio 1.3 1-3 Panel [address] [place] [address] [phone] Albumin 3.8 GM/DL 3.2-5.2 Alkaline Phosphatase 92 U/L 39-117 Alt (SGPT) 46 U/L 17-63 Ast (Sgot) 37 U/L 12-42 Bilirubin Direct < 0.1 mg/dL Low 0.1-0.5 Globulin 2.9 GM/DL 2-4 Bilirubin Total 0.7 mg/dL 0.4-1.5 Total Protein 6.7 GM/DL 6.2-8.1 Lipid Profile 08/22/2005 [facility] Cholesterol/HDL 5.10 High 1 -4.97 (Trig/Chol/HDL) [address] [place] [address] [phone] Cholesterol 204 mg/dL High Less Than 200 117 Triglyceride 165 mg/dL 40-200 High Density Lipoprotein 40 mg/dL 40-60 Low Density Lipoprotein 131 mg/dL High Less Than 100 118 Test Cancellation 05/11/2005 [facility] User GONZALEZ [address] [place] [address] [phone] Date & Time 05/11/2005-11:25 Additional Comments DNR 1 LDL-C is now calculated using the Nohelia calculation, which is a validated novel method providing better accuracy than the Friedewald equation in the estimation of LDL-C. Toni DE OLIVEIRA et al.ARIEL.2013;310(19):4379-1443 Desirable range <100 mg/dL for primary prevention; <70 mg/dL for patients with CHD or diabetic patients with >or=2 CHD risk factors. For additional information, please refer to http://education.[facility]/faq/KSP947(This link is being provided for informational/educational purposes only.) 2 For patients with diabetes plus 1 major ASCVD risk factor, treating to a non-HDL-C goal of <100 mg/dL (LDL-C of <70 mg/ dL) is considered a therapeutic option. 3 GLUCOSE REFERENCE RANGE BASED ON FASTING SPECIMEN. 4 The upper reference limit for Creatinine is approximately 13% higher for people identified as -Guatemalan. 5 For someone without known diabetes, a hemoglobin [...] < 8.0 ACHIEVES LESS STRINGENT GLYCEMIC GOAL 6 FASTING 7 GLUCOSE REFERENCE RANGE BASED ON FASTING SPECIMEN. 8 The upper reference limit for Creatinine is approximately 13% higher for people identified as -Guatemalan. 9 LDL-C is now calculated using the Toni-Robledo calculation, which is a validated novel method providing better accuracy than the Friedewald equation in the estimation of LDL-C. Toni SS et al.ARIEL.2013;310(19):0670-4943 (http://education.[employer]/faq/ZCV071) Desirable range <100 mg/dL for patients with CHD or Diabetes and <70 mg/dL for Diabetic patients with known heart disease 10 For patients with diabetes plus 1 major ASCVD risk factor, treating to a non-HDL-C goal of <100 mg/dL (LDL-C of <70 mg/ dL) is considered a therapeutic option. 11 For someone without known diabetes, a hemoglobin [...] < 8.0 ACHIEVES LESS STRINGENT GLYCEMIC GOAL 12 LDL-C is now calculated using the Toni-Robledo calculation, which is a validated novel method providing better accuracy than the Friedewald equation in the estimation of LDL-C. Toni SS et al.ARIEL.2013;310(19):3013-3995 (http://education.[employer]/faq/NYU649) Desirable range <100 mg/dL for patients with CHD or Diabetes and <70 mg/dL for Diabetic patients with known heart disease 13 For patients with diabetes plus 1 major ASCVD risk factor, treating to a non-HDL-C goal of <100 mg/dL (LDL-C of <70 mg/ dL) is considered a therapeutic option. 14 GLUCOSE REFERENCE RANGE BASED ON FASTING SPECIMEN. 15 The upper reference limit for Creatinine is approximately 13% higher for people identified as -Guatemalan. 16 For someone without known diabetes, a hemoglobin [...] < 8.0 ACHIEVES LESS STRINGENT GLYCEMIC GOAL 17 GLUCOSE REFERENCE RANGE BASED ON FASTING SPECIMEN. 18 The upper reference limit for Creatinine is approximately 13% higher for people identified as -Guatemalan. 19 Relative blood cell counts (%) should [...] Intervals, 7th Ed, [employer], 2011. 20 Men with clinically significant hypogonadal symptoms and testosterone values repeatedly in the range of the 200-300 ng/dL or less, may benefit from testosterone treatment after adequate risk and benefits counseling. For more information on this test, go to http://education.[employer]/faq/ TotalTestosteroneLCMSMS This test was developed and its analytical performance characteristics have been determined by [employer] [place], [place]. It has not been cleared or approved by the U.S. Food and Drug Administration. This assay has been validated pursuant to the CLIA regulations and is used for clinical purposes. 21 Vitamin D Status 25-OH Vitamin D: Deficiency: <20 ng/mL Insufficiency: 20-29 ng/mL Optimal: > or=30 ng/mL For 25-OH Vitamin D testing on patients on D2-supplementation and patients for whom quantitation of D2 and D3 fractions is required, the [facility] 25-OH Vit D, (D2,D3),LC/MS/MS is recommended: Order code 84950 (patients >2 yrs). 22 The total PSA value from this assay system is standardized against the WHO standard. The test result will be approximately 20% lower when compared to the equimolar-standardized total PSA (Siria Mckenney). Comparison of serial PSA results should be interpreted with this fact in mind. This test was performed using the Siemens chemiluminescent method. Values obtained from different assay methods be used interchangeably. PSA levels, regardless of value, should not be interpreted as absolute evidence of the presence or absence of disease. 23 LDL-CHOLESTEROL RISK CATEGORY* GOAL VERY HIGH (E.G. DIABETES + CVD) <70 MG/DL HIGH (DIABETICS; CHD RISK EQUIVALENTS) <100 MG/DL MODERATELY HIGH (MULTIPLE(2+) RISK FACTORS) <130 MG/DL 0 TO 1 RISK FACTORS <160 MG/DL * NCEP REPORT. CIRCULATION 2004; 110: 227-239 24 Target for non-HDL cholesterol is 30 mg/dL higher than LDL cholesterol target. 25 For someone without known diabetes, a hemoglobin [...] < 8.0 ACHIEVES LESS STRINGENT GLYCEMIC GOAL 26 According to ADA guidelines, hemoglobin A1c <7.0% [...] A1C for diagnosis of diabetes in children. 27 GLUCOSE REFERENCE RANGE BASED ON FASTING SPECIMEN. 28 The upper reference limit for Creatinine is approximately 13% higher for people identified as -Guatemalan. 29 GLUCOSE REFERENCE RANGE BASED ON FASTING SPECIMEN. 30 The upper reference limit for Creatinine is approximately 13% higher for people identified as -Guatemalan. 31 According to ADA guidelines, hemoglobin A1c [...] approximately 13% higher for people identified as -Guatemalan. 34 Men with clinically significant hypogonadal symptoms and testosterone values repeatedly in the range of the 200-300 ng/dL or less, may benefit from testosterone treatment after adequate risk and benefits counseling. For more information on this test, go to http://education.[employer]/faq/ TotalTestosteroneLCMSMS 35 THIS TEST WAS PERFORMED USING [...] Vit D, (D2,D3),LC/MS/MS is recommended: Order code 14004 (patients >2 yrs). 37 Relative blood cell [...] Intervals, 7th Ed, [employer], 2011. 38 LDL-CHOLESTEROL RISK CATEGORY* GOAL VERY HIGH (E.G. DIABETES + CVD) <70 MG/DL HIGH (DIABETICS; CHD RISK EQUIVALENTS) <100 MG/DL MODERATELY HIGH (MULTIPLE(2+) RISK FACTORS) <130 MG/DL 0 TO 1 RISK FACTORS <160 MG/DL * NCEP REPORT. CIRCULATION 2004; 110: 227-239 39 Target for non-HDL cholesterol is 30 mg/dL higher than LDL cholesterol target. 40 GLUCOSE REFERENCE RANGE BASED ON FASTING SPECIMEN. 41 The upper reference limit for Creatinine is approximately 13% higher for people identified as -Guatemalan. 42 LDL-CHOLESTEROL RISK CATEGORY* GOAL VERY HIGH [...] mg/dL higher than LDL cholesterol target. 46 GLUCOSE REFERENCE RANGE BASED ON FASTING SPECIMEN. 47 The upper reference limit for Creatinine is approximately 13% higher for people identified as -Guatemalan. 48 LDL-CHOLESTEROL RISK CATEGORY* GOAL VERY HIGH (E.G. DIABETES + CVD) <70 MG/DL HIGH (DIABETICS; CHD RISK EQUIVALENTS) <100 MG/DL MODERATELY HIGH (MULTIPLE(2+) RISK FACTORS) <130 MG/DL 0 TO 1 RISK FACTORS <160 MG/DL * NCEP REPORT. CIRCULATION 2004; 110: 227-239 49 Target for non-HDL cholesterol is 30 mg/dL higher than LDL cholesterol target. 50 THIS TEST WAS PERFORMED USING THE SIEMENS CHEMILUMINESCENT METHOD. VALUES OBTAINED FROM DIFFERENT ASSAY METHODS CANNOT BE USED INTERCHANGEABLY. PSA LEVELS, REGARDLESS OF VALUE, SHOULD NOT BE INTERPRETED ABSOLUTE EVIDENCE OF THE PRESENCE OR ABSENCE OF DISEASE. 51 Men with clinically significant hypogonadal symptoms and testosterone values repeatedly in the range of the 200-300 ng/dL or less, may benefit from testosterone treatment after adequate risk and benefits counseling. For more information on this test, go to http://education.[employer]/faq/ TotalTestosteroneLCMSMS 52 Vitamin D Status 25-OH Vitamin D: Deficiency: <20 ng/mL Insufficiency: 20-29 ng/mL Optimal: > or=30 ng/mL For 25-OH Vitamin D testing on patients on D2-supplementation and patients for whom quantitation of D2 and D3 fractions is required, the [facility] 25-OH Vit D, (D2,D3),LC/MS/MS is recommended: Order code 99099 (patients >2 yrs). 53 LDL-CHOLESTEROL RISK CATEGORY* GOAL VERY HIGH (E.G. DIABETES + CVD) <70 MG/DL HIGH (DIABETICS; CHD RISK EQUIVALENTS) <100 MG/DL MODERATELY HIGH (MULTIPLE(2+) RISK FACTORS) <130 MG/DL 0 TO 1 RISK FACTORS <160 MG/DL * NCEP REPORT. CIRCULATION 2004; 110: 227-239 54 Target for non-HDL cholesterol is 30 mg/dL higher than LDL cholesterol target. 55 GLUCOSE REFERENCE RANGE BASED ON FASTING SPECIMEN. 56 The upper reference limit for Creatinine is approximately 13% higher for people identified as -Guatemalan. 57 GLUCOSE REFERENCE RANGE BASED ON FASTING SPECIMEN. 58 The upper reference limit for Creatinine is approximately 13% higher for people identified as -Guatemalan. 59 LDL-CHOLESTEROL RISK CATEGORY* GOAL VERY HIGH [...] approximately 13% higher for people identified as -Guatemalan. 65 25-OHD3 indicates both endogenous production and supplementation. 25-OHD2 is an indicator of exogenous sources such as diet or supplementation. Therapy is based on measurement of Total 25-OHD, with levels <20 ng/mL indicative of Vitamin D deficiency while levels between 20 ng/mL and 30 ng/mL suggest insufficiency. Optimal levels are > or=30ng/mL. For more information on this test, go to http://education.[employer]/faq/25-OHVitaminD 66 Men with clinically significant hypogonadal symptoms and testosterone values repeatedly in the range of the 200-300 ng/dL or less, may benefit from testosterone treatment after adequate risk and benefits counseling. For more information on this test, go to http://education.[employer]/faq/ TotalTestosteroneLCMSMS 67 THIS TEST WAS PERFORMED USING THE SIEMENS CHEMILUMINESCENT METHOD. VALUES OBTAINED FROM DIFFERENT ASSAY METHODS CANNOT BE USED INTERCHANGEABLY. PSA LEVELS, REGARDLESS OF VALUE, SHOULD NOT BE INTERPRETED ABSOLUTE EVIDENCE OF THE PRESENCE OR ABSENCE OF DISEASE. 68 According to ADA guidelines, hemoglobin A1c <7.0% [...] A1C for diagnosis of diabetes in children. 69 LDL-CHOLESTEROL RISK CATEGORY* GOAL VERY HIGH (E.G. DIABETES + CVD) <70 MG/DL HIGH (DIABETICS; CHD RISK EQUIVALENTS) <100 MG/DL MODERATELY HIGH (MULTIPLE(2+) RISK FACTORS) <130 MG/DL 0 TO 1 RISK FACTORS <160 MG/DL * NCEP REPORT. CIRCULATION 2004; 110: 227-239 70 Target for non-HDL cholesterol is 30 mg/dL higher than LDL cholesterol target. 71 GLUCOSE REFERENCE RANGE BASED ON FASTING SPECIMEN. 72 The upper reference limit for Creatinine is approximately 13% higher for people identified as -Guatemalan. 73 LDL-CHOLESTEROL RISK CATEGORY* GOAL VERY HIGH (E.G. DIABETES + CVD) <70 MG/DL HIGH (DIABETICS; CHD RISK EQUIVALENTS) <100 MG/DL MODERATELY HIGH (MULTIPLE(2+) RISK FACTORS) <130 MG/DL 0 TO 1 RISK FACTORS <160 MG/DL * NCEP REPORT. CIRCULATION 2004; 110: 227-239 74 GLUCOSE REFERENCE RANGE BASED ON FASTING SPECIMEN. 75 THIS TEST WAS PERFORMED USING THE SIEMENS CHEMILUMINESCENT METHOD. VALUES OBTAINED FROM DIFFERENT ASSAY METHODS CANNOT BE USED INTERCHANGEABLY. PSA LEVELS, REGARDLESS OF VALUE, SHOULD NOT BE INTERPRETED ABSOLUTE EVIDENCE OF THE PRESENCE OR ABSENCE OF DISEASE. 76 Aging men with clinically significant hypogonadal symptoms and testosterone values repeatedly in the range of the 200-300 ng/dL or less, may benefit from testosterone treatment after adequate risk and benefits counseling. For more information on this test, go to [email or web address]/ [email or web address] 77 25-OHD3 indicates both endogenous production and supplementation. 25-OHD2 is an indicator of exogenous sources such as diet or supplementation. Therapy is based on measurement of Total 25-OHD, with levels <20 ng/mL indicative of Vitamin D deficiency while levels between 20 ng/mL and 30 ng/mL suggest insufficiency. Optimal levels are > or=30ng/mL. For more information on this test, go to [email or web address] GLUCOSE REFERENCE RANGE BASED ON FASTING SPECIMEN. 79 The upper reference limit for Creatinine is approximately 13% higher for people identified as -[place]. 80 THE CURRENT LOT OF FREE T4 REAGENT AVAILABLE FROM THE ENTRY [employer] ADMINISTRATIVE ASSISTANT PRODUCES RESULTS THAT ARE APPROXIMATELY 9% HIGHER THAN PREVIOUS REAGENT LOTS. PLEASE INTERPRET THESE RESULTS ACCORDINGLY. 81 LDL-CHOLESTEROL RISK CATEGORY* GOAL VERY HIGH [...] IS THE RECOMMENDED ASSAY. THIS TEST CODE (65186W) MUST BE COLLECTED IN A RED-TOP TUBE [...] REFERENCE RANGE BASED ON FASTING SPECIMEN. 90 LDL-CHOLESTEROL RISK CATEGORY* GOAL VERY HIGH (E.G. DIABETES + CVD) <70 MG/DL HIGH (DIABETICS; CHD RISK EQUIVALENTS) <100 MG/DL MODERATELY HIGH (MULTIPLE(2+) RISK FACTORS) <130 MG/DL 0 TO 1 RISK FACTORS <160 MG/DL * NCEP REPORT. CIRCULATION 2004; 110: 227-239 91 THIS TEST WAS PERFORMED USING THE [employer]EM[employer] CHEMILUMINESCENT METHOD. VALUES OBTAINED FROM DIFFERENT ASSAY METHODS CANNOT BE USED INTERCHANGEABLY. PSA LEVELS, REGARDLESS OF VALUE, SHOULD NOT BE INTERPRETED ABSOLUTE EVIDENCE OF THE PRESENCE OR ABSENCE OF DISEASE. 92 GLUCOSE REFERENCE RANGE BASED ON FASTING SPECIMEN. 93 LDL-CHOLESTEROL RISK CATEGORY* GOAL VERY HIGH [...] NCEP REPORT. CIRCULATION 2004; 110: 227-239 95 THIS ASSAY IS NOT INTENDED A CANCER SCREENING TEST. *Total_PSA methodology Axsym-MEIA, standardized to WHO 1st IS for PSA 96/670 The concentration of PSA in a given specimen, determined with assays from different manufacturers, can vary due to differences in assay methods and reagent specificity. Values obtained from different assay methods cannot be used interchangeably. 96 Note: Persistent reduction for 3 months or more in an eGFR <60 mL/min/1.73 m2 defines CKD. Patients with eGFR values >/=60 mL/min/1.73 m2 may also have CKD if evidence of persistent proteinuria is present. The original MDRD equation for estimated GFR is not valid for patients less than 18 years of age. Additional information may be found at [email or web address]. 97 LDL-CHOLESTEROL RISK CATEGORY* GOAL VERY HIGH (E.G. DIABETES + CVD) <70 MG/DL HIGH (DIABETICS; CHD RISK EQUIVALENTS) <100 MG/DL MODERATELY HIGH (MULTIPLE(2+) RISK FACTORS) <130 MG/DL 0 TO 1 RISK FACTORS <160 MG/DL * NCEP REPORT. CIRCULATION 2004; 110: 227-239 98 Anion gap measurement may be of limited value in the presence of any alkalosis, especially in a combined acid base disorder. . 99 Please note change in reference range effective 07 . 100 CHOLESTEROL INTERPRETATION: Desirable: Less than 200 MG/DL Borderline-High Risk: 200-239 MG/DL High-Risk: 240 MG/DL and over 101 HDL INTERPRETATION: Undesirable: High Risk: Less than 40 MG/DL Desirable: Low Risk: Greater than 60 MG/DL 102 LDL INTERPRETATION: Low Risk Optimal Level: LDL Less than 100 MG/DL Near or Above Optimal: LDL 100-129 MG/DL Borderline High Risk: LDL 130-159 MG/DL High Risk: LDL 160-189 MG/DL Very High Risk: LDL Greater than 189 MG/DL 103 Lymphopenia % 104 * SERUM LEVELS OF PSA MEASURED USING THE SIRIA Bolster ACCESS HYBRITECH IMMUNOASSAY SHOULD NOT BE INTERPRETED ABSOLUTE EVIDENCE OF THE PRESENCE OR ABSENCE OF DISEASE. THE PSA VALUE SHOULD BE USED IN CONJUNCTION WITH OTHER PERTINENT CLINICAL DIAGNOSTIC PROCEDURES. 105 GLUCOSE REFERENCE RANGE BASED ON FASTING SPECIMEN. 106 THE GFR ESTIMATE IS NOT ADJUSTED FOR RACE, IF THE PATIENT RACE IS -[place], THE GFR ESTIMATE MUST BE MULTIPLIED BY A FACTOR OF 1.21. 107 HDL REFERENCE RANGES ADULTS (20 YEARS & OLDER) DESIRABLE: > OR=60 MG/DL HIGHER RISK: <40 MG/DL 108 LDL-CHOLESTEROL RISK CATEGORY* GOAL VERY HIGH (E.G. DIABETES + CVD) <70 MG/DL HIGH (DIABETICS; CHD RISK EQUIVALENTS) <100 MG/DL MODERATELY HIGH (MULTIPLE(2+) RISK FACTORS) <130 MG/DL 0 TO 1 RISK FACTORS <160 MG/DL * NCEP REPORT. CIRCULATION 2004; 110: 227-239 109 PSA VALUES FROM DIFFERENT ASSAY METHODS CANNOT BE USED INTERCHANGEABLY. THIS ASSAY WAS PERFORMED USING THE [employer] CHEMILUMINESCENCE METHOD. 110 HDL REFERENCE RANGES ADULTS [...] FOR RACE, IF THE PATIENT RACE IS -[place], THE GFR ESTIMATE MUST BE MULTIPLIED BY [...] . Procedures Date Code Description Status 11/21/2016 63970 EKG-Tracing & Report Completed 11/20/2016 80433 Holter Monitor Office Completed 11/09/2016 04361 Echocardiography Completed 11/06/2016 80327 Non-Invcorrotid/Comp /Bilat Study Completed 10/22/2015 67244 Spirometry Graphic Record/Max Voluntary Vent Completed 10/22/2015 75690 EKG-Tracing & Report Completed 10/21/2015 77007 PVR-Atrerial Study Completed 10/21/2015 43977 Holter Monitor Office Completed 10/14/2015 542461941 Bone Mineral Density Test Completed 10/14/2015 35087 Dxa Bone Density [employer] Vertebral Fracture Completed Assessment 10/11/2015 97541 Non-Invcorrotid/Comp /Bilat Study Completed 10/11/2015 30632 Echocardiography Completed 10/09/2014 95689 EKG-Tracing & Report Completed 10/07/2014 42895 Holter Monitor Office Completed 09/24/2014 50910 Non-Invcorrotid/Comp /Bilat Study Completed 09/21/2014 33668 Echocardiography Completed 07/15/2013 58869 EKG-Tracing & Report Completed 07/14/2013 55785 Holter Monitor Office Completed 07/10/2013 72411 Bone Density Completed 07/08/2013 12253 Spirometry Graphic Record/Max Voluntary Vent Completed 07/07/2013 01956 Echocardiography Completed 07/01/2013 66399 Non-Invcorrotid/Comp /Bilat Study Completed 06/30/2013 54552 PVR-Atrerial Study Completed 04/26/2012 03102 EKG-Tracing & Report Completed 04/25/2012 10420 PVR-Atrerial Study Completed 04/25/2012 01583 Spirometry Graphic Record/Max Voluntary Vent Completed 04/25/2012 81895 Holter Monitor Office Completed 04/25/2012 74559 Bone Density Completed 04/23/2012 62049 Non-Invcorrotid/Comp /Bilat Study Completed 04/23/2012 48851 Echocardiography Completed 02/09/2011 33928 Bone Density,Vertebral Fracture Completed 02/09/2011 59558 Bone Density Completed 02/08/2011 54311 EKG-Tracing & Report Completed 02/08/2011 30612 PVR-Atrerial Study Completed 02/08/2011 25462 Non-Invcorrotid/Comp /Bilat Study Completed 02/08/2011 83908 Echocardiography Completed 02/08/2011 77394 Holter Monitor Office Completed 02/21/2010 04120 PFT Evaluation Completed 02/21/2010 85167 PVR-Atrerial Study Completed 02/21/2010 20348 Holter Monitor Office Completed 02/21/2010 41360 EKG-Tracing & Report Completed 02/14/2010 09507 Non-Invcorrotid/Comp /Bilat Study Completed 02/14/2010 89286 Echocardiography Completed 10/29/2008 02411 Holter Monitor Office Completed 10/29/2008 66563 EKG-Tracing & Report Completed 10/21/2008 30558 Non-Invcorrotid/Comp /Bilat Study Completed 10/21/2008 41391 Echocardiography Completed 01/06/2008 15990 PVR-Atrerial Study Completed 11/11/2007 41957 PVR-Atrerial Study Completed 11/11/2007 39238 Holter Monitor Office Completed 11/11/2007 51182 EKG-Tracing & Report Completed 11/05/2007 13397 Doppler Color Flow Velocity Completed 11/05/2007 91647 Doppler/ECHO Completed 11/05/2007 26748 ECHO-2D W/Wo M-Mode Completed 11/05/2007 24937 Non-Invcorrotid/Comp /Bilat Study Completed 03/05/2007 05378316 Colonoscopy Completed 11/23/2006 44862 PFT Evaluation Completed 11/23/2006 37371 Non-Invcorrotid/Comp /Bilat Study Completed 11/23/2006 37891 Doppler Color Flow Velocity Completed 11/23/2006 06614 Doppler/ECHO Completed 11/23/2006 27201 ECHO-2D W/Wo M-Mode Completed 11/23/2006 13093 Holter Monitor Office Completed 11/23/2006 77403 EKG-Tracing & Report Completed 01/12/2006 35403 Non-Invcorrotid/Comp /Bilat Study Completed 01/12/2006 58273 Doppler Color Flow Velocity Completed 01/12/2006 61525 Doppler/ECHO Completed 01/12/2006 31346 ECHO-2D W/Wo M-Mode Completed 01/12/2006 86799 Holter Monitor Office Completed 01/12/2006 92164 EKG-Tracing & Report Completed 01/05/2005 98795 Holter Monitor Office Completed 01/05/2005 08297 EKG-Tracing & Report Completed 01/02/2005 83972 Non-Invcorrotid/Comp /Bilat Study Completed 01/02/2005 81453 Doppler Color Flow Velocity Completed 01/02/2005 62972 Doppler/ECHO Completed 01/02/2005 67298 ECHO-2D W/Wo M-Mode Completed Encounters Type Date Location Provider Dx Diagnosis Office Visit 10/29/2017 Main Office Jax Hall MD E78.5 Hyperlipidemia , 2:10p unspecified I34.0 Nonrheumatic mitral (valve) insufficiency I65.23 Occlusion and stenosis of bilateral carotid arteries G47.33 Obstructive sleep apnea (adult) (pediatric) E11.65 Type 2 diabetes mellitus with hyperglycemia E55.9 Vitamin D deficiency, unspecified I11.9 Hypertensive heart disease without heart failure I35.0 Nonrheumatic aortic (valve) stenosis E66.09 Other obesity due to excess calories Office Visit 08/22/2017 11:10a Main Office Jax Hall E78.Darcie Piper MD unspecified Office Visit 07/24/2017 11:10a Main Office [...] Office Visit 02/21/2016 11:50a Main Office Jax Hall G47.33 Obstructive sleep MD apnea (adult) (pediatric) Q23.3 Congenital mitral insufficiency I11.9 Hypertensive heart disease without heart failure E11.65 Type 2 diabetes mellitus with hyperglycemia Office Visit 01/31/2016 11:00a Main Office Jax Hall, G47.33 Obstructive sleep apnea (adult) (pediatric) Q23.3 Congenital mitral insufficiency I11.9 Hypertensive heart disease without heart failure E78.5 Hyperlipidemia, unspecified E11.65 Type 2 diabetes mellitus with hyperglycemia Office Visit 11/01/2015 10:20a Main Office Jax Hall, G47.33 Obstructive sleep apnea (adult) (pediatric) R00.2 Palpitations Q23.3 Congenital [...] Sleep Apnea Adult Pediatric 414.01 Coronary Atherosclerosis [place] 402.10 Hypertensive Heart Disease Benign W/O Heart [...] Benign W/O Heart Failure 414.01 Coronary Atherosclerosis [place] 746.6 Mitral Insufficiency Congenital 433.10 Occlusion & Stenosis Carotid Artery W/O Cerebral Infarction 278.00 Obesity Unspec Office Visit 12/17/2012 10:00a Main Office Jax Hall, 272.4 Hyperlipidemia Other Unspec 327.23 Obstructive Sleep Apnea Adult Pediatric 402.10 Hypertensive Heart Disease Benign W/O Heart Failure 414.01 Coronary Atherosclerosis [place] Office Visit 05/13/2012 10:20a Main Office Jax Hall, 272.4 Hyperlipidemia Other Unspec 327.23 Obstructive Sleep Apnea Adult Pediatric 402.10 Hypertensive Heart Disease Benign W/O Heart Failure 414.01 Coronary Atherosclerosis [place] 746.6 Mitral Insufficiency Congenital Office Visit 12/25/2011 10:40a Main Office Jax Hall, 272.4 Hyperlipidemia Other Unspec 402.10 Hypertensive Heart Disease Benign W/O Heart Failure 414.01 Coronary Atherosclerosis [place] 327.23 Obstructive Sleep Apnea Adult Pediatric 746.6 Mitral Insufficiency Congenital Office Visit 06/26/2011 11:00a Main Office Jax Hall, 272.4 Hyperlipidemia Other Unspec Office Visit 02/27/2011 11:20a Main Office Jax Hall, 733.00 Osteoporosis Unspec MD 433.10 Occlusion & Stenosis Carotid Artery W/O Cerebral Infarction 272.4 Hyperlipidemia Other Unspec 402.10 Hypertensive Heart Disease Benign W/O Heart Failure 414.01 Coronary Atherosclerosis [place] 278.00 Obesity Unspec 327.23 Obstructive Sleep Apnea Adult Pediatric V03.82 Streptococcus Pneumoniae Vaccination Spec Other 268.9 Vitamin D Deficiency Unspec Office Visit 01/03/2011 2:00p Main Office Jax Hall, 272.4 Hyperlipidemia Other Unspec 402.10 Hypertensive Heart Disease Benign W/O Heart Failure 414.01 Coronary Atherosclerosis [place] 327.23 Obstructive Sleep Apnea Adult Pediatric 276.70 Hyperkalemia V04.81 Need For Prophylactic Vaccination & Inoculation/Influenza Office Visit 12/20/2010 2:50p Main Office Jax Hall, 604.99 Orchitis & MD Epididymitis Other Office Visit 10/24/2010 3:20p Main Office Jax Hall, 272.4 Hyperlipidemia Other Unspec 402.10 Hypertensive Heart Disease Benign W/O Heart Failure 414.01 Coronary Atherosclerosis [place] 327.23 Obstructive Sleep Apnea Adult Pediatric 746.6 Mitral Insufficiency Congen[place] 424.0 Mitral Valve Disorder 786.59 Pain Chest Other Office Visit 08/15/2010 2:40p Main Office Jax Hall, 272.4 Hyperlipidemia Other Unspec 402.10 Hypertensive Heart Disease Benign W/O Heart Failure 414.01 Coronary Atherosclerosis [place] 327.23 Obstructive Sleep Apnea Adult Pediatric Office Visit 07/18/2010 11:20a Main Office Jax Hall, 272.4 Hyperlipidemia Jana JACKSON Unspec 327.23 Obstructive Sleep Apnea Adult Pediatric 402.10 Hypertensive Heart Disease Benign W/O Heart Failure Office Visit 06/27/2010 10:20a Main Office Jax Hall, 272.4 Hyperlipidemia Jana JACKSON Unspec 327.23 Obstructive Sleep Apnea Adult Pediatric 746.6 Mitral Insufficiency Congenital 424.0 Mitral Valve Disorder 414.01 Coronary Atherosclerosis [place] Office Visit 02/28/2010 10:30a Main Office Jax Hall, 272.4 Hyperlipidemia Jana JACKSON Unspec 327.23 Obstructive Sleep Apnea Adult Pediatric 746.6 Mitral Insufficiency Congenital 424.0 Mitral Valve Disorder 402.10 Hypertensive Heart Disease Benign W/O Heart Failure 414.01 Coronary Atherosclerosis [place] V04.81 Need For Prophylactic Vaccination & Inoculation/Influenza Office Visit 10/25/2009 10:50a Main Office Jax Hall, 272.4 Hyperlipidemia Jana JACKSON Unspec 424.0 Mitral Valve Disorder 402.10 Hypertensive Heart Disease Benign W/O Heart Failure 327.23 Obstructive Sleep Apnea Adult Pediatric 427.81 Sinoatrial Node Dysfunction Office Visit 06/14/2009 10:00a Main Office Jax Hall, 272.4 Hyperlipidemia Jana JACKSON Unspec 424.0 Mitral Valve Disorder 402.10 Hypertensive Heart Disease Benign W/O Heart Failure 327.23 Obstructive Sleep Apnea Adult Pediatric 414.01 Coronary Atherosclerosis [place] Office Visit 03/08/2009 10:10a Main Office Jax Hall, 272.4 Hyperlipidemia Jana JACKSON Unspec 424.0 Mitral Valve Disorder 402.10 Hypertensive Heart Disease Benign W/O Heart Failure 327.23 Obstructive Sleep Apnea Adult Pediatric Office Visit 11/09/2008 10:30a Main Office Jax Hall, 272.4 Hyperlipidemia Other MD Unspec 424.0 Mitral Valve Disorder 402.10 Hypertensive Heart Disease Benign W/O Heart Failure 414.01 Coronary Atherosclerosis [place] 327.23 Obstructive Sleep Apnea Adult Pediatric Office [...] Cerebral Infarction 272.40 Hyperlipidemia 414.01 Coronary Atherosclerosis [place] 402.10 Hypertensive Heart Disease Benign W/O Heart Failure 724.5 Backache Unspec Office Visit 12/19/2006 11:00a Main Office Jax Hall, 746.60 Mitral Regurgitation MD 427.81 Sinoatrial Node Dysfunction 433.10 Occlusion & Stenosis Carotid Artery W/O Cerebral Infarction 427.90 Arrhythmia 272.40 Hyperlipidemia 414.01 Coronary Atherosclerosis [place] 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 276.70 Hyperkalemia 592.0 Calculus Of Kidney 402.10 Hypertensive Heart Disease Benign W/O Heart Failure Office Visit 08/07/2006 3:20p Main Office Jax Hall, 746.60 Mitral Regurgitation 272.40 Hyperlipidemia 414.01 Coronary Atherosclerosis [place] 427.90 Arrhythmia 397.0 Tricuspid Valve Disease 433.10 Occlusion & Stenosis Carotid Artery W/O Cerebral Infarction 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 276.70 Hyperkalemia 785.20 Heart Murmur Office Visit 03/14/2006 10:30a Main Office Josh Nguyen MD 465.9 URI Upper Respiratory Infections Acute Unspec Sites Office Visit 01/23/2006 10:40a Main Office Jax Hall, 746.60 Mitral Regurgitation 272.40 Hyperlipidemia 414.01 Coronary Atherosclerosis [place] 427.90 Arrhythmia 592.0 Calculus Of Kidney 724.30 Sciatica 397.0 Tricuspid Valve Disease Office Visit 09/12/2005 2:50p Main Office Jax Hall, 572.8 Liver Disease Chronic MD Other Sequelae Office Visit 08/28/2005 10:50a Main Office Jax Hall, 272.40 Hyperlipidemia 433.10 Occlusion & Stenosis Carotid Artery W/O Cerebral Infarction 414.01 Coronary Atherosclerosis [place] 786.59 Pain Chest Other 746.60 Mitral Regurgitation [...] Artery W/O Cerebral Infarction 414.01 Coronary Atherosclerosis [place] 786.59 Pain Chest Other 746.60 Mitral Regurgitation 427.90 Arrhythmia 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 724.5 Backache Unspec Office Visit 05/10/2005 10:40a Main Office Jax Hall 592.0 Calculus Of Kidney MD Office Visit 01/17/2005 10:40a Main Office Jax Hall, 402.10 Hypertensive Heart MD Disease Benign W/O Heart Failure V03.7 Tetanus Toxoid Vaccination & Inoculation Office Visit 08/29/2004 10:50a Main Office Jax Castellano 414.01 Coronary MD Rafael Atherosclerosis [place] 272.40 Hyperlipidemia Office Visit 05/30/2004 10:10a Main Office Jax Hall, 276.70 Hyperkalemia MD Office Visit 05/02/2004 10:50a Main Office Jax Hall, 402.10 Hypertensive Heart MD Disease Benign W/O Heart Failure Office Visit [...] Appointment(s):01/28/2018 1:30 pm - Ultrasound at Main [id number]/24/2018 8:00 am - Nurse at Main [id number]/23/2018 9:15 am - Nurse at Main [id number] 11:00 am - Jax Hall MD at Main [id number]/29/2017 - Jax Hall MDE78.5 Hyperlipidemia, unspecifiedComments:Counselled on role of diet and excersize and importance to keep compliance with medication if prescribed and side effects. The importance of routine monitoring of blood lipids and liver tests to managetreatment and avoid side effects were discussed. Usual follow up is 3 months for LFT and Lipid profile. Patient education including dietary guidelines and materials provided.I34.0 Nonrheumatic mitral (valve) insufficiencyComments:Issues of symptoms and aggravating lifestyle factors such as sleep, stress and dietary choices discussed. Symptoms and medication treatment and compliance and side effects discussed as needed. Need forSBE prophalaxis with antibiotics addressed and discussed where indicated. Follow up Echocardiogram as required.Discussed valvular pathology and need if indicated for antibiotic prophylaxis to prevent S.B.E. Medication compliance and side effects issues addressed. Follow up echocardiogram as warranted.Results of 2D echo and other testing reviewed and discussed with patient possible etiologies, progression prognosis and need for prophylactic antibiotics before dental procedures if warranted for S.B.E. prophylaxis. Routine follow up/ surveillance planned.I65.23 Occlusion and stenosis of bilateral carotid arteriesComments: Discussed role of life style choices in dietary fats and exercise plays on evolution of [place] disease and importance of controlling cholesterol. Medications role and side effects in disease progression prevention discussed and need for compliance with prescribed treatment. Follow up testing for progression such as ultrasound surveillance [id number] Obstructive sleep apnea (adult) (pediatric)Comments:Continue CPAPWeight LossE11.65 Type 2 diabetes mellitus with hyperglycemiaNew Medication:Metformin HCL ER (Mod) 1000 mg - 1 by mouth every dayJanuvia 50 mg - 1 by mouth every dayComments:Continue with medication as directed. Continue with reduced carb diet. To continue with fingerstick monitoring Q Day Continue to follow reduced carbohydrate low fat diet. Exercise regularly. Needs annual blood sugar evaluation. Emphasized weight control to manage blood sugar skilled nursing.E55.9 Vitamin D deficiency, [id number] Hypertensive heart disease without heart failureComments:CONT. TO [...] checks and laboratory tests related to medication reviewed.I35.0 Nonrheumatic aortic (valve) [id number] Other obesity due to excess caloriesComments: Discussed health effects of obesity and healthy diet choices. Effect on other diseases and interaction of dietary factors stressed. Weight loss options discussed and information on community resources,various weight loss strategies and popular diets reviewed.
[2018-01-01 10:21] VITALS: BP 122/84
--- NOTE | 2018-01-01 10:30 | UC ---
[facility] General HPI - HPI Summary HPI Summary: 72 yo gentleman c/o progressive worse L flank pain and L lower abd pain over the last 2 weeks, particularly bad last couple days. Seen by Dr. Hall, CT abd / pelvis ordered but insurance has not yet approved. No gross hematuria. + dark stool 2 weeks ago, currently brown. No dysuria. Some frequency (?). No diarrhea. + tenesmus last night. No hx abd surgery. + hx renal stones 2005. No chest pain / sob. No n/v. + DM, dx'd last few years, reports that BS's typically low 100's. - History of Current Complaint Chief Complaint: UCGI Stated Complaint: LEFT SIDE BACK PAIN Time Seen by Provider: 01/01/18 10:27 Hx Obtained From: Patient Pain Intensity: 7 - Allergy/Home Medications Allergies/Adverse Reactions: Allergies Allergy/AdvReac Type Severity Reaction Status Date / Time No Known Allergies Allergy Verified 01/01/18 10:14 Home Medications: Home Medications Azelastine 0.15% NASAL(NF) [Astepro 0.15% NASAL (NF)] 1 - 2 spray BOTH NARES DAILY 01/01/18 [History Confirmed 01/01/18] Diltiazem CD CAP* [Cardizem CD CAP*] 360 mg PO DAILY 01/01/18 [History Confirmed 01/01/18] Enalapril TAB* [Vasotec TAB*] 10 mg PO BID 01/01/18 [History Confirmed 01/01/18] Ibuprofen TAB* [Advil TAB*] 200 mg PO Q6H PRN 01/01/18 [History Confirmed ] LoraTADine TAB(NF) [Claritin 10 MG TAB(NF)] 10 mg PO DAILY 01/01/18 [History Confirmed 01/01/18] Lutein [Natural Lutein] 20 mg PO DAILY 01/01/18 [History Confirmed 01/01/18] Metformin ER (NF) 500 mg PO DAILY 01/01/18 [History Confirmed 01/01/18] Simvastatin TAB(NF) [Zocor(NF)] 80 mg PO DAILY 01/01/18 [History Confirmed 01/01] Sitagliptin (NF) [Januvia (NF)] 50 mg PO DAILY 01/01/18 [History Confirmed 01/01] Turmeric Root Extract [Ra Turmeric] 500 mg PO DAILY 01/01/18 [History Confirmed 01/01/18] Vitamin THERAPEUTIC TAB* [Theragran TAB*] 1 tab PO DAILY 01/01/18 [History Confirmed 01/01/18] PMH/Surg Hx/FS Hx/Imm Hx - Surgical History Surgical History: Yes Surgery Procedure, Year, and Place: Left Rotator Cuff, 2003, [place] - Family History Known Family History: Positive: Unknown - Social History Alcohol Use: Occasionally Substance Use Type: None Smoking Status (MU): Former Smoker Length of Time of Smoking/Using Tobacco: Occasional Cigar or Pipe x 15 Years When Did the Patient Quit Smoking/Using Tobacco: ~1977 Review of Systems Constitutional: Negative Skin: Negative Eyes: Negative ENT: Negative Respiratory: Negative Cardiovascular: Negative Gastrointestinal: Other - see hpi Genitourinary: Other - see hpi Motor: Negative Neurovascular: Negative Musculoskeletal: Negative Neurological: Negative Psychological: Negative Is Patient Immunocompromised?: No All Other Systems Reviewed And Are Negative: Yes Physical Exam Triage Information Reviewed: Yes Appearance: Well-Nourished - nad, but looks tired. Vital Signs: Initial Vital Signs Temp 98.5 F 01/01/18 10:11 Pulse 66 01/01/18 10:11 Resp 16 01/01/18 10:11 BP 122/84 01/01/18 10:11 Pulse Ox 97 01/01/18 10:11 Eye Exam: Normal ENT Exam: Normal Neck exam: Normal - no c/o pain. moves neck routine. Respiratory Exam: Normal Respiratory: Positive: Chest non-tender, Lungs clear, Normal breath sounds, No respiratory distress, No accessory muscle use Cardiovascular Exam: Normal Cardiovascular: Positive: RRR, Pulses Normal, Brisk Capillary Refill, Other: - + syst murmur (hx mvp) Abdominal Exam: Other - Tender LLQ and mid pelvic region. + mild rebound. No guard. Nondistended. No cvat elicited. No flank pain elicited with pressure. Musculoskeletal Exam: Normal - mild venous insuff changes bilat. Neurological Exam: Normal - grossly nonfocal Psychological Exam: Normal - conversing easily and appropriately Skin Exam: Normal Course/Dx - Course Course Of Treatment: REviewed urine dip with pt (+ prot, + 3+ blood) sg 1.020. Recommend Emerg Dept eval /tx. Mr. Raman carefully considered and agrees to go. Declines EMS. will drive. I spoke with Ramona Ward NP 11:05am. - Differential Dx - Multi-Symptom Provider Diagnoses: Acute Left abd pain Discharge - Sign-Out/Discharge Documenting (check all that apply): Patient Departure All imaging exams completed and their final reports reviewed: No Studies - Discharge Plan Condition: Guarded Disposition: HOME-RECOMMEND TO ED Patient Education Materials: Hematuria (ED), Acute Abdominal Pain (ED) Referrals: Jax Hall MD [Primary Care Provider] - Additional Instructions: Please go directly to the Emergency Department. Call 911 if problems en route. Do not eat or drink anything on the way. Ultimately follow up with your primary care physician, call for appointment when you are discharged. - Billing Disposition and Condition Condition: GUARDED Disposition: Home-Recommend to ED
== END 2018-01-01 11:04 | disposition home health service (06) ==
LOC: UCCORT 09:21
DX: R10.9 Unspecified abdominal pain (principal); M54.9 Dorsalgia, unspecified; Z87.891 Personal history of nicotine dependence
CPT/HCPCS: 81003; 99203; G0463